=== PATIENT | male | born 1980 | race Caucasian/White ===

== ENCOUNTER 2016-05-25 19:22 | Emergency (ER) | payer OTHER ==
[2016-05-25] MEDS ORDERED: ONDANSETRON 4 MG/2 ML VIAL IVP STA (19:39)
[2016-05-25] MEDS ORDERED: LORazepam 2 MG/ML SYRINGE IV STA (19:39)
[2016-05-25] MEDS ORDERED: SODIUM CHLORIDE 0.9% 1,000 ML IV ONE (19:40)
--- NOTE | 2016-05-25 19:44 | ED ---
General Adult HPI - General Stated complaint: withdrawals Time Seen by Provider: 05/25/16 19:26 Source: patient, RN notes reviewed Mode of arrival: ambulatory Limitations: no limitations - History of Present Illness Initial comments: 36-year-old male presents emergency Department with chief complaint of opiate withdrawal. Patient states that he uses heroin and narcotic pills. Patient states that his been on this for several years. Patient states she does not use intravenous states she does not heroin. Patient states he has not used since last night and his been having nausea, vomiting and diarrhea with abdominal pain and cramping. Patient states that he was in treatment one time but was kicked out for behavior. Patient denies any chest pain or shortness breath. Denies any fevers or chills. Patient denies suicidal thoughts or homicidal ideation. Patient states she does see Dr. Lee at [facility] and takes Neurontin. - Related Data Home Medications Medication Instructions Recorded Confirmed Albuterol Inhaler [Ventolin Hfa 1 - 2 puff INHALATION RT-Q6H PRN 05/25/16 Inhaler] Gabapentin [Neurontin] 600 mg PO BID 05/25/16 05/25/16 Previous Rx's Medication Instructions Recorded Ondansetron Odt [Zofran Odt] 4 mg PO Q8HR PRN #10 tab 05/25/16 cloNIDine HCL [Catapres] 0.1 mg PO BID #10 tab 05/25/16 Allergies Allergy/AdvReac Type Severity Reaction Status Date / Time methylphenidate HCl Allergy Rash/Hives Verified 05/25/16 19:43 [From Ritalin] venom-honey bee Allergy Rash/Hives Verified 05/25/16 19:43 [bee venom (honey bee)] Review of Systems ROS Statement: Those systems with pertinent positive or pertinent negative responses have been documented in the HPI. ROS Other: All systems not noted in ROS Statement are negative. 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, ADD, Bipolar History of Any Multi-Drug Resistant Organisms: None Reported Past Surgical History: No Surgical Hx Reported Past Anesthesia/Blood Transfusion Reactions: No Reported Reaction Past Psychological History: ADD/ADHD, Anxiety, Bipolar Smoking Status: Current every day smoker Past Alcohol Use History: None Reported Past Drug Use History: None Reported - Past Family History mother Family Medical History: Diabetes Mellitus, Hypertension General Exam General appearance: alert, in no apparent distress, anxious Head exam: Present: atraumatic, normocephalic, normal inspection Eye exam: Present: normal appearance, PERRL, EOMI. Absent: scleral icterus, conjunctival injection, periorbital swelling Respiratory exam: Present: normal lung sounds bilaterally. Absent: respiratory distress, wheezes, rales, rhonchi, stridor Cardiovascular Exam: Present: regular rate, normal rhythm, normal heart sounds. Absent: systolic murmur, diastolic murmur, rubs, gallop, clicks GI/Abdominal exam: Present: soft, tenderness (Diffuse), normal bowel sounds. Absent: distended, guarding, rebound, rigid Back exam: Absent: CVA tenderness (R), CVA tenderness (L) Neurological exam: Present: alert, oriented X3, CN II-XII intact Psychiatric exam: Present: anxious Skin exam: Present: warm, dry, intact, normal color. Absent: rash Course Vital Signs 05/25/16 19:40 Temperature 98.6 F Pulse Rate 70 Respiratory 16 Rate Blood Pressure 141/80 O2 Sat by Pulse 98 Oximetry Medical Decision Making - Medical Decision Making 28-year-old male presented for opiate withdrawal. Patient's up within normal limits. Patient is not suicidal or homicidal. Patient will be discharged with Zofran, clonidine for withdrawal symptoms. Patient has outpatient resources for treatment. Return parameters were discussed. - Lab Data Result diagrams: 05/25/16 20:20 05/25/16 20:20 Lab Results 05/25/16 05/25/16 05/25/16 Range/Units 20:20 20:20 20:30 WBC 7.0 (3.8-10.6) k/uL RBC 4.60 (4.30-5.90) m/uL Hgb 14.2 (13.0-17.5) gm/dL Hct 43.2 (39.0-53.0) % MCV 94.0 (80.0-100.0) fL MCH 31.0 (25.0-35.0) pg MCHC 33.0 (31.0-37.0) g/dL RDW 13.3 (11.5-15.5) % Plt Count 259 (150-450) k/uL Neutrophils % 64 % Lymphocytes % 24 % Monocytes % 7 % Eosinophils % 2 % Basophils % 0 % Neutrophils # 4.5 (1.3-7.7) k/uL Lymphocytes # 1.7 (1.0-4.8) k/uL Monocytes # 0.5 (0-1.0) k/uL Eosinophils # 0.1 (0-0.7) k/uL Basophils # 0.0 (0-0.2) k/uL Sodium 139 (137-145) mmol/L Potassium 4.7 (3.5-5.1) mmol/L Chloride 105 (98-107) mmol/L Carbon Dioxide 25 (22-30) mmol/L Anion Gap 9 mmol/L BUN 15 (9-20) mg/dL Creatinine 1.13 (0.66-1.25) mg/dL Est GFR (MDRD) Af Amer >60 (>60 ml/min/1.73 sqM) Est GFR (MDRD) Non-Af >60 (>60 ml/min/1.73 sqM) Glucose 89 (74-99) mg/dL Calcium 9.8 (8.4-10.2) mg/dL Total Bilirubin 1.3 (0.2-1.3) mg/dL AST 25 (17-59) U/L ALT 32 (21-72) U/L Alkaline Phosphatase 58 (38-126) U/L Total Protein 6.8 (6.3-8.2) g/dL Albumin 4.2 (3.5-5.0) g/dL Amylase 41 (30-110) U/L Lipase 179 (23-300) U/L Urine Color Light Yellow Urine Appearance Clear (Clear) Urine pH 7.0 (5.0-8.0) Ur Specific Brady 1.008 (1.001-1.035) Urine Protein Negative (Negative) Urine Glucose (UA) Negative (Negative) Urine Ketones Negative (Negative) Urine Blood Negative (Negative) Urine Nitrate Negative (Negative) Urine Bilirubin Negative (Negative) Urine Urobilinogen <2.0 (<2.0) mg/dL Ur Leukocyte Esterase Negative (Negative) Serum Alcohol <10 mg/dL Disposition Clinical Impression: Opiate withdrawal Disposition: HOME SELF-CARE Condition: Stable Instructions: Narcotic Abuse (ED) Additional Instructions: Please return to the Emergency Department if symptoms worsen or any other concerns. Follow up outpatient with drug abuse center Prescriptions: Ondansetron Odt [Zofran Odt] 4 mg PO Q8HR PRN #10 tab PRN Reason: Nausea cloNIDine HCL [Catapres] 0.1 mg PO BID #10 tab Time of Disposition: 21:05
[2016-05-25 20:35] LABS: Basophils % (A) 0 %; CH 31.8; Eosinophils # (A) 0.1 k/uL (0-0.7); Eosinophils % (A) 2 %; HCT 43.2 % (39.0-53.0); HDW 2.19; HGB 14.2 gm/dL (13.0-17.5); Luc # (Auto) 0.17; Luc % (Auto) 2; Lymphocytes # (A) 1.7 k/uL (1.0-4.8); Lymphocytes % (A) 24 %; Mean Platelet Volume 7.1; Monocytes # (A) 0.5 k/uL (0-1.0); Monocytes % (A) 7 %; Neutrophils # (A) 4.5 k/uL (1.3-7.7); Neutrophils % (A) 64 %; RDW 13.3 % (11.5-15.5); WBC (Perox) 7.12
[2016-05-25 20:56] LABS: ALT 32 U/L (21-72); AST 25 U/L (17-59); Alcohol <10 mg/dL; Alkaline Phosphatase 58 U/L (38-126); Amylase 41 U/L (30-110); Anion Gap 9 mmol/L; Blood Urea Nitrogen 15 mg/dL (9-20); Calcium 9.8 mg/dL (8.4-10.2); Carbon Dioxide 25 mmol/L (22-30); Chloride 105 mmol/L (98-107); Glucose 89 mg/dL (74-99); Non-African American GFR(MDRD) >60 (>60 ml/min/1.73 sqM); Potassium 4.7 mmol/L (3.5-5.1); Sodium 139 mmol/L (137-145); Total Bilirubin 1.3 mg/dL (0.2-1.3); Total Protein 6.8 g/dL (6.3-8.2)
[2016-05-25 20:58] LABS: Appearance,Urine Clear (Clear); Bilirubin,Urine Negative (Negative); Glucose,Urine (UA) Negative (Negative); Ketones,Urine Negative (Negative); Leukocyte Esterase,Urine Negative (Negative); Nitrite,Urine Negative (Negative); Protein,Urine Negative (Negative); Specific Gravity,Urine 1.008 (1.001-1.035); UA Billing (MACRO vs. MICRO) CHEM; Urobilinogen,Urine <2.0 mg/dL (<2.0)
[2016-05-25 21:15] VITALS: BP 124/72; PULSE 82; RESP 20; TEMP 98.2
== END 2016-05-25 21:17 | disposition home or self-care (01) ==
LOC: EC 19:22
DX: F11.23 Opioid dependence with withdrawal (principal); T40.1X1A Poisoning by heroin, accidental (unintentional), initial encounter; Z88.8 Allergy status to other drugs, medicaments and biological substances; Z91.030 Bee allergy status; Z79.899 Other long term (current) drug therapy
CPT/HCPCS: 36415; 80053; 82150; 83690; 85025; 81003; 80306; 80320; 99284; 96374; 96375; 96361; J2060; J2405

== ENCOUNTER 2016-06-12 17:48 | Emergency (ER) | payer OTHER ==
[2016-06-12 17:57] VITALS: RESP 18
[2016-06-12] MEDS ORDERED: ASPIRIN 81 MG CHEW PO STA (18:18)
--- NOTE | 2016-06-12 18:32 | ED ---
Chest Pain HPI - General Chief Complaint: Chest Pain Stated Complaint: medication abuse Time Seen by Provider: 06/12/16 18:09 Source: patient, family, RN notes reviewed Mode of arrival: EMS Limitations: no limitations - History of Present Illness Initial Comments: 36-year-old male presents emergency Department chief complaint of chest pain. Patient states that on-and-off chest pain over the last 2-3 days. Patient states his primary on the left side he states that last a few minutes to hours and then dissipates. Patient states it's not associated with anything. Patient has no known cardiac issues. Patient states he is a smoker of tobacco and marijuana. Patient denies hyperlipidemia, hypertension, diabetes or family history of cardiac disease. Patient states he has no shortness of breath. Patient states the pain is dissipated at this time. Patient denies any associated dizziness, nausea, vomiting, diaphoretic episodes. Patient states that he has taken more [place] and not an unusual but states that he was not intending to harm himself. Patient states he has run out of his [place] in which he is on a pain contract. - Related Data Home Medications Medication Instructions Recorded Confirmed Albuterol Inhaler [Ventolin Hfa 1 - 2 puff INHALATION RT-Q6H PRN 05/25/16 Inhaler] Gabapentin [Neurontin] 600 mg PO BID 05/25/16 06/12/16 Baclofen [Lioresal] 10 mg PO BID PRN 06/12/16 06/12/16 HYDROcodone/APAP 10-325MG [[place] 1 tab PO BID PRN 06/12/16 06/12/16 10-325] Seroquel Xr(Unknown) 1 tab PO HS 06/12/16 06/12/16 Allergies Allergy/AdvReac Type Severity Reaction Status Date / Time methylphenidate HCl Allergy Rash/Hives Verified 06/12/16 18:32 [From Ritalin] venom-honey bee Allergy Rash/Hives Verified 06/12/16 18:32 [bee venom (honey bee)] Review of Systems ROS Statement: Those systems with pertinent positive or pertinent negative responses have been documented in the HPI. ROS Other: All systems not noted in ROS Statement are negative. EKG Findings - EKG Comments: EKG Findings:: EKG performed at 18:056 sinus rhythm with first-degree AV block, rate of 81, MA interval 246, QRS duration 100, QT/QTC 386/448 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, ADD, Bipolar History of Any Multi-Drug Resistant Organisms: None Reported Past Surgical History: No Surgical Hx Reported Past Anesthesia/Blood Transfusion Reactions: No Reported Reaction Past Psychological History: ADD/ADHD, Anxiety, Bipolar Smoking Status: Current every day smoker Past Alcohol Use History: None Reported Past Drug Use History: None Reported - Past Family History mother Family Medical History: Diabetes Mellitus, Hypertension General Exam Limitations: no limitations General appearance: alert, in no apparent distress Head exam: Present: atraumatic, normocephalic, normal inspection Eye exam: Present: normal appearance, PERRL, EOMI. Absent: scleral icterus, conjunctival injection, periorbital swelling ENT exam: Present: mucous membranes moist. Absent: normal exam, normal oropharynx (Edentulous) Neck exam: Present: normal inspection, full ROM. Absent: tenderness, meningismus, lymphadenopathy Respiratory exam: Present: normal lung sounds bilaterally. Absent: respiratory distress, wheezes, rales, rhonchi, stridor Cardiovascular Exam: Present: regular rate, normal rhythm, normal heart sounds. Absent: systolic murmur, diastolic murmur, rubs, gallop, clicks GI/Abdominal exam: Present: soft, normal bowel sounds. Absent: distended, tenderness, guarding, rebound, rigid Back exam: Absent: CVA tenderness (R), CVA tenderness (L) Skin exam: Present: warm, dry, intact, normal color. 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 Patient's EKG, chest x-ray, lab work within normal limits. Patient's pain is not present at this time. Patient believes it is related to his Neurontin. Patient states he'll follow-up with his arm care physician tomorrow and pain management on Friday. Patient is advised to take aspirin daily. Patient is advised follow- up for possible further workup including stress test. Patient was offered observation but refused Disposition Clinical Impression: Atypical chest pain Disposition: HOME SELF-CARE Condition: Stable Instructions: Chest Pain (ED) Additional Instructions: Please return to the Emergency Department if symptoms worsen or any other concerns. Time of Disposition: 19:47
[2016-06-12] MEDS ORDERED: traMADol 50 MG TAB PO STA (18:40)
[2016-06-12 18:41] LABS: Basophils % (A) 1 %; CHCM 34.2; Eosinophils # (A) 0.1 k/uL (0-0.7); Eosinophils % (A) 2 %; HCT 44.6 % (39.0-53.0); HDW 2.27; HGB 14.8 gm/dL (13.0-17.5); Luc # (Auto) 0.11; Luc % (Auto) 2; Lymphocytes # (A) 1.7 k/uL (1.0-4.8); Lymphocytes % (A) 29 %; MCH 31.1 pg (25.0-35.0); MCHC 33.1 g/dL (31.0-37.0); Mean Platelet Volume 7.5; Monocytes # (A) 0.4 k/uL (0-1.0); Monocytes % (A) 7 %; Neutrophils # (A) 3.6 k/uL (1.3-7.7); Neutrophils % (A) 60 %; RBC 4.75 m/uL (4.30-5.90); RDW 13.2 % (11.5-15.5); WBC 5.9 k/uL (3.8-10.6); WBC (Perox) 5.65
[2016-06-12 18:50] LABS: ALT 24 U/L (21-72); AST 17 U/L (17-59); Alkaline Phosphatase 64 U/L (38-126); Anion Gap 11 mmol/L; Blood Urea Nitrogen 14 mg/dL (9-20); Calcium 9.4 mg/dL (8.4-10.2); Carbon Dioxide 23 mmol/L (22-30); Chloride 108 mmol/L (98-107); Glucose 107 mg/dL (74-99); Magnesium 1.9 mg/dL (1.6-2.3); Non-African American GFR(MDRD) >60 (>60 ml/min/1.73 sqM); Sodium 142 mmol/L (137-145); Total Bilirubin 1.8 mg/dL (0.2-1.3); Total Protein 6.8 g/dL (6.3-8.2)
[2016-06-12 18:52] LABS: INR 1.3 (<1.1); Prothrombin Time 12.4 sec (9.0-12.0)
[2016-06-12 19:01] LABS: Creatine Kinase 55 U/L (55-170)
--- NOTE | 2016-06-12 19:03 | XR ---
EXAMINATION TYPE: XR chest 2V DATE OF EXAM: 06/12/2016 6:58 PM COMPARISON: 05/29/2013 HISTORY: Left-sided chest pain TECHNIQUE: Frontal and lateral views of the chest are obtained. FINDINGS: Heart and mediastinum are normal. Lungs are clear. Diaphragm is normal. There are chest le ads. Bony thorax appears intact. IMPRESSION: No active cardiopulmonary disease. There is improved inspiration compared to last exam.
[2016-06-12 19:15] LABS: Creatine Kinase MB 0.8 ng/mL (0.0-2.4); Troponin I <0.012 ng/mL (0.000-0.034)
[2016-06-12 20:02] VITALS: BP 102/50; PULSE 60; TEMP 97.9
== END 2016-06-12 20:01 | disposition home or self-care (01) ==
LOC: EC 17:48
DX: R07.89 Other chest pain (principal); F31.9 Bipolar disorder, unspecified; F17.290 Nicotine dependence, other tobacco product, uncomplicated; Z88.8 Allergy status to other drugs, medicaments and biological substances; Z91.030 Bee allergy status; Z79.899 Other long term (current) drug therapy
CPT/HCPCS: 36415; 71020; 80053; 82550; 82553; 83690; 83735; 84484; 85025; 85610; 85730; 93005; 99285

== ENCOUNTER 2017-05-03 20:24 | Emergency (ER) | payer OTHER ==
[2017-05-03 20:40] VITALS: BP 145/87; PULSE 83; RESP 20; TEMP 99.1
--- NOTE | 2017-05-03 21:15 | ED ---
SOB HPI - General Chief Complaint: Shortness of Breath Stated Complaint: SOB Time Seen by Provider: 05/03/17 21:13 Source: patient, EMS, RN notes reviewed, old records reviewed Mode of arrival: EMS Limitations: no limitations - History of Present Illness Initial Comments: This is a 37-year-old male presents the day with you complain of shortness of breath. He was brought in by the emergency response, states he needs another albuterol inhaler. He received reading treatment in the EMS. Patient reports he feels better that time.When patient arrived emergency apartment he was becoming very irate. Patient reports that staff was "disrespect him". Patient was cursing and screaming in emergency department and there was no specific reasoning. - Related Data Home Medications Medication Instructions Recorded Confirmed Albuterol Inhaler [Ventolin Hfa 1 - 2 puff INHALATION RT-Q6H PRN 05/25/16 Inhaler] Gabapentin [Neurontin] 600 mg PO BID 05/25/16 06/12/16 Baclofen [Lioresal] 10 mg PO BID PRN 06/12/16 06/12/16 HYDROcodone/APAP 10-325MG [[place] 1 tab PO BID PRN 06/12/16 06/12/16 10-325] Seroquel Xr(Unknown) 1 tab PO HS 06/12/16 06/12/16 Previous Rx's Medication Instructions Recorded Albuterol Inhaler [Ventolin Hfa 1 - 2 puff INHALATION Q6HR PRN #2 05/03/17 Inhaler] inhaler Allergies Allergy/AdvReac Type Severity Reaction Status Date / Time methylphenidate HCl Allergy Rash/Hives Verified 06/12/16 18:32 [From Ritalin] venom-honey bee Allergy Rash/Hives Verified 06/12/16 18:32 [bee venom (honey bee)] Review of Systems ROS Statement: Those systems with pertinent positive or pertinent negative responses have been documented in the HPI. ROS Other: All systems not noted in ROS Statement are negative. 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, ADD, Bipolar History of Any Multi-Drug Resistant Organisms: None Reported Past Surgical History: No Surgical Hx Reported Past Anesthesia/Blood Transfusion Reactions: No Reported Reaction Past Psychological History: ADD/ADHD, Anxiety, Bipolar Smoking Status: Current every day smoker Past Alcohol Use History: None Reported Past Drug Use History: Marijuana - Past Family History mother Family Medical History: Diabetes Mellitus, Hypertension General Exam - General Exam Comments Initial Comments: This is a 37 year old male, no distress. Limitations: no limitations General appearance: alert, in no apparent distress Head exam: Present: atraumatic, normocephalic, normal inspection Eye exam: Present: normal appearance, PERRL, EOMI. Absent: scleral icterus, conjunctival injection, periorbital swelling ENT exam: Present: normal exam, mucous membranes moist Neck exam: Present: normal inspection. Absent: tenderness, meningismus, lymphadenopathy Respiratory exam: Present: normal lung sounds bilaterally. Absent: respiratory distress, wheezes, rales, rhonchi, stridor Cardiovascular Exam: Present: regular rate, normal rhythm, normal heart sounds. Absent: systolic murmur, diastolic murmur, rubs, gallop, clicks GI/Abdominal exam: Present: soft, normal bowel sounds. Absent: distended, tenderness, guarding, rebound, rigid Extremities exam: Present: normal inspection, full ROM, normal capillary refill. Absent: tenderness, pedal edema, joint swelling, calf tenderness Back exam: Present: normal inspection Neurological exam: Present: alert, oriented X3, CN II-XII intact Psychiatric exam: Present: normal affect, normal mood Skin exam: Present: warm, dry, intact, normal color. Absent: rash Course Vital Signs 05/03/17 05/03/17 20:36 20:40 Temperature 99.1 F Pulse Rate 83 Respiratory 20 20 Rate Blood Pressure 145/87 O2 Sat by Pulse 95 Oximetry Medical Decision Making - Medical Decision Making This is a 37 year old male comes via EMS for shortness of breath and out of inhaler. Patient arrives and has no wheezing and had been screaming and cursing the entire ED visit. All staff were cooperative with patient and discussed that he needed to stop cursing. Patient lungs are clear, discussed I will write him for another albuterol inhaler. Patient called for a ride home, and was escorted out by security. Disposition Clinical Impression: Shortness of breath Disposition: HOME SELF-CARE Condition: Stable Instructions: Asthma (ED) Additional Instructions: Follow-up with a primary care provider. Return to emergency department if any alarming signs symptoms occur. Use the albuterol inhaler when he have any further episodes of difficulty breathing. Have a wonderful Martha! Prescriptions: Albuterol Inhaler [Ventolin Hfa Inhaler] 1 - 2 puff INHALATION Q6HR PRN #2 inhaler PRN Reason: Shortness Of Breath Referrals: None,Stated [Primary Care Provider] - 1-2 days vYrose Vitale MD [STAFF PHYSICIAN] - 1-2 days Time of Disposition: 21:14
--- NOTE | 2017-05-05 03:01 | CDI ---
Documentation Clarification OP Dear DEBORAH Dc: Please do addendum to ED report for HPI , Physical exam and MDM. Thank you, Ara Tee Faculty Physician If you have any question, Please contact equipment hire manager at [phone] [facility]
== END 2017-05-03 21:26 | disposition home or self-care (01) ==
LOC: EC 20:24
DX: R06.02 Shortness of breath (principal); F31.9 Bipolar disorder, unspecified; F41.9 Anxiety disorder, unspecified; F90.9 Attention-deficit hyperactivity disorder, unspecified type; F17.200 Nicotine dependence, unspecified, uncomplicated; Z79.899 Other long term (current) drug therapy; Z91.030 Bee allergy status; Z88.8 Allergy status to other drugs, medicaments and biological substances
CPT/HCPCS: 99285

== ENCOUNTER 2017-05-13 14:51 | Observation (INO) | payer OTHER ==
[2017-05-13 16:21] LABS: Basophils % (A) 0 %; Eosinophils # (A) 0.1 k/uL (0-0.7); Eosinophils % (A) 2 %; HCT 44.9 % (39.0-53.0); HGB 15.1 gm/dL (13.0-17.5); Lymphocytes # (A) 1.7 k/uL (1.0-4.8); Lymphocytes % (A) 23 %; MCH 30.9 pg (25.0-35.0); MCHC 33.7 g/dL (31.0-37.0); MCV 91.5 fL (80.0-100.0); Mean Platelet Volume 6.9; Monocytes # (A) 0.6 k/uL (0-1.0); Monocytes % (A) 9 %; Neutrophils # (A) 4.8 k/uL (1.3-7.7); Neutrophils % (A) 63 %; Platelet Count 350 k/uL (150-450); RBC 4.91 m/uL (4.30-5.90); RDW 12.5 % (11.5-15.5); WBC 7.5 k/uL (3.8-10.6)
[2017-05-13 16:31] LABS: ALT 30 U/L (21-72); AST 20 U/L (17-59); Albumin 4.2 g/dL (3.5-5.0); Alkaline Phosphatase 67 U/L (38-126); Amylase 67 U/L (30-110); Anion Gap 12 mmol/L; Blood Urea Nitrogen 19 mg/dL (9-20); Calcium 10.2 mg/dL (8.4-10.2); Carbon Dioxide 25 mmol/L (22-30); Chloride 101 mmol/L (98-107); Glucose 91 mg/dL (74-99); Lipase 250 U/L (23-300); Sodium 138 mmol/L (137-145); Total Bilirubin 1.2 mg/dL (0.2-1.3); Total Protein 7.1 g/dL (6.3-8.2)
[2017-05-13 16:36] LABS: INR 1.2 (<1.2); Partial Thromboplastin Time 27.1 sec (22.0-30.0); Prothrombin Time 11.4 sec (9.0-12.0)
--- NOTE | 2017-05-13 16:36 | XR ---
EXAMINATION TYPE: XR chest 2V DATE OF EXAM: 05/13/2017 COMPARISON: June 12, 2016 HISTORY: Chest pain TECHNIQUE: Frontal and lateral views of the chest are obtained. FINDINGS: There is no focal air space opacity. Hyperinflation is noted. No evidence for pneumothorax. No pleural effusion. The cardiac silhouette size is within normal limits. The osseous structures are grossly intact. IMPRESSION: 1. No acute cardiopulmonary process.
[2017-05-13 16:41] LABS: D-Dimer 0.19 mg/L FEU (<0.60)
[2017-05-13 16:45] LABS: Creatine Kinase 62 U/L (55-170)
[2017-05-13 16:58] LABS: Creatine Kinase MB 1.3 ng/mL (0.0-2.4); Troponin I <0.012 ng/mL (0.000-0.034)
--- NOTE | 2017-05-13 17:03 | ED ---
General Adult HPI - General Chief complaint: Recheck/Abnormal Lab/Rx Stated complaint: cannot sleep/poss withdrawals Time Seen by Provider: 05/13/17 15:54 Source: patient, RN notes reviewed, old records reviewed Mode of arrival: EMS Limitations: no limitations - History of Present Illness Initial comments: This is a 36-year-old male with a known history of drug abuse who apparently ran out of his pain medication did take some Suboxone that he had bought from someone. He also complains some right-sided abdominal pain and right shoulder pain. He denies any overt chest pain or shortness breath fevers chills he did have some nausea he did have some nausea apparently not sure whether this is from withdrawal or not. - Related Data Home Medications Medication Instructions Recorded Confirmed Gabapentin [Neurontin] 600 mg PO BID 05/25/16 05/13/17 Baclofen [Lioresal] 10 mg PO BID PRN 06/12/16 05/13/17 HYDROcodone/APAP 10-325MG [[place] 1 tab PO BID PRN 06/12/16 05/13/17 10-325] Albuterol Inhaler [Ventolin Hfa 1 - 2 puff INHALATION RT-Q6H PRN 05/13/17 Inhaler] Ondansetron Odt [Zofran Odt] 4 mg PO Q12HR PRN 05/13/17 05/13/17 QUEtiapine FUMARATE [SEROquel XR] 150 mg PO HS 05/13/17 05/13/17 Suboxone Unknown 1 film PO ONCE PRN 05/13/17 05/13/17 Allergies Allergy/AdvReac Type Severity Reaction Status Date / Time methylphenidate HCl Allergy Rash/Hives Verified 05/13/17 16:20 [From Ritalin] venom-honey bee Allergy Rash/Hives Verified 05/13/17 16:20 [bee venom (honey bee)] Review of Systems ROS Statement: Those systems with pertinent positive or pertinent negative responses have been documented in the HPI. ROS Other: All systems not noted in ROS Statement are negative. 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, ADD, Bipolar History of Any Multi-Drug Resistant Organisms: None Reported Past Surgical History: No Surgical Hx Reported Past Anesthesia/Blood Transfusion Reactions: No Reported Reaction Past Psychological History: ADD/ADHD, Anxiety, Bipolar Smoking Status: Current every day smoker Past Alcohol Use History: None Reported Past Drug Use History: Marijuana - Past Family History mother Family Medical History: Diabetes Mellitus, Hypertension General Exam - General Exam Comments Initial Comments: Is a well-developed well-nourished awake alert oriented 3 male Limitations: no limitations General appearance: alert, anxious Head exam: Present: atraumatic, normocephalic, normal inspection Eye exam: Present: normal appearance, PERRL, EOMI. Absent: scleral icterus, conjunctival injection, periorbital swelling ENT exam: Present: normal exam, mucous membranes moist Neck exam: Present: normal inspection, other (Tenderness palpation over the right trapezius musculature.). Absent: tenderness, meningismus, lymphadenopathy Respiratory exam: Present: normal lung sounds bilaterally. Absent: respiratory distress, wheezes, rales, rhonchi, stridor Cardiovascular Exam: Present: regular rate, normal rhythm, normal heart sounds. Absent: systolic murmur, diastolic murmur, rubs, gallop, clicks GI/Abdominal exam: Present: soft, normal bowel sounds. Absent: distended, tenderness, guarding, rebound, rigid Extremities exam: Present: normal inspection, full ROM, normal capillary refill. Absent: tenderness, pedal edema, joint swelling, calf tenderness Back exam: Present: normal inspection Neurological exam: Present: alert, oriented X3, CN II-XII intact Psychiatric exam: Present: normal affect, normal mood Skin exam: Present: warm, dry, intact, normal color. Absent: rash Course Vital Signs 05/13/17 05/13/17 14:54 16:12 Temperature 97.2 F L Pulse Rate 60 52 L Respiratory 18 16 Rate Blood Pressure 138/99 139/73 O2 Sat by Pulse 99 98 Oximetry - Reevaluation(s) Reevaluation #1: 05/13/17 19:06 Repeat EKG showed a sinus bradycardia of 47 with first-degree AV block IL interval to 16 QRS 104 QT since QTC of 522/461 prolonged QT and no acute ST-T wave changes from the original EKG. Medical Decision Making - Medical Decision Making I did discuss the findings with the patient is EKG changes and the atypical chest pain facial be admitted for evaluation. - Lab Data Result diagrams: 05/13/17 16:05 05/13/17 16:05 Lab Results 05/13/17 05/13/17 05/13/17 Range/Units 16:05 16:05 16:05 WBC 7.5 (3.8-10.6) k/uL RBC 4.91 (4.30-5.90) m/uL Hgb 15.1 (13.0-17.5) gm/dL Hct 44.9 (39.0-53.0) % MCV 91.5 (80.0-100.0) fL MCH 30.9 (25.0-35.0) pg MCHC 33.7 (31.0-37.0) g/dL RDW 12.5 (11.5-15.5) % Plt Count 350 (150-450) k/uL Neutrophils % 63 % Lymphocytes % 23 % Monocytes % 9 % Eosinophils % 2 % Basophils % 0 % Neutrophils # 4.8 (1.3-7.7) k/uL Lymphocytes # 1.7 (1.0-4.8) k/uL Monocytes # 0.6 (0-1.0) k/uL Eosinophils # 0.1 (0-0.7) k/uL Basophils # 0.0 (0-0.2) k/uL PT (9.0-12.0) sec INR (<1.2) APTT (22.0-30.0) sec D-Dimer (<0.60) mg/L FEU Sodium 138 (137-145) mmol/L Potassium 4.0 (3.5-5.1) mmol/L Chloride 101 (98-107) mmol/L Carbon Dioxide 25 (22-30) mmol/L Anion Gap 12 mmol/L BUN 19 (9-20) mg/dL Creatinine 1.04 (0.66-1.25) mg/dL Est GFR (MDRD) Af Amer >60 (>60 ml/min/1.73 sqM) Est GFR (MDRD) Non-Af >60 (>60 ml/min/1.73 sqM) Glucose 91 (74-99) mg/dL Calcium 10.2 (8.4-10.2) mg/dL Magnesium 2.0 (1.6-2.3) mg/dL Total Bilirubin 1.2 (0.2-1.3) mg/dL AST 20 (17-59) U/L ALT 30 (21-72) U/L Alkaline Phosphatase 67 (38-126) U/L Total Creatine Kinase 62 (55-170) U/L CK-MB (CK-2) 1.3 (0.0-2.4) ng/mL CK-MB (CK-2) Rel Index 2.1 Troponin I <0.012 (0.000-0.034) ng/mL NT-Pro-B Natriuret Pep pg/mL Total Protein 7.1 (6.3-8.2) g/dL Albumin 4.2 (3.5-5.0) g/dL Amylase 67 (30-110) U/L Lipase 250 (23-300) U/L 05/13/17 05/13/17 Range/Units 16:05 16:05 WBC (3.8-10.6) k/uL RBC (4.30-5.90) m/uL Hgb (13.0-17.5) gm/dL Hct (39.0-53.0) % MCV (80.0-100.0) fL MCH (25.0-35.0) pg MCHC (31.0-37.0) g/dL RDW (11.5-15.5) % Plt Count (150-450) k/uL Neutrophils % % Lymphocytes % % Monocytes % % Eosinophils % % Basophils % % Neutrophils # (1.3-7.7) k/uL Lymphocytes # (1.0-4.8) k/uL Monocytes # (0-1.0) k/uL Eosinophils # (0-0.7) k/uL Basophils # (0-0.2) k/uL PT 11.4 (9.0-12.0) sec INR 1.2 H (<1.2) APTT 27.1 (22.0-30.0) sec D-Dimer 0.19 (<0.60) mg/L FEU Sodium (137-145) mmol/L Potassium (3.5-5.1) mmol/L Chloride (98-107) mmol/L Carbon Dioxide (22-30) mmol/L Anion Gap mmol/L BUN (9-20) mg/dL Creatinine (0.66-1.25) mg/dL Est GFR (MDRD) Af Amer (>60 ml/min/1.73 sqM) Est GFR (MDRD) Non-Af (>60 ml/min/1.73 sqM) Glucose (74-99) mg/dL Calcium (8.4-10.2) mg/dL Magnesium (1.6-2.3) mg/dL Total Bilirubin (0.2-1.3) mg/dL AST (17-59) U/L ALT (21-72) U/L Alkaline Phosphatase (38-126) U/L Total Creatine Kinase (55-170) U/L CK-MB (CK-2) (0.0-2.4) ng/mL CK-MB (CK-2) Rel Index Troponin I (0.000-0.034) ng/mL NT-Pro-B Natriuret Pep 188 pg/mL Total Protein (6.3-8.2) g/dL Albumin (3.5-5.0) g/dL Amylase (30-110) U/L Lipase (23-300) U/L - EKG Data -: EKG Interpreted by Me EKG shows normal: sinus rhythm (Sinus rhythm with a rate of 51. Interval to 16 QRS 98 daily since QTC of 498/458 nonspecific T-wave configuration first-degree AV block this is compared with an EKG dated 06/12/16 which does show T-wave inversions today compared to that of that date. T-wave inversions in leads V1 through V5) - Radiology Data Radiology results: report reviewed (I did review the imaging and reports no acute findings.), image reviewed Disposition Clinical Impression: Atypical chest pain, Acute electrocardiogram changes Disposition: ADMITTED IP TO THIS [facility] Condition: Stable Referrals: Delicia Rich MD [Primary Care Provider] - 1-2 days
[2017-05-13] MEDS ORDERED: LORazepam 2 MG/ML INJ IV STA (17:41)
[2017-05-13] MEDS ORDERED: HEPARIN SODIUM,PORCINE 5,000 UNIT/ML 1 ML VIAL IV ONE (19:07)
[2017-05-13] MEDS ORDERED: NITROGLYCERIN SL TABS 0.4 MG TAB SUBLINGUAL PRN (19:07)
[2017-05-13] MEDS ORDERED: HYDROcodone/APAP 10-325MG 1 EACH TAB PO PRN (19:10)
[2017-05-13] MEDS ORDERED: ONDANSETRON ODT 4 MG TAB PO PRN (19:10)
[2017-05-13] MEDS ORDERED: ALBUTEROL NEBULIZED 2.5 MG/3 ML INHALATION PRN (19:10)
[2017-05-13] MEDS ORDERED: BACLOFEN 10 MG TAB PO PRN (19:10)
[2017-05-13] MEDS ORDERED: HEPARIN SOD,PORK IN 0.45% NACL 25,000 UNIT in 0.45% NACL 1 500ML.BAG IV SCH (19:15)
[2017-05-13 23:07] LABS: Creatine Kinase 60 U/L (55-170)
[2017-05-13 23:21] LABS: Creatine Kinase MB 1.2 ng/mL (0.0-2.4); Troponin I <0.012 ng/mL (0.000-0.034)
[2017-05-13] MEDS: GABAPENTIN 300 MG CAP PO SCH (23:27)
[2017-05-13] MEDS: QUEtiapine 25 MG TAB PO SCH (23:27)
[2017-05-14] MEDS: HYDROcodone/APAP 10-325MG 1 EACH TAB PO PRN ×3 (03:36→14:30)
[2017-05-14 06:58] LABS: Creatine Kinase 49 U/L (55-170)
[2017-05-14 07:11] LABS: Creatine Kinase MB 0.9 ng/mL (0.0-2.4); Troponin I <0.012 ng/mL (0.000-0.034)
[2017-05-14] MEDS: QUEtiapine 25 MG TAB PO SCH (08:18)
[2017-05-14] MEDS: GABAPENTIN 300 MG CAP PO SCH (08:18)
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
[2017-05-14] MEDS ORDERED: ASPIRIN 325 MG TAB PO SCH (09:00)
[2017-05-14 09:01] LABS: Cholesterol 145 mg/dL (<200); HDL Cholesterol 57 mg/dL (40-60); LDL Cholesterol,Calculated 79 mg/dL (0-99); Triglycerides 45 mg/dL (<150)
--- NOTE | 2017-05-14 11:02 | ECHOF ---
Referral Reason:assess lvf MEASUREMENTS -------- HEIGHT: 180.3 cm WEIGHT: 80.7 kg BP: RVIDd: 2.9 cm (< 3.3) IVSd: 1.1 cm (0.6 - 1.1) LVIDd: 3.7 cm (3.9 - 5.3) LVPWd: 1.3 cm (0.6 - 1.1) IVSs: 1.8 cm LVIDs: 2.8 cm LVPWs: 2.0 cm Ao Diam: 3.9 cm (2.0 - 3.7) AV Cusp: 2.8 cm (1.5 - 2.6) LA Diam: 2.2 cm (2.7 - 3.8) MV EXCURSION: 17.570 mm (> 18.000) MV EF SLOPE: 128 mm/s (70 - 150) EPSS: 0.9 cm MV E Randy: 0.59 m/s MV DecT: 330 ms MV A Randy: 0.35 m/s MV E/A Ratio: 1.67 RAP: 5.00 mmHg RVSP: 16.30 mmHg FINDINGS -------- Sinus rhythm. Pt. not compliant. The left ventricular size is normal. There is mild concentric left ventricular hypertrophy. Overa ll left ventricular systolic function is normal with, an EF between 55 - 60 %. The right ventricle is normal in size and function. The left atrium is normal in size. The right atrium is normal in size. The aortic valve is trileaflet, and appears structurally normal. No aortic stenosis or regurgitation. There is trace mitral regurgitation. Trace tricuspid regurgitation present. The right ventricular systolic pressure, as measured by Dopp ler, is 16.30mmHg. Pulmonic valve appears structurally normal. The aortic root is mildy dilated. The pericardium is normal. CONCLUSIONS -------- 1. Sinus rhythm. 2. Pt. not compliant. 3. The left ventricular size is normal. 4. There is mild concentric left ventricular hypertrophy. 5. Overall left ventricular systolic function is normal with, an EF between 55 - 60 %. 6. The right ventricle is normal in size and function. 7. The left atrium is normal in size. 8. The right atrium is normal in size. 9. The aortic valve is trileaflet, and appears structurally normal. No aortic stenosis or regurgitati on. 10. There is trace mitral regurgitation. 11. Trace tricuspid regurgitation present. 12. The right ventricular systolic pressure, as measured by Doppler, is 16.30mmHg. 13. Pulmonic valve appears structurally normal. 14. The aortic root is mildy dilated. 15. The pericardium is normal. PANTOGRAPH WATCHER: Shirlene Monahan RDCS
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
[2017-05-14 23:07] VITALS: BP 108/74; PULSE 79; RESP 20; TEMP 97.4
[2017-05-14 23:15] VITALS: BMI 24.2
--- NOTE | 2017-05-15 09:00 | ECHOS ---
STRESS ECHOCARDIOGRAM AGE: 37 SEX: M HT: 72" WT: 178 PROTOCOL: Stress Echo STAGE: 2 DURATION OF EXERCISE: 5 minutes HEART RATE REST: 80 beats per minute. BLOOD PRESSURE REST: 124/94 mmHg. MAXIMUM HEART RATE ACHIEVED: 159 beats per minute. MAXIMUM BLOOD PRESSURE: 140/64 85% MPHR: 154 100% MPHR: 181 METS: 7.0 INDICATIONS: Chest pain. CLINICAL INFORMATION: Baseline 12-lead ECG showed normal sinus rhythm with a mildly prolonged GA interval at baseline. The patient exercised on a Larry protocol for 5 minutes achieving a peak heart rate of 159 beats per minute. Normal blood pressure response to exercise. No ECG evidence for ischemia. No arrhythmias noted. IMPRESSION: 1. Low workload achieved during stress testing. 2. GA interval at the upper limits of normal. 3. No ECG evidence for ischemia or arrhythmia. MMODL / IJN: [id number] /
== END 2017-05-14 14:50 | disposition home or self-care (01) ==
LOC: EC 14:51 → 6SEL 19:08
PROVIDERS: ADMIT Internal Medicine; ATTEND Internal Medicine
DX: R07.89 Other chest pain (principal); R94.31 Abnormal electrocardiogram [ECG] [EKG]; M25.511 Pain in right shoulder; R10.9 Unspecified abdominal pain; R45.1 Restlessness and agitation; F90.9 Attention-deficit hyperactivity disorder, unspecified type; F31.9 Bipolar disorder, unspecified; F41.9 Anxiety disorder, unspecified; J45.909 Unspecified asthma, uncomplicated; F17.200 Nicotine dependence, unspecified, uncomplicated; F19.10 Other psychoactive substance abuse, uncomplicated; G89.4 Chronic pain syndrome; Z83.3 Family history of diabetes mellitus; Z82.49 Family history of ischemic heart disease and other diseases of the circulatory system; Z88.8 Allergy status to other drugs, medicaments and biological substances; Z91.030 Bee allergy status; Z79.899 Other long term (current) drug therapy
CPT/HCPCS: 99285; 96375 ×2; 96376 ×2; 96365 ×2; 96366 ×5; 36415; 93005; 93017; 93306; 93350; 85379; 83880; 80061; 80053; 82150; 82550 ×2; 82553 ×2; 83690; 83735; 84484 ×2; 85025; 85610; 85730 ×2; 71046; G0378 ×2; J2060; J1644 ×2

== ENCOUNTER 2017-05-31 00:25 | Emergency (ER) | payer OTHER ==
[2017-05-31 00:35] VITALS: RESP 16; TEMP 98.6
--- NOTE | 2017-05-31 00:40 | ED ---
General Adult HPI - General Chief complaint: Recheck/Abnormal Lab/Rx Stated complaint: Tired Time Seen by Provider: 05/31/17 00:25 Source: patient, RN notes reviewed Mode of arrival: EMS Limitations: no limitations - History of Present Illness Initial comments: This is a 37-year-old male who presents emergency Department stating that he feels a little tired and slightly dizzy. Patient states symptoms are starting to resolve at this time. Patient states earlier tonight he took one of his [place] and his Seroquel and then he smoked some pot which was more potent than normal and that is when his symptoms began. Patient states he had no chest pain no difficulty breathing no shortness of breath. Patient denies being near syncopal. Patient denies any any palpitations. Patient denies abdominal pain patient denies nausea vomiting diarrhea. Patient denies any recent fever chills or cough. Patient denies headache patient denies numbness or weakness. - Related Data Home Medications Medication Instructions Recorded Confirmed Gabapentin [Neurontin] 600 mg PO BID 05/25/16 05/13/17 Baclofen [Lioresal] 10 mg PO BID PRN 06/12/16 05/13/17 Albuterol Inhaler [Ventolin Hfa 1 - 2 puff INHALATION RT-Q6H PRN 05/13/17 Inhaler] Ondansetron Odt [Zofran ODT] 4 mg PO Q12HR PRN 05/13/17 05/13/17 QUEtiapine FUMARATE [SEROquel XR] 150 mg PO HS 05/13/17 05/13/17 Suboxone Unknown 1 film PO ONCE PRN 05/13/17 05/13/17 Previous Rx's Medication Instructions Recorded HYDROcodone/APAP 10-325MG [[place] 1 each PO Q6H PRN #15 tab 05/14/17 10-325] Allergies Allergy/AdvReac Type Severity Reaction Status Date / Time methylphenidate HCl Allergy Rash/Hives Verified 05/31/17 00:31 [From Ritalin] venom-honey bee Allergy Rash/Hives Verified 05/31/17 00:31 [bee venom (honey bee)] Review of Systems ROS Statement: Those systems with pertinent positive or pertinent negative responses have been documented in the HPI. ROS Other: All systems not noted in ROS Statement are negative. 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, ADD, Bipolar History of Any Multi-Drug Resistant Organisms: None Reported Past Surgical History: No Surgical Hx Reported Past Anesthesia/Blood Transfusion Reactions: No Reported Reaction Past Psychological History: ADD/ADHD, Anxiety, Bipolar Smoking Status: Current every day smoker Past Alcohol Use History: None Reported Past Drug Use History: Marijuana - Past Family History mother Family Medical History: Diabetes Mellitus, Hypertension General Exam - General Exam Comments Initial Comments: GENERAL: Patient is well-developed and well-nourished. Patient is nontoxic and well- hydrated and is in no distress. ENT: Neck is soft and supple. No significant lymphadenopathy is noted. Oropharynx is clear. Moist mucous membranes. Neck has full range of motion without eliciting any pain. EYES: The sclera were anicteric and conjunctiva were pink and moist. Extraocular movements were intact and pupils were equal round and reactive to light. Eyelids were unremarkable. PULMONARY: Unlabored respirations. Good breath sounds bilaterally. No audible rales rhonchi or wheezing was noted. CARDIOVASCULAR: There is a regular rate and rhythm without any murmurs gallops or rubs. ABDOMEN: Soft and nontender with normal bowel sounds. SKIN: Skin is clear with no lesions or rashes and otherwise unremarkable. NEUROLOGIC: Patient is alert and oriented x3. Cranial nerves II through XII are grossly intact. Motor and sensory are also intact. Normal speech, volume and content. Symmetrical smile. MUSCULOSKELETAL: Normal extremities with adequate strength and full range of motion. LYMPHATICS: No significant lymphadenopathy is noted PSYCHIATRIC: Normal psychiatric exam Limitations: no limitations Course Vital Signs 05/31/17 00:27 Temperature 98.6 F Pulse Rate 100 Respiratory 16 Rate Blood Pressure 134/76 O2 Sat by Pulse 95 Oximetry Medical Decision Making - Medical Decision Making EKG shows sinus rhythm at 96 bpm [place] interval is 258 QRS is 90 QT interval 346 QTC is 437. Patient's EKG shows no ST segment elevation or depression or T wave abnormalities are noted. Disposition Clinical Impression: Adverse drug effect Disposition: HOME SELF-CARE Condition: Good Instructions: Adverse Drug Reaction (ED) Referrals: Delicia Rich MD [Primary Care Provider] - 1-2 days Time of Disposition: :
[2017-05-31 01:01] VITALS: BP 131/63; PULSE 101
== END 2017-05-31 01:12 | disposition home or self-care (01) ==
LOC: EC 00:25
DX: R42 Dizziness and giddiness (principal); T50.905A Adverse effect of unspecified drugs, medicaments and biological substances, initial encounter; F31.9 Bipolar disorder, unspecified; F17.290 Nicotine dependence, other tobacco product, uncomplicated; Z79.899 Other long term (current) drug therapy; Z88.8 Allergy status to other drugs, medicaments and biological substances; Z91.030 Bee allergy status
CPT/HCPCS: 93005; 99284

== ENCOUNTER 2017-09-02 10:50 | Inpatient (IN) | payer OTHER ==
[2017-09-02] MEDS ORDERED: IPRATROPIUM-ALBUTEROL 3 ML NEB INHALATION STA ×2 (11:03→12:25)
[2017-09-02] MEDS ORDERED: methylPREDNISolone SOD SUCCI 125 MG/2 ML VIAL IV STA (11:03)
[2017-09-02] MEDS ORDERED: LEVOFLOXACIN 750MG-D5W PMX 750 MG in DEXTROSE/WATER 1 150ML.BAG IVPB STA (11:03)
[2017-09-02] MEDS ORDERED: SODIUM CHLORIDE 0.9% 1,000 ML IV STA (11:03)
[2017-09-02] MEDS ORDERED: SODIUM CHLORIDE 0.9% 500 ML IV STA (11:03)
[2017-09-02] MEDS ORDERED: KETOROLAC 30 MG/ML 1 ML VIAL IVP STA (11:27)
[2017-09-02] MEDS ORDERED: ACETAMINOPHEN TAB 500 MG TAB PO STA (11:27)
--- NOTE | 2017-09-02 11:33 | ED ---
General Adult HPI - General Chief complaint: Upper Respiratory Infection Stated complaint: SUICIDAL, DARYL Time Seen by Provider: 09/02/17 11:00 Source: EMS Mode of arrival: EMS Limitations: no limitations - History of Present Illness Initial comments: This 37-year-old white male presents with a complaint of some difficulty in breathing. It has been present for the last 2-3 days. He's been coughing up some yellowish sputum. He has felt feverish at times. She does smoke approximately 2 packs per day and has asthma. He states that it feels like his asthma is exacerbated. He has had some wheezing. He complains of diffuse pain throughout his body but does have a history of chronic pain problems. He states that he just that his pain pills filled a week ago and he is out of them are ready. No other complaints or modifying factors. He does relate that his baby's mother apparently had similar symptoms this past week and was much improved after being on antibiotics for 3 days. He does express to the nurse that he wants to go through opioid detox. He apparently told EMS that he may be suicidal and he is worried about withdrawing from his opiates. Upon further discussion with myself, he denies any suicidal ideations whatsoever. He states that he has had some mild depression. He states that he is worried about running out of his pain medications. He apparently took more of his pain medications and he should've recently. He apparently was prescribed 90 pills of his [place] 10/325 on the 12th of this month and states that he only has 25 pills left. He relates that he has multiple bulging disks in his back and he is wanting to get off the pills and get on either Suboxone or methadone. He is quite infatuated regarding his pain conditions and discussion regarding his requirement of narcotics. - Related Data Home Medications Medication Instructions Recorded Confirmed Gabapentin [Neurontin] 600 mg PO BID PRN 05/25/16 09/02/17 Baclofen [Lioresal] 10 mg PO BID PRN 06/12/16 09/02/17 Ondansetron Odt [Zofran ODT] 4 mg PO Q12HR PRN 05/13/17 09/02/17 QUEtiapine FUMARATE [SEROquel XR] 150 mg PO HS 05/13/17 09/02/17 Ergocalciferol (Vitamin D2) 50,000 unit PO Q7D 09/02/17 09/02/17 [Vitamin D2] HYDROcodone/APAP 10-325MG [[place] 1 tab PO TID PRN 09/02/17 09/02/17 10-325] Lidocaine 3% Cream 1 applic TOPICAL TID PRN 09/02/17 09/02/17 Omeprazole [PriLOSEC] 20 mg PO AC-BID 09/02/17 09/02/17 Allergies Allergy/AdvReac Type Severity Reaction Status Date / Time methylphenidate HCl Allergy Rash/Hives Verified 09/02/17 11:16 [From Ritalin] venom-honey bee Allergy Rash/Hives Verified 09/02/17 11:16 [bee venom (honey bee)] Review of Systems ROS Statement: Those systems with pertinent positive or pertinent negative responses have been documented in the HPI. ROS Other: All systems not noted in ROS Statement are negative. 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, ADD, Bipolar History of Any Multi-Drug Resistant Organisms: None Reported Past Surgical History: No Surgical Hx Reported Past Anesthesia/Blood Transfusion Reactions: No Reported Reaction Past Psychological History: ADD/ADHD, Anxiety, Bipolar Smoking Status: Current every day smoker Past Alcohol Use History: None Reported Past Drug Use History: Heroin, Marijuana, Opiates - Past Family History mother Family Medical History: Diabetes Mellitus, Hypertension General Exam - General Exam Comments Initial Comments: GENERAL: The patient is well nourished and well hydrated. VITAL SIGNS: Heart rate, blood pressure, respiratory rate reviewed as recorded in nurse's notes. EYES: Pupils are round and reactive. Extraocular movements are intact. No conjunctival / lid redness or swelling. ENT: No external evidence of injury, swelling, or ecchymosis. Airway is patent. Throat is clear. NECK: Nontender. No swelling or evidence of injury. No subcutaneous emphysema. Trachea is midline. No thyroid mass. HEART: Regular rate and rhythm. Good peripheral pulses. LUNGS/CHEST: Diffuse wheezing is noted to the bilateral chest. No ecchymosis, subcutaneous emphysema, or tenderness. ABDOMEN: Abdomen soft without tenderness. No palpable masses or organomegaly. No peritoneal signs. No abdominal wall swelling or ecchymosis. EXTREMITIES: No extremity tenderness. Normal muscle tone and function. No thoracolumbar tenderness. NEUROLOGIC: Sensation is grossly intact. Cranial nerve exam reveals face is symmetrical, tongue is midline, speech is clear. SKIN: No abrasions or ecchymosis is noted. No induration or masses noted. PSYCHIATRIC: Alert and oriented. Appropriate behavior and judgment. Limitations: no limitations Course Vital Signs 09/02/17 10:55 Temperature 100.8 F H Pulse Rate 102 H Respiratory 24 Rate Blood Pressure 121/56 O2 Sat by Pulse 88 L Oximetry Medical Decision Making - Medical Decision Making The patient is seen and examined. All diagnostics are reviewed. He does have an EKG which shows a sinus tachycardia at a heart rate of 108. There is no acute ST-T wave changes identified. The AR intervals 194, QRS duration is 90, and the QTC intervals 439. He receives a double DuoNeb breathing treatment as well as Solu-Medrol intravenously. He does have a fever of 100.8 and receives some Tylenol as well as some Toradol. IV Levaquin is initiated. The x-ray shows a reticular nodular pattern suspicious for pneumonia per radiology. The white blood cell count is slightly elevated. It is felt as though he would require admission to the hospital for further treatment. He is very bronchospastic and does receive another DuoNeb breathing treatment. His oxygenation on recheck is approximately 91% on 4 L. Approximately 30 minutes of critical care time is utilized and treatment of the patient. The case is discussed with Dr. Jennings and he is agreeable with admission. - Lab Data Result diagrams: 09/02/17 11:25 09/02/17 11:25 Lab Results 09/02/17 09/02/17 09/02/17 Range/Units 11:25 11:25 11:25 WBC 14.4 H (3.8-10.6) k/uL RBC 4.85 (4.30-5.90) m/uL Hgb 14.2 (13.0-17.5) gm/dL Hct 43.9 (39.0-53.0) % MCV 90.5 (80.0-100.0) fL MCH 29.4 (25.0-35.0) pg MCHC 32.5 (31.0-37.0) g/dL RDW 13.3 (11.5-15.5) % Plt Count 265 (150-450) k/uL Neutrophils % 83 % Lymphocytes % 7 % Monocytes % 6 % Eosinophils % 2 % Basophils % 0 % Neutrophils # 12.0 H (1.3-7.7) k/uL Lymphocytes # 1.1 (1.0-4.8) k/uL Monocytes # 0.9 (0-1.0) k/uL Eosinophils # 0.2 (0-0.7) k/uL Basophils # 0.0 (0-0.2) k/uL PT (9.0-12.0) sec INR (<1.2) APTT (22.0-30.0) sec Sodium 139 (137-145) mmol/L Potassium 4.5 (3.5-5.1) mmol/L Chloride 98 (98-107) mmol/L Carbon Dioxide 26 (22-30) mmol/L Anion Gap 15 mmol/L BUN 18 (9-20) mg/dL Creatinine 1.17 (0.66-1.25) mg/dL Est GFR (CKD-EPI)AfAm >90 (>60 ml/min/1.73 sqM) Est GFR (CKD-EPI)NonAf 78 (>60 ml/min/1.73 sqM) Glucose 126 H (74-99) mg/dL Calcium 9.3 (8.4-10.2) mg/dL Total Bilirubin 1.9 H (0.2-1.3) mg/dL AST 19 (17-59) U/L ALT 16 L (21-72) U/L Alkaline Phosphatase 69 (38-126) U/L Total Creatine Kinase 75 (55-170) U/L CK-MB (CK-2) 0.5 (0.0-2.4) ng/mL CK-MB (CK-2) Rel Index 0.7 Total Protein 6.9 (6.3-8.2) g/dL Albumin 4.1 (3.5-5.0) g/dL Serum Alcohol mg/dL 09/02/17 09/02/17 Range/Units 11:25 11:25 WBC (3.8-10.6) k/uL RBC (4.30-5.90) m/uL Hgb (13.0-17.5) gm/dL Hct (39.0-53.0) % MCV (80.0-100.0) fL MCH (25.0-35.0) pg MCHC (31.0-37.0) g/dL RDW (11.5-15.5) % Plt Count (150-450) k/uL Neutrophils % % Lymphocytes % % Monocytes % % Eosinophils % % Basophils % % Neutrophils # (1.3-7.7) k/uL Lymphocytes # (1.0-4.8) k/uL Monocytes # (0-1.0) k/uL Eosinophils # (0-0.7) k/uL Basophils # (0-0.2) k/uL PT 11.8 (9.0-12.0) sec INR 1.2 H (<1.2) APTT 27.5 (22.0-30.0) sec Sodium (137-145) mmol/L Potassium (3.5-5.1) mmol/L Chloride (98-107) mmol/L Carbon Dioxide (22-30) mmol/L Anion Gap mmol/L BUN (9-20) mg/dL Creatinine (0.66-1.25) mg/dL Est GFR (CKD-EPI)AfAm (>60 ml/min/1.73 sqM) Est GFR (CKD-EPI)NonAf (>60 ml/min/1.73 sqM) Glucose (74-99) mg/dL Calcium (8.4-10.2) mg/dL Total Bilirubin (0.2-1.3) mg/dL AST (17-59) U/L ALT (21-72) U/L Alkaline Phosphatase (38-126) U/L Total Creatine Kinase (55-170) U/L CK-MB (CK-2) (0.0-2.4) ng/mL CK-MB (CK-2) Rel Index Total Protein (6.3-8.2) g/dL Albumin (3.5-5.0) g/dL Serum Alcohol <10 mg/dL Disposition Clinical Impression: Asthma attack, Fever, Acute respiratory failure, Bronchospasm, Hypoxia, Chronic pain, Sinus tachycardia, Pneumonia Disposition: ADMITTED IP TO THIS [facility] Condition: Fair Is patient prescribed a controlled substance at d/c from ED?: No Referrals: [facility] [Primary Care Provider] - 1-2 days Time of Disposition: 12:50 Decision Date: 09/02/17 Decision Time: 12:50
[2017-09-02 11:42] LABS: Basophils % (A) 0 %; Eosinophils # (A) 0.2 k/uL (0-0.7); Eosinophils % (A) 2 %; HCT 43.9 % (39.0-53.0); HGB 14.2 gm/dL (13.0-17.5); Lymphocytes # (A) 1.1 k/uL (1.0-4.8); Lymphocytes % (A) 7 %; MCH 29.4 pg (25.0-35.0); MCHC 32.5 g/dL (31.0-37.0); MCV 90.5 fL (80.0-100.0); Mean Platelet Volume 7.5; Monocytes # (A) 0.9 k/uL (0-1.0); Monocytes % (A) 6 %; Neutrophils % (A) 83 %; Platelet Count 265 k/uL (150-450); RBC 4.85 m/uL (4.30-5.90); RDW 13.3 % (11.5-15.5); WBC 14.4 k/uL (3.8-10.6)
[2017-09-02 11:52] LABS: INR 1.2 (<1.2); Partial Thromboplastin Time 27.5 sec (22.0-30.0); Prothrombin Time 11.8 sec (9.0-12.0)
[2017-09-02 11:59] LABS: ALT 16 U/L (21-72); AST 19 U/L (17-59); Albumin 4.1 g/dL (3.5-5.0); Alkaline Phosphatase 69 U/L (38-126); Anion Gap 15 mmol/L; Blood Urea Nitrogen 18 mg/dL (9-20); Calcium 9.3 mg/dL (8.4-10.2); Carbon Dioxide 26 mmol/L (22-30); Chloride 98 mmol/L (98-107); Glucose 126 mg/dL (74-99); Potassium 4.5 mmol/L (3.5-5.1); Sodium 139 mmol/L (137-145); Total Bilirubin 1.9 mg/dL (0.2-1.3); Total Protein 6.9 g/dL (6.3-8.2)
--- NOTE | 2017-09-02 12:08 | XR ---
EXAMINATION TYPE: XR chest 2V DATE OF EXAM: 09/02/2017 CLINICAL HISTORY: Difficulty breathing TECHNIQUE: Frontal and lateral views of the chest are obtained. COMPARISON: May 13, 2017 FINDINGS: Nonspecific reticulonodular prominence may reflect underlying infiltrate. Correlate clinica lly and consider progress studies. No evidence for focal consolidation. The cardiac silhouette size i s within normal limits. The osseous structures are intact. IMPRESSION: Nonspecific reticulonodular prominence may reflect underlying infiltrate. Correlate clin ically and consider progress studies.
[2017-09-02 12:32] LABS: Creatine Kinase MB 0.5 ng/mL (0.0-2.4)
[2017-09-02] MEDS ORDERED: PNEUMONIA PROTOCOL UTILIZED 1 EACH MISC PO PRN (12:51)
[2017-09-02] MEDS ORDERED: LIDOCAINE 3% TOPICAL PRN (12:53)
[2017-09-02] MEDS ORDERED: ONDANSETRON ODT 4 MG TAB PO PRN (12:53)
[2017-09-02] MEDS ORDERED: ACETAMINOPHEN TAB 500 MG TAB PO PRN (12:54)
[2017-09-02] MEDS ORDERED: IBUPROFEN 400 MG TAB PO PRN (12:54)
[2017-09-02] MEDS: HYDROcodone/APAP 10-325MG 1 EACH TAB PO PRN ×2 (14:17→20:50)
[2017-09-02] MEDS: BACLOFEN 10 MG TAB PO PRN ×2 (14:18→22:51)
[2017-09-02] MEDS: GABAPENTIN 300 MG CAP PO PRN ×2 (14:18→22:51)
[2017-09-02 15:08] LABS: Amphetamine Screen,Urine Not Detected (NotDetected); Barbiturate Screen,Urine Not Detected (NotDetected); Benzodiazepines Screen,Urine Not Detected (NotDetected); Cocaine Screen,Urine Not Detected (NotDetected); Methadone Screen, Urine Not Detected (NotDetected); Opiate Screen,Urine Detected (NotDetected); Oxycodone Screen, Urine Detected (NotDetected); Phencyclidine Screen,Urine Not Detected (NotDetected); Tricyclic Antidepressant,Urine Not Detected (NotDetected); Urn Cannabinoid Scrn Detected (NotDetected)
[2017-09-02 15:18] VITALS: BMI 24.9
[2017-09-02] MEDS: IPRATROPIUM-ALBUTEROL 3 ML NEB INHALATION PRN ×2 (16:21→20:04)
[2017-09-02] MEDS: QUEtiapine 50 MG TAB PO SCH (20:50)
[2017-09-03] MEDS ORDERED: PANTOPRAZOLE 40 MG TABLET PO SCH (07:30)
[2017-09-03] MEDS: IPRATROPIUM-ALBUTEROL 3 ML NEB INHALATION PRN (07:35)
[2017-09-03] MEDS: QUEtiapine 50 MG TAB PO SCH (07:52)
[2017-09-03] MEDS: HYDROcodone/APAP 10-325MG 1 EACH TAB PO PRN (07:53)
[2017-09-03] MEDS: BACLOFEN 10 MG TAB PO PRN (08:05)
[2017-09-03] MEDS ORDERED: LEVOFLOXACIN 750MG-D5W PMX 750 MG in DEXTROSE/WATER 1 150ML.BAG IVPB SCH (09:00)
[2017-09-03] MEDS ORDERED: ERGOCALCIFEROL 50,000 UNIT CAP PO SCH (09:00)
[2017-09-03] MEDS ORDERED: ENOXAPARIN 40 MG/0.4 ML SYRINGE SQ SCH (09:00)
[2017-09-03] MEDS ORDERED: methylPREDNISolone SOD SUCCI 125 MG/2 ML VIAL IV STA (09:12)
[2017-09-03] MEDS ORDERED: HALOPERIDOL LACTATE 5 MG/ML 1 ML VIAL IM PRN (09:36)
[2017-09-03] MEDS: cloNIDine HCL 0.2 MG TAB PO SCH ×2 (09:55→13:04)
[2017-09-03] MEDS ORDERED: METHADONE 5 MG TAB PO PRN (09:56)
[2017-09-03] MEDS ORDERED: METHADONE 10 MG TAB PO STA (09:56)
[2017-09-03] MEDS: LORazepam 2 MG/ML INJ IV PRN ×2 (09:56→15:31)
[2017-09-03] MEDS ORDERED: guaiFENesin 600 MG TABLET.ER PO SCH (10:00)
--- NOTE | 2017-09-03 10:14 | P.CNPUL ---
History of Present Illness Consult date: 09/03/17 Requesting physician: Jadon Jennings Reason for consult: asthma, COPD, pneumonia Chief complaint: shortness of breath History of present illness: This is a 37-year-old male patient being seen examined and evaluated today for consultation. This patient presented to the emergency room yesterday with progressive shortness of breath and dyspnea that had been lasting over the last 2-4 days. He has had a productive cough with yellow sputum and was running fevers at home as well. Patient states he does smoke 2 packs per day for over 30 years. He states that he has had a diagnosis of asthma in the past however has never been on any maintenance medication for this. Chest x-ray was reviewed and does show a nonspecific reticular nodule underlying infiltrate, does have a white count of 14.4, lactic acid is normal at 1.6.. Of note the patient does have chronic pain syndrome with herniated disc in his back and is quite dependent on opiates. The patient did have a refill of his snoring goes 10/325 of 90 pills last week and is out. Patient states that he knows that he has an opiate addiction and when he runs out of his pills he buys them on the streets and was unable to get pain pills and will resort to snorting drugs and uses heroin. The patient is shaky and appears on average. He gets agitated easily. States he feels like he is detoxing, and wants help with his opiate addiction. Urine drug screen was positive for opiates oxycodone and marijuana. Upon examination the patient is agitated, short of breath is refusing to put on his oxygen at this time. Education in regards to his oxygen desaturations has been provided. Currently we are awaiting a psych consult. Review of Systems 14 point review of systems was completed and is negative unless noted in the HPI. Past Medical History Past Medical History: Asthma, COPD, Pneumonia Additional Past Medical History / Comment(s): HERNIATED DISC IN BACK, CHRONIC PAIN History of Any Multi-Drug Resistant Organisms: None Reported Past Surgical History: No Surgical Hx Reported Additional Past Surgical History / Comment(s): SURGERY ON URETHRAL OPENING A CHILD Past Anesthesia/Blood Transfusion Reactions: No Reported Reaction Smoking Status: Current every day smoker - Past Family History Father History Unknown: Yes mother Family Medical History: Diabetes Mellitus, Hypertension Medications and Allergies Home Medications Medication Instructions Recorded Confirmed Type Gabapentin [Neurontin] 600 mg PO BID PRN 05/25/16 09/02/17 History Baclofen [Lioresal] 10 mg PO BID PRN 06/12/16 09/02/17 History Ondansetron Odt [Zofran ODT] 4 mg PO Q12HR PRN 05/13/17 09/02/17 History QUEtiapine FUMARATE [SEROquel XR] 150 mg PO HS 05/13/17 09/02/17 History Ergocalciferol (Vitamin D2) 50,000 unit PO Q7D 09/02/17 09/02/17 History [Vitamin D2] HYDROcodone/APAP 10-325MG [[place] 1 tab PO TID PRN 09/02/17 09/02/17 History 10-325] Lidocaine 3% Cream 1 applic TOPICAL TID PRN 09/02/17 09/02/17 History Omeprazole [PriLOSEC] 20 mg PO AC-BID 09/02/17 09/02/17 History Allergies Allergy/AdvReac Type Severity Reaction Status Date / Time methylphenidate HCl Allergy Rash/Hives Verified 09/02/17 11:16 [From Ritalin] venom-honey bee Allergy Rash/Hives Verified 09/02/17 11:16 [bee venom (honey bee)] Physical Exam Vitals: Vital Signs Temp Pulse Pulse Resp BP BP Pulse Ox 09/03/17 07:58 88 09/03/17 07:35 88 09/03/17 07:00 97.5 F L 80 20 130/77 96 09/02/17 22:40 98.5 F 98 16 106/61 90 L 09/02/17 20:17 84 18 09/02/17 20:04 79 18 09/02/17 16:33 90 09/02/17 16:22 89 09/02/17 15:20 20 09/02/17 14:57 99.6 F 90 16 104/69 97 09/02/17 13:15 89 20 104/60 95 09/02/17 10:55 100.8 F H 102 H 24 121/56 88 L Intake and Output 09/02/17 09/03/17 09/03/17 22:59 06:59 14:59 Other: # Voids 1 1 # Bowel Movements 1 Weight 85.729 kg GENERAL EXAM: Alert, agitated HEAD: Normocephalic. EYES: Normal reaction of pupils, equal size. NOSE: Clear with pink turbinates. THROAT: No erythema or exudates. NECK: No masses, no JVD. CHEST: No chest wall deformity. LUNGS: Lungs noted to be coarse and rhonchorous throughout with scattered expiratory wheezing as well. CVS: S1 and S2 normal with no audible mumurs, regular rhythm. ABDOMEN: No hepatosplenomegaly, normal bowel sounds, no guarding or rigidity. EXTREMITIES: No edema noted, pedal pulses palpable. CENTRAL NERVOUS SYSTEM: No focal deficits, tone is normal in all 4 extremities, mild withdrawal tremors noted. Results - Laboratory Findings CBC and BMP: 09/02/17 11:25 09/02/17 11:25 PT/INR, D-dimer PT 11.8 sec (9.0-12.0) 09/02/17 11:25 INR 1.2 (<1.2) H 09/02/17 11:25 D-Dimer 0.41 mg/L FEU (<0.60) 09/02/17 17:51 Abnormal lab findings: Abnormal Labs 09/02/17 09/02/17 09/02/17 11:25 11:25 11:25 WBC 14.4 H Neutrophils # 12.0 H INR 1.2 H Glucose 126 H Total Bilirubin 1.9 H ALT 16 L Urine Opiates Screen Ur Oxycodone Screen U Marijuana (THC) Screen 09/02/17 14:43 WBC Neutrophils # INR Glucose Total Bilirubin ALT Urine Opiates Screen Detected H Ur Oxycodone Screen Detected H U Marijuana (THC) Screen Detected H - Diagnostic Findings Chest x-ray: report reviewed, image reviewed Assessment and Plan Assessment: Assessment Sepsis Community acquired pneumonia Possible pulmonary inflammatory reaction related to inhaled drugs Acute hypoxic respiratory failure requiring supplemental oxygen Opiate addiction with acute withdrawal Acute psychosis related to withdrawal's Nicotine addiction Acute exacerbation of COPD History of asthma, unknown type and baseline, with acute exacerbation Plan Medications have been reviewed and will be continued as ordered. Patient will be put on methadone for opiate withdrawal's as well as when necessary Ativan and Haldol. Also will initiate clonidine scheduled. Social work and psych on consult. Obtain sputum culture. CT of the chest without contrast. Continue IV steroids and antibiotics. Add Mucinex and Singulair. Continue with pulmonary hygiene, coughing and deep breathing exercises, and supportive care. Supplemental oxygen to maintain oxygen saturations of 92% or better. Continue nebulizer treatments. GI and DVT prophylaxis. We will continue to monitor labs/ results and adjust treatment as necessary. Further recommendations pending. I performed an examination of the patient and discussed their management with the nurse practitioner. I have reviewed the nurse practitioner's note and agree with the documented findings and plan of care.
[2017-09-03] MEDS ORDERED: NICOTINE 14MG/24HR PATCH TRANSDERM SCH (10:30)
--- NOTE | 2017-09-03 10:44 | XR ---
EXAMINATION TYPE: XR chest 2V DATE OF EXAM: 09/03/2017 COMPARISON: 09/02/2017 HISTORY: Cough, difficulty breathing, and possible pneumonia. TECHNIQUE: Frontal and lateral views of the chest are obtained. FINDINGS: There is diffuse interstitial prominence as seen on the prior exam without focal consolida tion. There is no pulmonary vascular congestion, pleural effusion, or pneumothorax seen. The cardiac silhouette size is within normal limits. The osseous structures are intact. IMPRESSION: Redemonstration of diffuse interstitial prominence without focal consolidation that may represent an atypical pneumonia, pneumonitis, or bronchitis. Fluid overload is a less likely consider ation.
--- NOTE | 2017-09-03 10:52 | CT ---
EXAMINATION TYPE: CT chest wo con DATE OF EXAM: 09/03/2017 COMPARISON: Chest radiographs dated 09/03 and 09/02/2017. CT thorax dated 10/03/2009. HISTORY: Cough and shortness of breath CT DLP: 247.5 mGycm. Automated Exposure Control for Dose Reduction was Utilized. TECHNIQUE: CT scan of the thorax is performed without IV contrast. FINDINGS: LUNGS: There are scattered groundglass and reticular nodular opacities throughout the lungs predomina ting within the anterior right upper lobe, right middle lobe, and lingula. More nodular areas are anjali ngated along the medial right middle lobe and medial inferior right upper lobe thought to represent d istal bronchial mucus plugging. No pleural effusion or pneumothorax is seen. MEDIASTINUM: Lack of IV contrast is noted to limit evaluation for mediastinal and especially hilar ad enopathy. There are no definitive greater than 1 cm hilar or mediastinal lymph nodes. There is promin ence of the ascending thoracic aorta measuring 3.7 cm on series 6 image 28 without aneurysmal dilatat ion. No cardiomegaly or pericardial effusion is seen. OTHER: Bilateral symmetric mild retroareolar gynecomastia is incidentally identified. Minimal multile rupesh degenerative changes of the thoracic spine are seen. IMPRESSION: Multifocal groundglass and reticular nodular opacities with few areas of distal bronchial mucus plugging. Findings can be seen in atypical pneumonia or bronchitis with inflammatory pneumonit is.
[2017-09-03] MEDS ORDERED: ALBUTEROL NEBULIZED 2.5 MG/3 ML INHALATION PRN (10:57)
[2017-09-03] MEDS ORDERED: HYDROcodone/APAP 10-325MG 1 EACH TAB PO PRN (10:57)
[2017-09-03] MEDS ORDERED: DOCUSATE 100 MG CAP PO PRN (10:57)
[2017-09-03] MEDS ORDERED: PROCHLORPERAZINE 5 MG TAB PO PRN (10:57)
[2017-09-03] MEDS ORDERED: MELATONIN 5 MG TABLET PO PRN (10:57)
[2017-09-03] MEDS ORDERED: BENZONATATE 100 MG CAP PO PRN (10:58)
[2017-09-03] MEDS ORDERED: methylPREDNISolone SOD SUCCI 125 MG/2 ML VIAL IV SCH (12:00)
[2017-09-03] MEDS: GABAPENTIN 300 MG CAP PO PRN (12:17)
--- NOTE | 2017-09-03 12:21 | P.CN ---
Psychiatric Consult - . Consult date: 09/03/17 Consult:: 09/03/17 12:05 Patient was seen for a psych consult regarding past SI, mental health history, substance abuse. Patient was admitted for pneumonia and is being treated for it now. Patient is on baclofen 10 mg twice a day when necessary, Neurontin 600 mg twice a day when necessary, hydrocodone 10-325 every 6 hours when necessary, Ativan 1 mg IV every hour when necessary, Haldol 5 mg IM every 6 hours when necessary, Seroquel 75 mg twice a day and clonidine 0.2 mg 4 times a day. Patient has an extensive history of antisocial behavior since childhood. He was on juvenile court, in [facility] multiple times for violent behavior and antisocial behavior. He was in [facility] for something similar to attempted murder. He has been taking more than prescribed norcos. Patient insists he is not suicidal and does not like to have a sitter staring at him. He says he wants to be detoxed and sent to a rehab. He says he wants to stop using narcotics. Currently patient talks somewhat loud but is able to provide good information. His speech is spontaneous and goal-directed. Mood is angry. Affect is increased in intensity. He insists that he is not suicidal, will not do anything to hurt himself, his 2 children need him as a father, wants to have a rehab and to lead a better life. He denies hallucinations and delusional thinking. He is well oriented with good memory for recent and remote events. Assessment: opioid use disorder severe. Antisocial personality disorder. Polypharmacy which can be dangerous to his health and is not recommended by medical literature or the FDA. Narcotics are recommended only for up to 7 days except for terminal illness. Muscle relaxants are also recommended only for a few days not on a continuous basis. Combining Seroquel, narcotics, benzodiazepines and muscle relaxants can pose a major threat to life. Suggestion: 1-1 supervision/sitter can be discontinued. Refer to social media marketing specialist for rehab placement. Continue treatment for pneumonia and asthma. Consider detoxing from opiates by tapering of the dose of opiates. Definitely avoid muscle relaxants, Seroquel and benzodiazepines.
--- NOTE | 2017-09-03 12:33 | P.HPIM ---
History of Present Illness H&P Date: 09/03/17 Chief Complaint: pneumonia Patient is a 37-year-old male with a past medical history of asthma, COPD, and chronic back pain who presented to the emergency department via EMS with complaints of difficulty in breathing and wheezing. In the emergency department he underwent an extensive evaluation. On arrival he was found to have a fever of 100.8, pulse of 102, was satting 88% on room air. Laboratory analysis revealed a white blood cell count of 14.4. Urine drug screen was positive for opiates, oxycodone, and marijuana. Chest x-ray is obtained which showed a reticular nodular pattern. He was started on steroids, bronchodilators , Levaquin, and IV fluids. Is admitted to the general medical floor for further monitoring and care. He's been seen by pulmonology who diagnosed him with community-acquired pneumonia with sepsis. They added Mucinex and Singulair. Patient seen and examined at bedside. He is very anxious needed. Initially he does not want to answer any questions because he states there is been to many people in his room he can even Or respond back to phone calls. He only wants to talk with someone from the psychiatry Department. He states he needs methadone or Suboxone. He states that he has been taking [place] monthly for the last 2 years from his pain management clinic. He has been running out of his Charlotte approximately 2 weeks prior to refills. He then has been supplementing with any type of prescription narcotics can find on the street or snorting heroin as he hates needles. He states that if he does not get methadone or Suboxone he will go out use heroin and "end it all". He did repeat this twice during our conversation. He then states he called EMS because he has pneumonia. He states that he began having shortness of breath and wheezing approximately 2 days ago. He has a cough that is productive of yellow sputum. He has difficulty producing his sputum and gets chest pain with coughing. He believes he's had fevers at home but has not taken his temperature. He complains of diaphoresis. He denies any lightheadedness or dizziness. He also states that for the last 2 years he has had difficulty starting his urine stream. He denies any recent nausea, vomiting , diarrhea, or constipation. He has felt fatigued. He also complains of a headache. He is very upset that when he tried to give him Klonopin as this does not treat opiate withdrawal. He states he has been to [facility] twice in the past but was told he could no longer come back due to using profanity on a phone call with them. Once the patient discovered that he had been placed in suicide precautions he became very irritated stating he did not want eyes on him all the time. He states that I misunderstood him and he didn't say that, but that but heroin will make anybody overdose. I explained to him that once the psychiatrist sees him he can be removed from suicide precautions, but that we are making sure that he does not harm himself or other people by leaving the hospital and overdosing. He still got angry, called me a lier, and told me to leave. Review of Systems Positives: cough, shortness of breath, wheeze Pertinent positives and negatives as discussed in HPI, a complete review of systems performed and all other systems are negative. Past Medical History Past Medical History: Asthma, COPD, Pneumonia Additional Past Medical History / Comment(s): HERNIATED DISC IN BACK, CHRONIC PAIN, bipolar disorder, ADD History of Any Multi-Drug Resistant Organisms: None Reported Past Surgical History: No Surgical Hx Reported Additional Past Surgical History / Comment(s): SURGERY ON URETHRAL OPENING A CHILD Past Anesthesia/Blood Transfusion Reactions: No Reported Reaction Smoking Status: Current every day smoker Past Alcohol Use History: None Reported Past Drug Use History: Marijuana Additional Drug Use History / Comment(s): uses prescripation drugs that he buys off the street once he runs out of his [place], when he can't find thoses snorts heroin. - Past Family History Father History Unknown: Yes mother Family Medical History: Diabetes Mellitus, Hypertension Medications and Allergies Home Medications Medication Instructions Recorded Confirmed Type Gabapentin [Neurontin] 600 mg PO BID PRN 05/25/16 09/02/17 History Baclofen [Lioresal] 10 mg PO BID PRN 06/12/16 09/02/17 History Ondansetron Odt [Zofran ODT] 4 mg PO Q12HR PRN 05/13/17 09/02/17 History QUEtiapine FUMARATE [SEROquel XR] 150 mg PO HS 05/13/17 09/02/17 History Ergocalciferol (Vitamin D2) 50,000 unit PO Q7D 09/02/17 09/02/17 History [Vitamin D2] HYDROcodone/APAP 10-325MG [[place] 1 tab PO TID PRN 09/02/17 09/02/17 History 10-325] Lidocaine 3% Cream 1 applic TOPICAL TID PRN 09/02/17 09/02/17 History Omeprazole [PriLOSEC] 20 mg PO AC-BID 09/02/17 09/02/17 History Allergies Allergy/AdvReac Type Severity Reaction Status Date / Time methylphenidate HCl Allergy Rash/Hives Verified 09/02/17 11:16 [From Ritalin] venom-honey bee Allergy Rash/Hives Verified 09/02/17 11:16 [bee venom (honey bee)] Physical Exam Osteopathic Statement: *. No significant issues noted on an osteopathic structural exam other than those noted in the History and Physical/Consult. Vitals: Vital Signs Temp Pulse Pulse Resp BP BP Pulse Ox 09/03/17 07:58 88 09/03/17 07:35 88 09/03/17 07:00 97.5 F L 80 20 130/77 96 09/02/17 22:40 98.5 F 98 16 106/61 90 L 09/02/17 20:17 84 18 09/02/17 20:04 79 18 09/02/17 16:33 90 09/02/17 16:22 89 09/02/17 15:20 20 09/02/17 14:57 99.6 F 90 16 104/69 97 09/02/17 13:15 89 20 104/60 95 09/02/17 10:55 100.8 F H 102 H 24 121/56 88 L Intake and Output 09/02/17 09/03/17 09/03/17 22:59 06:59 14:59 Other: # Voids 1 1 # Bowel Movements 1 Weight 85.729 kg General: non toxic, no distress, appears older than stated age, normal weight Derm: no unusual rashes/lesions no unusual ecchymoses, warm, dry Head: atraumatic, normocephalic, symmetric Eyes: EOMI, no lid lag, anicteric sclera, pupils equal round reactive to light ENT: Nose and ears atraumatic, no thrush, no pharyngeal erythema Neck: No thyromegaly, no cervical lymphadenopathy, trachea midline, supple Mouth: no lip lesion, mucus membranes dry Cardiovascular: S1S2 reg, no murmur, positive posterior tibial pulse bilateral, no edema, capillary refill less than 2 seconds Lungs: Ronchi and wheeze bilateral , no accessory muscle use Abdominal: soft, nontender to palpation, no guarding, no appreciable organomegaly, normal bowel sounds Ext: no gross muscle atrophy, muscle strength 5 out of 5 in all 4 extremities grossly, no contractures, Neuro: CN II-XI grossly intact, light touch intact all 4 extremities, finger to nose within normal limits, Psych: Alert, oriented, angry, flight of ideas, difficulty focusing Results CBC & Chem 7: 09/02/17 11:25 09/02/17 11:25 Labs: Abnormal Lab Results - Last 24 Hours (Table) 09/02/17 09/02/17 09/02/17 Range/Units 11:25 11:25 11:25 WBC 14.4 H (3.8-10.6) k/uL Neutrophils # 12.0 H (1.3-7.7) k/uL INR 1.2 H (<1.2) Glucose 126 H (74-99) mg/dL Total Bilirubin 1.9 H (0.2-1.3) mg/dL ALT 16 L (21-72) U/L Urine Opiates Screen (NotDetected) Ur Oxycodone Screen (NotDetected) U Marijuana (THC) Screen (NotDetected) 09/02/17 Range/Units 14:43 WBC (3.8-10.6) k/uL Neutrophils # (1.3-7.7) k/uL INR (<1.2) Glucose (74-99) mg/dL Total Bilirubin (0.2-1.3) mg/dL ALT (21-72) U/L Urine Opiates Screen Detected H (NotDetected) Ur Oxycodone Screen Detected H (NotDetected) U Marijuana (THC) Screen Detected H (NotDetected) Chest x-ray: report reviewed, image reviewed Thrombosis Risk Factor Assmnt - DVT/VTE Prophylaxis DVT/VTE Prophylaxis: Pharmacologic Prophylaxis ordered - Choose All That Apply Any of the Below Risk Factors Present?: Yes Each Factor Represents 1 point: Serious lung disease incl. pneumonia (< 1month) Other Risk Factors: No Other congenital or acquired thrombophilia - If yes, enter type in comment: No Thrombosis Risk Factor Assessment Total Risk Factor Score: 1 Thrombosis Risk Factor Assessment Level: Low Risk Assessment and Plan Assessment: Community-acquired pneumonia with sepsis -Levaquin -IV fluids completed -Sputum culture -Follow chest x-ray until clear -Bronchodilators -Mucinex -Teskeenan Hawkins Acute exacerbation of asthma -Pulmonary recommendations appreciated -Pulmicort, DuoNeb's, as needed albuterol -Pulmonary hygiene Possible suicidal ideation with hx of bipolar disorder - suicide precautions - Psych eval Opiate dependency -delinquency prevention social worker currently investigating possibility of treatment programs -Patient requesting methadone or Suboxone however I would not want to initiate these medications until we know that he has a place that can continue them upon discharge, It would do no service for the patient's to have one or 2 days worth of methadone and then being unable to obtain it further. -Psychiatry recommendations Tobacco abuse - cessation - patient does not want nicotine patch Surrogate decision-maker: Has a court appointed guardian Stephanie CODE STATUS:Full by default DVT prophylaxis: Lovenox Discussed with: Patient, nursing, psychiatry Anticipated discharge: 48-[address]: undetermined A total of 65 minutes was spent on the care of this complex patient more than 50 % of the time was spent in counseling and care coordination.
[2017-09-03] MEDS ORDERED: IPRATROPIUM-ALBUTEROL 3 ML NEB INHALATION SCH (13:00)
[2017-09-03 16:09] VITALS: BP 122/90; RESP 21; TEMP 98.1
[2017-09-03 16:19] VITALS: PULSE 121
[2017-09-03] MEDS ORDERED: HYDROcodone/APAP 10-325MG 1 EACH TAB PO ONE (16:45)
--- NOTE | 2017-09-03 17:51 | P.DS ---
Providers Date of admission: 09/02/17 12:50 Expected date of discharge: 09/03/17 Attending physician: Rakesh Camarillo MD Consults: 09/02/17 17:39 Consult Physician Routine Consulting Provider: Caroline Grover Consult Reason/Comments: dyspnea Do you want consulting provider notified?: Yes 09/03/17 09:32 Consult Physician Routine Consulting Provider: Lizette Kinney Consult Reason/Comments: Past SI, Mental Health hx, Substance abuce Do you want consulting provider notified?: Yes Primary care physician: [facility] Diagnosis(es) (1) Left against medical advice Current Visit: Yes Status: Acute (2) Community acquired pneumonia Current Visit: Yes Status: Acute (3) Sepsis Current Visit: Yes Status: Acute (4) Asthma exacerbation Current Visit: Yes Status: Acute (5) Opiate dependence Current Visit: Yes Status: Acute (6) Tobacco abuse Current Visit: Yes Status: Acute Hospital Course: Patient is a 37-year-old male with a past medical history of asthma, COPD, antisocial personality disorder and chronic back pain who presented to the emergency department via EMS with complaints of difficulty in breathing and wheezing. In the emergency department he underwent an extensive evaluation. On arrival he was found to have a fever of 100.8, pulse of 102, was satting 88% on room air. Laboratory analysis revealed a white blood cell count of 14.4. Urine drug screen was positive for opiates, oxycodone, and marijuana. Chest x- ray was obtained which showed a reticular nodular pattern. He was started on steroids, bronchodilators, Levaquin, and IV fluids. He was admitted to the general medical floor for further monitoring and care. He's been seen by pulmonology who diagnosed him with community-acquired pneumonia with sepsis. They added Mucinex and Singulair. He had made threats overdosing with heroin if he did not get placed on methadone. He was seen by psychiatry who recommend detoxing from opiates and that he did not need suicide precuations. The nurse did have to call security multiple time due to his aggressive behaviors. He wanted to get drug rehab and social work was attempting to help him. Later in the day he decided that his breathing was better and he wanted to leave and go to [facility]. He was told multiple times that we have not yet had a chance to set up everything for nathalia vázquez and that he needs to be medically cleared prior to this. He was getting upset and agitated with staff, threatening to rip his IV out, and not maintaining personal boundaries. We contacted his legal guardian Stephanie ( I personally spoke with her over the phone) who stated that he could leave against medical advice as his behaviors will only escalate and he is refusing medications here so we are unable to help him currently. He had also become obsessed with his friend named Kriss. We discussed this with psychiatry and his nurse did call Kriss at 505pm and inform her of his intents to see her and that he left against medical advice. I discussed with him again that he should stay and receive treatment for his PNA and that we can try to get him to [facility]. He refused stating he was better and he could breath. I did prescribe him Levaquin, prednisone, albuterol, and dulera. He states that he is out of norco and will go through withdrawal if he is not prescribed something and will use heroin. I do think this would be owrse for the patient than prescription narcotics. However, the patient is also a risk of overdose due him using his norco 2 weeks early. I did give him Ultram 50 mg 5 tablets to prevent withdrawal until he can see his pain specialist. Patient left against medical advice. I informed him that his breathing and infection could get worse and could lead to if untreated. He understood and states that he will come back to the hospital if breathing is worsened. [place] prescription index was run and patient has only been getting narcotics from his pain management practice and only once monthly. A total of 90 minutes was spent preparing this complex discharge summary and taking care of the patient. Patient Condition at Discharge: Fair Plan - Discharge Summary Discharge Rx Participant: No New Discharge Prescriptions: New RX: Albuterol Inhaler [Ventolin Hfa Inhaler] 1 - 2 puff INHALATION Q6HR PRN # 1 inhaler PRN Reason: Shortness Of Breath RX: guaiFENesin [Mucinex] 1,200 mg PO Q12HR #60 tablet.er RX: Levofloxacin [Levaquin] 750 mg PO DAILY #5 tab Mometasone/Formoterol [Dulera 100 Mcg/5 Mcg Inhaler] 2 puff INHALATION BID # 1 inhaler RX: Montelukast [Singulair] 10 mg PO HS #30 tab RX: predniSONE 40 mg PO DAILY #10 tab traMADol HCl [Ultram] 50 mg PO Q4H PRN #5 tab PRN Reason: Pain Continue RX: Gabapentin [Neurontin] 600 mg PO BID PRN PRN Reason: Pain RX: Baclofen [Lioresal] 10 mg PO BID PRN PRN Reason: Muscle Spasm RX: QUEtiapine FUMARATE [SEROquel XR] 150 mg PO HS RX: Omeprazole [PriLOSEC] 20 mg PO AC-BID Lidocaine 3% Cream 1 applic TOPICAL TID PRN PRN Reason: Pain RX: Ergocalciferol (Vitamin D2) [Vitamin D2] 50,000 unit PO Q7D Discontinued RX: Ondansetron Odt [Zofran ODT] 4 mg PO Q12HR PRN PRN Reason: Nausea And Vomiting RX: HYDROcodone/APAP 10-325MG [[place] 10-325] 1 tab PO TID PRN PRN Reason: Pain Discharge Medication List RX: Gabapentin [Neurontin] 600 mg PO BID PRN 05/25/16 [History] RX: Baclofen [Lioresal] 10 mg PO BID PRN 06/12/16 [History] RX: QUEtiapine FUMARATE [SEROquel XR] 150 mg PO HS 05/13/17 [History] Lidocaine 3% Cream 1 applic TOPICAL TID PRN 09/02/17 [History] RX: Ergocalciferol (Vitamin D2) [Vitamin D2] 50,000 unit PO Q7D 09/02/17 [ History] RX: Omeprazole [PriLOSEC] 20 mg PO AC-BID 09/02/17 [History] Mometasone/Formoterol [Dulera 100 Mcg/5 Mcg Inhaler] 2 puff INHALATION BID #1 inhaler 09/03/17 [Rx] RX: Albuterol Inhaler [Ventolin Hfa Inhaler] 1 - 2 puff INHALATION Q6HR PRN #1 inhaler 09/03/17 [Rx] RX: Levofloxacin [Levaquin] 750 mg PO DAILY #5 tab 09/03/17 [Rx] RX: Montelukast [Singulair] 10 mg PO HS #30 tab 09/03/17 [Rx] RX: guaiFENesin [Mucinex] 1,200 mg PO Q12HR #60 tablet.er 09/03/17 [Rx] RX: predniSONE 40 mg PO DAILY #10 tab 09/03/17 [Rx] traMADol HCl [Ultram] 50 mg PO Q4H PRN #5 tab 09/03/17 [Rx] Follow up Appointment(s)/Referral(s): Caroline Grover DO [Doctor of Osteopathic Medicine] - 1 Week [facility] [Primary Care Provider] - 1-2 days Patient Instructions/Handouts: Narcotic Abuse (GEN), Community Acquired Pneumonia (GEN) Discharge Disposition: Left Against Medical Advice
[2017-09-03] MEDS ORDERED: BUDESONIDE 0.5 MG/2 ML NEBU INHALATION SCH (20:00)
[2017-09-03] MEDS ORDERED: MONTELUKAST 10 MG TAB PO SCH (21:00)
[2017-09-04] MEDS ORDERED: LEVOFLOXACIN 750 MG TAB PO SCH (09:00)
== END 2017-09-03 17:12 | disposition left against medical advice (07) | DRG 871 ==
LOC: EC 10:50 → 4MS4W 12:50
PROVIDERS: ADMIT Family Medicine; ATTEND Family Medicine
DX: A41.9 Sepsis, unspecified organism (principal); J18.9 Pneumonia, unspecified organism; J44.0 Chronic obstructive pulmonary disease with (acute) lower respiratory infection; J45.901 Unspecified asthma with (acute) exacerbation; F11.20 Opioid dependence, uncomplicated; J44.1 Chronic obstructive pulmonary disease with (acute) exacerbation; F31.9 Bipolar disorder, unspecified; G89.4 Chronic pain syndrome; F17.210 Nicotine dependence, cigarettes, uncomplicated; F60.2 Antisocial personality disorder; Z82.49 Family history of ischemic heart disease and other diseases of the circulatory system; Z83.3 Family history of diabetes mellitus; Z79.899 Other long term (current) drug therapy; Z88.8 Allergy status to other drugs, medicaments and biological substances; Z91.030 Bee allergy status
CPT/HCPCS: 36415; 71046; 71250; 80053; 80306; 80320; 82550; 82553; 83605; 85025; 85379; 85610; 85730; 87040; 87070; 87205; 93005; 94640; 96361; 96374; 96375; 99285

== ENCOUNTER 2017-09-10 23:36 | Emergency (ER) | payer OTHER ==
[2017-09-11] MEDS ORDERED: SODIUM CHLORIDE 0.9% 1,000 ML IV STA (00:03)
--- NOTE | 2017-09-11 00:07 | ED ---
General Adult HPI - General Chief complaint: Fall Stated complaint: FALL Time Seen by Provider: 09/10/17 23:49 Source: patient, RN notes reviewed, old records reviewed Mode of arrival: EMS Limitations: no limitations - History of Present Illness Initial comments: Patient 37-year-old male presented to the emergency room today by EMS, with chief complaint of a fall. Patient does admit that she ran out of his pain medication of Foster 10. He states that he took 12 Neurontin to try to help with his chronic pain. He states that he's been dizzy since taking these. He states he fell hitting the left side of his ribs against a dresser. Patient denies any head injury or loss of consciousness. He doesn't pain locally to the left ribs. Patient states she did not take these medications and any attempt to hurt himself. He denies any suicidal, homicidal thoughts or plans. Patient denies any other complaints or symptoms currently. Patient denies any recent fever, chills, abdominal pain, nausea or vomiting, numbness or tingling, dysuria or hematuria, constipation or diarrhea, headaches or visual changes, or any other complaints. - Related Data Home Medications Medication Instructions Recorded Confirmed Gabapentin [Neurontin] 600 mg PO BID PRN 05/25/16 09/02/17 Baclofen [Lioresal] 10 mg PO BID PRN 06/12/16 09/02/17 QUEtiapine FUMARATE [SEROquel XR] 150 mg PO HS 05/13/17 09/02/17 Ergocalciferol (Vitamin D2) 50,000 unit PO Q7D 09/02/17 09/02/17 [Vitamin D2] Lidocaine 3% Cream 1 applic TOPICAL TID PRN 09/02/17 09/02/17 Omeprazole [PriLOSEC] 20 mg PO AC-BID 09/02/17 09/02/17 Previous Rx's Medication Instructions Recorded Albuterol Inhaler [Ventolin Hfa 1 - 2 puff INHALATION Q6HR PRN #1 09/03/17 Inhaler] inhaler Levofloxacin [Levaquin] 750 mg PO DAILY #5 tab 09/03/17 Mometasone/Formoterol [Dulera 100 2 puff INHALATION BID #1 inhaler 09/03/17 Mcg/5 Mcg Inhaler] Montelukast [Singulair] 10 mg PO HS #30 tab 09/03/17 guaiFENesin [Mucinex] 1,200 mg PO Q12HR #60 tablet.er 09/03/17 predniSONE 40 mg PO DAILY #10 tab 09/03/17 traMADol HCl [Ultram] 50 mg PO Q4H PRN #5 tab 09/03/17 Azithromycin [Zithromax Z-pack] 0 mg PO DIRECTED #6 tab 09/11/17 Allergies Allergy/AdvReac Type Severity Reaction Status Date / Time methylphenidate HCl Allergy Rash/Hives Verified 09/10/17 23:48 [From Ritalin] venom-honey bee Allergy Rash/Hives Verified 09/10/17 23:48 [bee venom (honey bee)] Review of Systems ROS Statement: Those systems with pertinent positive or pertinent negative responses have been documented in the HPI. ROS Other: All systems not noted in ROS Statement are negative. Past Medical History Past Medical History: Asthma, COPD, Pneumonia Additional Past Medical History / Comment(s): HERNIATED DISC IN BACK, CHRONIC PAIN, bipolar disorder, ADD History of Any Multi-Drug Resistant Organisms: None Reported Past Surgical History: No Surgical Hx Reported Additional Past Surgical History / Comment(s): SURGERY ON URETHRAL OPENING A CHILD Past Anesthesia/Blood Transfusion Reactions: No Reported Reaction Past Psychological History: ADD/ADHD, Anxiety, Bipolar Smoking Status: Current every day smoker Past Alcohol Use History: None Reported Past Drug Use History: Marijuana, Prescription Drug Abuse - Past Family History Father History Unknown: Yes mother Family Medical History: Diabetes Mellitus, Hypertension General Exam - General Exam Comments Initial Comments: General: The patient is awake and alert, in no distress, and does not appear acutely ill. Eye: Pupils are equal, round and reactive to light, extra-ocular movements are intact. No nystagmus. There is normal conjunctiva bilaterally. No signs of icterus. Ears, nose, mouth and throat: There are moist mucous membranes and no oral lesions. Neck: The neck is supple, there is no tenderness or JVD. Cardiovascular: There is a regular rate and rhythm. No murmur, rub or gallop is appreciated. Respiratory: Lungs are clear to auscultation, respirations are non-labored, breath sounds are equal. No wheezes, stridor, rales, or rhonchi. Gastrointestinal: Soft, non-distended, non-tender abdomen without masses or organomegaly noted. There is no rebound or guarding present. No CVA tenderness. Musculoskeletal: Normal ROM. No bruising or swelling over the left side of the ribs. Does have tenderness over the left anterior lateral ribs. No step- off or deformity. Strength 5/5. Sensation intact. Pulses equal bilaterally 2+. Neurological: A&O x 3. CN II-XII intact, There are no obvious motor or sensory deficits. Coordination appears grossly intact. Speech is normal. Skin: Skin is warm and dry and no rashes or lesions are noted. Psychiatric: Cooperative, appropriate mood & affect, normal judgment. Limitations: no limitations Course Vital Signs 09/10/17 09/10/17 09/11/17 23:44 23:50 00:42 Temperature 100.5 F H 100.0 F H Pulse Rate 58 L 69 72 Respiratory 22 16 16 Rate Blood Pressure 126/79 126/79 105/64 O2 Sat by Pulse 99 95 95 Oximetry - Reevaluation(s) Reevaluation #1: 09/11/17 00:25 Patient did make mention to nursing staff whether and dry blood that he made comments to his that he was going to take these pills and intention to hurt himself. He states he only due to proof point. He states he has no intentions of committing suicide. He states he would like help with rehab. Patient had breathalyzer test is negative. Patient's labs: Pending of this time. We will contact site for them to come evaluate the patient. EKG Findings - EKG Comments: EKG Findings:: EKG performed which were 2345: Shows sinus rhythm with a first- degree AV block at 78 bpm. KS interval 230. There is 92. QT/QTC 398/453. No acute ST change. Medical Decision Making - Medical Decision Making Patient's labs been reviewed. Patient seen by mental health. They recommend patient does not meet inpatient. Patient is not suicidal. Patient repeatedly asking for pain medications here the emergency room. He has been out of his own prescription does see pain management. Patient x-rays reviewed no evidence for rib fracture. Does show evidence for interstitial pneumonia. Patient will be given dose of Rocephin here in emergency room discharged home continued on antibiotics. He is advised follow-up with his pain management. - Lab Data Result diagrams: 09/11/17 00:10 09/11/17 00:10 Lab Results 09/11/17 09/11/17 09/11/17 Range/Units 00:10 00:10 00:10 WBC 11.0 H (3.8-10.6) k/uL RBC 4.75 (4.30-5.90) m/uL Hgb 13.9 (13.0-17.5) gm/dL Hct 41.2 (39.0-53.0) % MCV 86.8 (80.0-100.0) fL MCH 29.2 (25.0-35.0) pg MCHC 33.6 (31.0-37.0) g/dL RDW 13.4 (11.5-15.5) % Plt Count 336 (150-450) k/uL Neutrophils % 58 % Lymphocytes % 33 % Monocytes % 6 % Eosinophils % 1 % Basophils % 0 % Neutrophils # 6.4 (1.3-7.7) k/uL Lymphocytes # 3.6 (1.0-4.8) k/uL Monocytes # 0.7 (0-1.0) k/uL Eosinophils # 0.1 (0-0.7) k/uL Basophils # 0.0 (0-0.2) k/uL PT 13.0 H (9.0-12.0) sec INR 1.4 H (<1.2) APTT 25.9 (22.0-30.0) sec Sodium 144 (137-145) mmol/L Potassium 3.3 L (3.5-5.1) mmol/L Chloride 109 H (98-107) mmol/L Carbon Dioxide 24 (22-30) mmol/L Anion Gap 11 mmol/L BUN 17 (9-20) mg/dL Creatinine 1.10 (0.66-1.25) mg/dL Est GFR (CKD-EPI)AfAm >90 (>60 ml/min/1.73 sqM) Est GFR (CKD-EPI)NonAf 84 (>60 ml/min/1.73 sqM) Glucose 109 H (74-99) mg/dL Calcium 8.8 (8.4-10.2) mg/dL Total Bilirubin 0.9 (0.2-1.3) mg/dL AST 14 L (17-59) U/L ALT 15 L (21-72) U/L Alkaline Phosphatase 55 (38-126) U/L Creatine Kinase 88 (55-170) U/L Total Protein 5.7 L (6.3-8.2) g/dL Albumin 3.4 L (3.5-5.0) g/dL Urine Color Urine Appearance (Clear) Urine pH (5.0-8.0) Ur Specific [place] (1.001-1.035) Urine Protein (Negative) Urine Glucose (UA) (Negative) Urine Ketones (Negative) Urine Blood (Negative) Urine Nitrite (Negative) Urine Bilirubin (Negative) Urine Urobilinogen (<2.0) mg/dL Ur Leukocyte Esterase (Negative) Salicylates <1.0 mg/dL Urine Opiates Screen (NotDetected) Ur Oxycodone Screen (NotDetected) Urine Methadone Screen (NotDetected) Ur Propoxyphene Screen (NotDetected) Acetaminophen <10.0 ug/mL Ur Barbiturates Screen (NotDetected) U Tricyclic Antidepress (NotDetected) Ur Phencyclidine Scrn (NotDetected) Ur Amphetamines Screen (NotDetected) U Methamphetamines Scrn (NotDetected) U Benzodiazepines Scrn (NotDetected) Urine Cocaine Screen (NotDetected) U Marijuana (THC) Screen (NotDetected) 09/11/17 Range/Units 00:10 WBC (3.8-10.6) k/uL RBC (4.30-5.90) m/uL Hgb (13.0-17.5) gm/dL Hct (39.0-53.0) % MCV (80.0-100.0) fL MCH (25.0-35.0) pg MCHC (31.0-37.0) g/dL RDW (11.5-15.5) % Plt Count (150-450) k/uL Neutrophils % % Lymphocytes % % Monocytes % % Eosinophils % % Basophils % % Neutrophils # (1.3-7.7) k/uL Lymphocytes # (1.0-4.8) k/uL Monocytes # (0-1.0) k/uL Eosinophils # (0-0.7) k/uL Basophils # (0-0.2) k/uL PT (9.0-12.0) sec INR (<1.2) APTT (22.0-30.0) sec Sodium (137-145) mmol/L Potassium (3.5-5.1) mmol/L Chloride (98-107) mmol/L Carbon Dioxide (22-30) mmol/L Anion Gap mmol/L BUN (9-20) mg/dL Creatinine (0.66-1.25) mg/dL Est GFR (CKD-EPI)AfAm (>60 ml/min/1.73 sqM) Est GFR (CKD-EPI)NonAf (>60 ml/min/1.73 sqM) Glucose (74-99) mg/dL Calcium (8.4-10.2) mg/dL Total Bilirubin (0.2-1.3) mg/dL AST (17-59) U/L ALT (21-72) U/L Alkaline Phosphatase (38-126) U/L Creatine Kinase (55-170) U/L Total Protein (6.3-8.2) g/dL Albumin (3.5-5.0) g/dL Urine Color Yellow Urine Appearance Clear (Clear) Urine pH 5.5 (5.0-8.0) Ur Specific [place] 1.024 (1.001-1.035) Urine Protein Trace H (Negative) Urine Glucose (UA) Negative (Negative) Urine Ketones Negative (Negative) Urine Blood Negative (Negative) Urine Nitrite Negative (Negative) Urine Bilirubin Negative (Negative) Urine Urobilinogen 2.0 (<2.0) mg/dL Ur Leukocyte Esterase Negative (Negative) Salicylates mg/dL Urine Opiates Screen Not Detected (NotDetected) Ur Oxycodone Screen Not Detected (NotDetected) Urine Methadone Screen Not Detected (NotDetected) Ur Propoxyphene Screen Not Detected (NotDetected) Acetaminophen ug/mL Ur Barbiturates Screen Not Detected (NotDetected) U Tricyclic Antidepress Not Detected (NotDetected) Ur Phencyclidine Scrn Not Detected (NotDetected) Ur Amphetamines Screen Not Detected (NotDetected) U Methamphetamines Scrn Not Detected (NotDetected) U Benzodiazepines Scrn Not Detected (NotDetected) Urine Cocaine Screen Not Detected (NotDetected) U Marijuana (THC) Screen Detected H (NotDetected) Disposition Clinical Impression: Community acquired pneumonia, Fall, Contusion of rib on left side Disposition: HOME SELF-CARE Condition: Good Instructions: Community Acquired Pneumonia (ED) Additional Instructions: Please use medication as discussed. Please follow-up with family doctor in the next 2 days of symptoms have not improved. Please return to emergency room if the symptoms increase or worsen or for any other concerns. Prescriptions: Azithromycin [Zithromax Z-pack] 0 mg PO DIRECTED #6 tab Is patient prescribed a controlled substance at d/c from ED?: No Referrals: [facility] [Primary Care Provider] - 1-2 days Time of Disposition: 01:41
[2017-09-11 00:33] LABS: Basophils % (A) 0 %; Eosinophils # (A) 0.1 k/uL (0-0.7); Eosinophils % (A) 1 %; HCT 41.2 % (39.0-53.0); HGB 13.9 gm/dL (13.0-17.5); Lymphocytes # (A) 3.6 k/uL (1.0-4.8); Lymphocytes % (A) 33 %; MCH 29.2 pg (25.0-35.0); MCHC 33.6 g/dL (31.0-37.0); MCV 86.8 fL (80.0-100.0); Monocytes # (A) 0.7 k/uL (0-1.0); Monocytes % (A) 6 %; Neutrophils # (A) 6.4 k/uL (1.3-7.7); Neutrophils % (A) 58 %; Platelet Count 336 k/uL (150-450); RBC 4.75 m/uL (4.30-5.90); RDW 13.4 % (11.5-15.5)
[2017-09-11 00:35] LABS: Appearance,Urine Clear (Clear); Bilirubin,Urine Negative (Negative); Blood,Urine Negative (Negative); Color,Urine Yellow; Glucose,Urine (UA) Negative (Negative); Ketones,Urine Negative (Negative); Leukocyte Esterase,Urine Negative (Negative); Nitrite,Urine Negative (Negative); PH, Urine 5.5 (5.0-8.0); Protein,Urine Trace (Negative); Specific Gravity,Urine 1.024 (1.001-1.035)
[2017-09-11 00:44] LABS: INR 1.4 (<1.2); Partial Thromboplastin Time 25.9 sec (22.0-30.0)
[2017-09-11 00:46] LABS: Amphetamine Screen,Urine Not Detected (NotDetected); Barbiturate Screen,Urine Not Detected (NotDetected); Benzodiazepines Screen,Urine Not Detected (NotDetected); Cocaine Screen,Urine Not Detected (NotDetected); Methadone Screen, Urine Not Detected (NotDetected); Opiate Screen,Urine Not Detected (NotDetected); Oxycodone Screen, Urine Not Detected (NotDetected); Phencyclidine Screen,Urine Not Detected (NotDetected); Tricyclic Antidepressant,Urine Not Detected (NotDetected); Urn Cannabinoid Scrn Detected (NotDetected)
[2017-09-11 00:47] LABS: ALT 15 U/L (21-72); AST 14 U/L (17-59); Acetaminophen <10.0 ug/mL; Albumin 3.4 g/dL (3.5-5.0); Alkaline Phosphatase 55 U/L (38-126); Anion Gap 11 mmol/L; Blood Urea Nitrogen 17 mg/dL (9-20); Calcium 8.8 mg/dL (8.4-10.2); Carbon Dioxide 24 mmol/L (22-30); Chloride 109 mmol/L (98-107); Creatine Kinase 88 U/L (55-170); Glucose 109 mg/dL (74-99); Potassium 3.3 mmol/L (3.5-5.1); Salicylate <1.0 mg/dL; Sodium 144 mmol/L (137-145); Total Bilirubin 0.9 mg/dL (0.2-1.3); Total Protein 5.7 g/dL (6.3-8.2)
--- NOTE | 2017-09-11 01:20 | XR ---
EXAMINATION TYPE: XR chest 2V DATE OF EXAM: 09/11/2017 COMPARISON: 09/03/2017 HISTORY: Chest pain TECHNIQUE: Frontal and lateral views of the chest are obtained. FINDINGS: There is coarsening of interstitial pulmonary markings. Heart size is normal. There is no heart failure. There is no pleural effusion. IMPRESSION: Interstitial pulmonary infiltrates. Normal heart. Infiltrates are increased compared to last exam and consistent with nonspecific interstitial pneumonia.
--- NOTE | 2017-09-11 01:22 | XR ---
EXAMINATION TYPE: XR ribs LT DATE OF EXAM: 09/11/2017 COMPARISON: NONE HISTORY: Rib pain TECHNIQUE: 4 views FINDINGS: I see no pleural effusion or pneumothorax. I see no rib fracture. There is coarse interstit ial density in the left lung. IMPRESSION: Mild interstitial pulmonary infiltrate. No rib fracture seen.
[2017-09-11] MEDS ORDERED: cefTRIAXone IN SWFI 1,000 MG/10 ML SYRINGE IVP STA (01:43)
[2017-09-11] MEDS ORDERED: LORazepam 2 MG/ML INJ IV STA (01:43)
[2017-09-11 01:44] VITALS: TEMP 98.6
[2017-09-11 02:07] VITALS: BP 111/70; PULSE 73; RESP 18
== END 2017-09-11 02:22 | disposition home or self-care (01) ==
LOC: EC 23:36
DX: S20.212A Contusion of left front wall of thorax, initial encounter (principal); J18.9 Pneumonia, unspecified organism; J44.9 Chronic obstructive pulmonary disease, unspecified; F31.9 Bipolar disorder, unspecified; F17.200 Nicotine dependence, unspecified, uncomplicated; Z79.899 Other long term (current) drug therapy; Z88.8 Allergy status to other drugs, medicaments and biological substances; Z91.030 Bee allergy status; W19.XXXA Unspecified fall, initial encounter
CPT/HCPCS: 99285; 96374; 96375; 96361; 82075; 36415; 93005; 80053; 82550; 85025; 85610; 85730; 81003; 80306; 83520 ×2; 87086; 71100; 71046; J2060; J0696

== ENCOUNTER 2018-09-17 18:42 | Emergency (ER) | payer OTHER ==
[2018-09-17] MEDS ORDERED: methylPREDNISolone SOD SUCCI 125 MG/2 ML VIAL IV STA (19:43)
[2018-09-17] MEDS ORDERED: LORazepam 2 MG/ML INJ IV STA (19:44)
[2018-09-17] MEDS ORDERED: IPRATROPIUM-ALBUTEROL 3 ML NEB INHALATION STA (19:44)
[2018-09-17] MEDS ORDERED: KETOROLAC 30 MG/ML 1 ML VIAL IVP STA (19:44)
--- NOTE | 2018-09-17 20:14 | XR ---
EXAMINATION TYPE: XR ribs LT DATE OF EXAM: 09/17/2018 COMPARISON: 09/11/2017 HISTORY: Rib pain TECHNIQUE: 4 views FINDINGS: There is slight blunting of left costophrenic angle. There is no pulmonary infiltrate or pn eumothorax. I see no displaced rib fracture. IMPRESSION: Mild pleural reaction or subsegmental atelectasis at the left lung base is a change abiel red to old exam. No rib fracture seen.
--- NOTE | 2018-09-17 20:16 | XR ---
EXAMINATION TYPE: XR chest 2V DATE OF EXAM: 09/17/2018 COMPARISON: 09/03/2017 HISTORY: Left rib pain TECHNIQUE: Frontal and lateral views of the chest are obtained. FINDINGS: Heart and mediastinum are normal. There is some coarsening of interstitial markings. There is no heart failure. Heart size is normal. There is no mediastinal adenopathy. Costophrenic angles a re clear. Bony thorax appears intact. IMPRESSION: There are coarse lung markings increased slightly compared to old exam. This could be mi ld pulmonary fibrosis. Normal heart.
--- NOTE | 2018-09-17 20:34 | ED ---
General Adult HPI - General Chief complaint: Shortness of Breath Stated complaint: DARYL Time Seen by Provider: 09/17/18 19:32 Source: patient, EMS, RN notes reviewed Mode of arrival: EMS Limitations: no limitations - History of Present Illness Initial comments: 38-year-old male with a past medical history of asthma, COPD, pneumonia presents to the emergency department for a chief complaint of cough. Patient states he has had a cough for 2 days. States he coughed really hard and felt the pain in the lower ribs on the left side. States he has been taking his Power for this pain. States he is coughing up mucus. Does admit that he has continued to smoke. Denies fevers or chills. Does admit to mild congestion.Patient has no other complaints at this time including shortness of breath, chest pain, abdominal pain, nausea or vomiting, headache, or visual changes. - Related Data Home Medications Medication Instructions Recorded Confirmed Gabapentin [Neurontin] 600 mg PO BID PRN 05/25/16 09/17/18 Baclofen [Lioresal] 10 mg PO BID PRN 06/12/16 09/17/18 QUEtiapine FUMARATE [SEROquel XR] 150 mg PO HS 05/13/17 09/17/18 Ergocalciferol (Vitamin D2) 50,000 unit PO Q7D 09/02/17 09/17/18 [Vitamin D2] Lidocaine 3% Cream 1 applic TOPICAL TID PRN 09/02/17 09/17/18 Omeprazole [PriLOSEC] 20 mg PO AC-BID 09/02/17 09/17/18 Previous Rx's Medication Instructions Recorded Albuterol Inhaler [Ventolin Hfa 1 - 2 puff INHALATION Q6HR PRN #1 09/03/17 Inhaler] inhaler Levofloxacin [Levaquin] 750 mg PO DAILY #5 tab 09/03/17 Mometasone/Formoterol [Dulera 100 2 puff INHALATION BID #1 inhaler 09/03/17 Mcg/5 Mcg Inhaler] Montelukast [Singulair] 10 mg PO HS #30 tab 09/03/17 guaiFENesin [Mucinex] 1,200 mg PO Q12HR #60 tablet.er 09/03/17 predniSONE 40 mg PO DAILY #10 tab 09/03/17 traMADol HCl [Ultram] 50 mg PO Q4H PRN #5 tab 09/03/17 Azithromycin [Zithromax Z-pack] 0 mg PO DIRECTED #6 tab 09/11/17 predniSONE 50 mg PO DAILY #3 tablet 09/17/18 predniSONE 50 mg PO DAILY #3 tablet 09/17/18 Allergies Allergy/AdvReac Type Severity Reaction Status Date / Time methylphenidate HCl Allergy Rash/Hives Verified 09/17/18 19:10 [From Ritalin] venom-honey bee Allergy Rash/Hives Verified 09/17/18 19:10 [bee venom (honey bee)] Review of Systems ROS Statement: Those systems with pertinent positive or pertinent negative responses have been documented in the HPI. ROS Other: All systems not noted in ROS Statement are negative. Past Medical History Past Medical History: Asthma, COPD, Pneumonia Additional Past Medical History / Comment(s): HERNIATED DISC IN BACK, CHRONIC PAIN, bipolar disorder, ADD History of Any Multi-Drug Resistant Organisms: None Reported Past Surgical History: No Surgical Hx Reported Additional Past Surgical History / Comment(s): SURGERY ON URETHRAL OPENING A CHILD Past Anesthesia/Blood Transfusion Reactions: No Reported Reaction Past Psychological History: ADD/ADHD, Anxiety, Bipolar Smoking Status: Current every day smoker Past Alcohol Use History: None Reported Past Drug Use History: Marijuana, Prescription Drug Abuse - Past Family History Father History Unknown: Yes mother Family Medical History: Diabetes Mellitus, Hypertension General Exam Limitations: no limitations General appearance: alert Head exam: Present: atraumatic, normocephalic, normal inspection Eye exam: Present: normal appearance, PERRL, EOMI. Absent: scleral icterus, conjunctival injection, periorbital swelling ENT exam: Present: normal exam, normal oropharynx, mucous membranes moist, TM's normal bilaterally, normal external ear exam Neck exam: Present: normal inspection, full ROM. Absent: tenderness, mening ismus, lymphadenopathy Respiratory exam: Present: normal lung sounds bilaterally, wheezes (Minimal wheeze noted bilaterally), chest wall tenderness (Patient has left lower ant erior rib tenderness to palpation). Absent: respiratory distress, rales, rhonchi, stridor Cardiovascular Exam: Present: regular rate, normal rhythm, normal heart sounds. Absent: systolic murmur, diastolic murmur, rubs, gallop, clicks GI/Abdominal exam: Present: soft, normal bowel sounds. Absent: distended, tenderness, guarding, rebound, rigid Neurological exam: Present: alert, oriented X3, CN II-XII intact Psychiatric exam: Present: agitated Course Vital Signs 09/17/18 09/17/18 09/17/18 19:00 20:21 20:34 Temperature 98.3 F Pulse Rate 83 83 86 Respiratory 20 Rate Blood Pressure 123/83 O2 Sat by Pulse 97 Oximetry 09/17/18 20:43 Temperature 98.8 F Pulse Rate 87 Respiratory 18 Rate Blood Pressure 122/69 O2 Sat by Pulse 97 Oximetry - Reevaluation(s) Reevaluation #1: 09/18/18 00:29 Discussed smoking cessation for greater than 3 minutes with patient. Medical Decision Making - Medical Decision Making 38 year old male with a past medical history of asthma, COPD presents for cough 2 days. States he has a productive cough. Denies significant shortness of breath but states that his left lower anterior ribs hurt. States he coughed really hard and felt a sudden pain. Vitals are stable, patient is 97% on room air with a pulse of 83. He is well appearing on exam. Patient is agitated requesting pain medications. Slight wheeze noted on exam, patient given Solu- Medrol and breathing treatment. X-ray shows coarse lung markings which could be mild pulmonary fibrosis, discussed the importance of smoking cessation. Patient is requesting discharge at this time, stating his mother is coming to pick him up at exactly 8:30 and he needs to be discharged now. Patient will be given a prescription for prednisone as he does have asthma. He will follow up with primary care in 1-2 days or return here if he has any worsening symptoms. Disposition Clinical Impression: Cough Disposition: HOME SELF-CARE Condition: Good Instructions (If sedation given, give patient instructions): Upper Respiratory Infection (ED) Additional Instructions: Please follow up with primary care in 1-2 days. Return here to the emergency department if you have any worsening symptoms. Prescriptions: predniSONE 50 mg PO DAILY #3 tablet predniSONE 50 mg PO DAILY #3 tablet Is patient prescribed a controlled substance at d/c from ED?: No Referrals: [facility] [Primary Care Provider] - 1-2 days Time of Disposition: 20:31
[2018-09-17 20:44] VITALS: BP 122/69; PULSE 87; RESP 18; TEMP 98.8
== END 2018-09-17 20:43 | disposition home or self-care (01) ==
LOC: EC 18:42
DX: R05 Cough (principal); R06.2 Wheezing; Z71.6 Tobacco abuse counseling; J84.10 Pulmonary fibrosis, unspecified; F31.9 Bipolar disorder, unspecified; F90.9 Attention-deficit hyperactivity disorder, unspecified type; F41.9 Anxiety disorder, unspecified; F17.200 Nicotine dependence, unspecified, uncomplicated; Z79.899 Other long term (current) drug therapy; Z91.030 Bee allergy status; Z88.8 Allergy status to other drugs, medicaments and biological substances
CPT/HCPCS: 99285 ×2; 99406 ×2; 96374 ×2; 96375 ×3; 94640; 71100; 71046; J2060; J2930; J1885

== ENCOUNTER 2019-01-14 10:41 | Observation (INO) | payer OTHER ==
--- NOTE | 2019-01-14 11:21 | ED ---
Skin/Abscess/FB HPI - General Chief complaint: Skin/Abscess/Foreign Body Stated complaint: Foot infection Time Seen by Provider: 01/14/19 11:04 Source: patient, RN notes reviewed Mode of arrival: wheelchair Limitations: no limitations - History of Present Illness Initial comments: 38-year-old male presents emergency from chief complaint of right leg infection. Patient states that he was hospitalized in another hospital for right leg cellulitis and states that he left AGAINST MEDICAL ADVICE because his significant other was discharged from [place]. Patient states there is any worsening symptoms reports fevers and chills. Patient claims this all started after he stubbed it his foot. Patient has extensive erythema of his right foot and leg. Patient denies any groin pain, back or neck pain on the usual. - Related Data Home Medications Medication Instructions Recorded Confirmed Gabapentin [Neurontin] 600 mg PO BID PRN 05/25/16 09/17/18 Baclofen [Lioresal] 10 mg PO BID PRN 06/12/16 09/17/18 QUEtiapine FUMARATE [SEROquel XR] 150 mg PO HS 05/13/17 09/17/18 Ergocalciferol (Vitamin D2) 50,000 unit PO Q7D 09/02/17 09/17/18 [Vitamin D2] Lidocaine 3% Cream 1 applic TOPICAL TID PRN 09/02/17 09/17/18 Omeprazole [PriLOSEC] 20 mg PO AC-BID 09/02/17 09/17/18 Previous Rx's Medication Instructions Recorded Albuterol Inhaler [Ventolin Hfa 1 - 2 puff INHALATION Q6HR PRN #1 09/03/17 Inhaler] inhaler Levofloxacin [Levaquin] 750 mg PO DAILY #5 tab 09/03/17 Mometasone/Formoterol [Dulera 100 2 puff INHALATION BID #1 inhaler 09/03/17 Mcg/5 Mcg Inhaler] Montelukast [Singulair] 10 mg PO HS #30 tab 09/03/17 guaiFENesin [Mucinex] 1,200 mg PO Q12HR #60 tablet.er 09/03/17 predniSONE 40 mg PO DAILY #10 tab 09/03/17 traMADol HCl [Ultram] 50 mg PO Q4H PRN #5 tab 09/03/17 Azithromycin [Zithromax Z-pack] 0 mg PO DIRECTED #6 tab 09/11/17 predniSONE 50 mg PO DAILY #3 tablet 09/17/18 predniSONE 50 mg PO DAILY #3 tablet 09/17/18 Allergies Allergy/AdvReac Type Severity Reaction Status Date / Time methylphenidate HCl Allergy Rash/Hives Verified 01/14/19 10:51 [From Ritalin] venom-honey bee Allergy Rash/Hives Verified 01/14/19 10:51 [bee venom (honey bee)] Review of Systems ROS Statement: Those systems with pertinent positive or pertinent negative responses have been documented in the HPI. ROS Other: All systems not noted in ROS Statement are negative. Past Medical History Past Medical History: Asthma, COPD, Pneumonia Additional Past Medical History / Comment(s): HERNIATED DISC IN BACK, CHRONIC PAIN, bipolar disorder, ADD History of Any Multi-Drug Resistant Organisms: None Reported Past Surgical History: No Surgical Hx Reported Additional Past Surgical History / Comment(s): SURGERY ON URETHRAL OPENING A CHILD Past Anesthesia/Blood Transfusion Reactions: No Reported Reaction Past Psychological History: ADD/ADHD, Anxiety, Bipolar Smoking Status: Current every day smoker Past Alcohol Use History: None Reported Past Drug Use History: Marijuana, Prescription Drug Abuse - Past Family History Father History Unknown: Yes mother Family Medical History: Diabetes Mellitus, Hypertension General Exam Limitations: no limitations General appearance: alert, in no apparent distress Head exam: Present: atraumatic, normocephalic, normal inspection Respiratory exam: Present: normal lung sounds bilaterally. Absent: respiratory distress, wheezes, rales, rhonchi, stridor Cardiovascular Exam: Present: regular rate, normal rhythm, normal heart sounds. Absent: systolic murmur, diastolic murmur, rubs, gallop, clicks Extremities exam: Present: other (Right foot, right lower leg there is erythema with swelling noted to the mid calf there is tenderness with palpation, no open lesions or sores noted pedal pulses equal bilaterally) Course Vital Signs 01/14/19 10:51 Temperature 97.7 F Pulse Rate 75 Respiratory 18 Rate Blood Pressure 139/96 O2 Sat by Pulse 96 Oximetry Medical Decision Making - Medical Decision Making 38-year-old male presented from for right leg infection. Patient does have a 4 digit toe fracture along with extensive cellulitis. Patient was placed on antib iotics at this time. - Lab Data Result diagrams: 01/14/19 11:38 01/14/19 11:38 Lab Results 01/14/19 01/14/19 01/14/19 Range/Units 11:38 11:38 11:38 WBC 5.5 (3.8-10.6) k/uL RBC 4.20 L (4.30-5.90) m/uL Hgb 12.6 L (13.0-17.5) gm/dL Hct 38.4 L (39.0-53.0) % MCV 91.4 (80.0-100.0) fL MCH 30.1 (25.0-35.0) pg MCHC 32.9 (31.0-37.0) g/dL RDW 15.4 (11.5-15.5) % Plt Count 311 (150-450) k/uL Neutrophils % 58 % Lymphocytes % 26 % Monocytes % 7 % Eosinophils % 6 % Basophils % 1 % Neutrophils # 3.2 (1.3-7.7) k/uL Lymphocytes # 1.4 (1.0-4.8) k/uL Monocytes # 0.4 (0-1.0) k/uL Eosinophils # 0.4 (0-0.7) k/uL Basophils # 0.0 (0-0.2) k/uL Sodium 137 (137-145) mmol/L Potassium 4.9 (3.5-5.1) mmol/L Chloride 105 (98-107) mmol/L Carbon Dioxide 30 (22-30) mmol/L Anion Gap 2 mmol/L BUN 14 (9-20) mg/dL Creatinine 0.88 (0.66-1.25) mg/dL Est GFR (CKD-EPI)AfAm >90 (>60 ml/min/1.73 sqM) Est GFR (CKD-EPI)NonAf >90 (>60 ml/min/1.73 sqM) Glucose 83 (74-99) mg/dL Plasma Lactic Acid Bhavik 1.1 (0.7-2.0) mmol/L Calcium 9.0 (8.4-10.2) mg/dL Total Bilirubin 0.4 (0.2-1.3) mg/dL AST 21 (17-59) U/L ALT 18 L (21-72) U/L Alkaline Phosphatase 56 (38-126) U/L C-Reactive Protein 21.5 H (<10.0) mg/L Total Protein 6.3 (6.3-8.2) g/dL Albumin 3.5 (3.5-5.0) g/dL Disposition Clinical Impression: Cellulitis of right leg, Toe fracture, right Disposition: ADMITTED IP TO THIS HOSP Condition: Fair Referrals: [facility] [Primary Care Provider] - 1-2 days
[2019-01-14] MEDS ORDERED: HYDROcodone/APAP 7.5-325MG 1 EACH TAB PO ONE (11:44)
[2019-01-14] MEDS ORDERED: KETOROLAC 30 MG/ML 1 ML VIAL IVP STA (11:44)
[2019-01-14 11:53] LABS: Basophils % (A) 1 %; Eosinophils # (A) 0.4 k/uL (0-0.7); Eosinophils % (A) 6 %; HCT 38.4 % (39.0-53.0); HGB 12.6 gm/dL (13.0-17.5); Lymphocytes # (A) 1.4 k/uL (1.0-4.8); Lymphocytes % (A) 26 %; MCH 30.1 pg (25.0-35.0); MCHC 32.9 g/dL (31.0-37.0); MCV 91.4 fL (80.0-100.0); Mean Platelet Volume 7.1; Monocytes # (A) 0.4 k/uL (0-1.0); Monocytes % (A) 7 %; Neutrophils # (A) 3.2 k/uL (1.3-7.7); Neutrophils % (A) 58 %; Platelet Count 311 k/uL (150-450); RDW 15.4 % (11.5-15.5); WBC 5.5 k/uL (3.8-10.6)
[2019-01-14 12:06] LABS: African American GFR (CKD) >90 (>60 ml/min/1.73 sqM); Albumin 3.5 g/dL (3.5-5.0); Anion Gap 2 mmol/L; Blood Urea Nitrogen 14 mg/dL (9-20); C Reactive Protein 21.5 mg/L (<10.0); Carbon Dioxide 30 mmol/L (22-30); Chloride 105 mmol/L (98-107); Glucose 83 mg/dL (74-99); Non-African American GFR(CKD) >90 (>60 ml/min/1.73 sqM); Sodium 137 mmol/L (137-145); Total Bilirubin 0.4 mg/dL (0.2-1.3); Total Protein 6.3 g/dL (6.3-8.2)
--- NOTE | 2019-01-14 12:08 | XR ---
EXAMINATION TYPE: XR foot complete RT DATE OF EXAM: 01/14/2019 COMPARISON: NONE HISTORY: Swelling and redness TECHNIQUE: Three views are submitted. FINDINGS: The osseous structures are intact. There is no acute fracture or dislocation. Arthropathy of the f irst MTP joint. There is a fracture involving the base of the proximal phalanx fourth digit. Mild dis placement. IMPRESSION: 1. Soft tissue edema. There is a fracture involving the proximal phalanx of the fourth digit with mil d displacement. 2. There is mild deformity of the superior margin of the calcaneus on the lateral view. If the patien t is point tender would recommend a dedicated calcaneal series.
[2019-01-14 12:15] LABS: ALT 18 U/L (21-72); AST 21 U/L (17-59); Alkaline Phosphatase 56 U/L (38-126); Potassium 4.9 mmol/L (3.5-5.1)
[2019-01-14] MEDS ORDERED: VANCOMYCIN IV PER PHARMACY 1 EACH MISC MISCELLANE PRN (12:43)
[2019-01-14] MEDS ORDERED: KETOROLAC 30 MG/ML 1 ML VIAL IVP PRN (12:46)
[2019-01-14] MEDS ORDERED: NALOXONE 0.4 MG/ML 1 ML VIAL IV PRN (12:46)
[2019-01-14] MEDS ORDERED: ONDANSETRON 4 MG/2 ML VIAL IVP PRN (12:46)
[2019-01-14] MEDS ORDERED: GABAPENTIN 300 MG CAP PO PRN (12:47)
[2019-01-14] MEDS ORDERED: VANCOMYCIN 1,500 MG in SODIUM CHLORIDE 0.9% 250 ML IVPB STA (12:51)
[2019-01-14] MEDS ORDERED: TEMAZEPAM 15 MG CAP PO PRN (14:57)
[2019-01-14] MEDS ORDERED: LORazepam 0.5 MG TAB PO PRN (15:48)
[2019-01-14] MEDS: HYDROmorphone 0.5 MG/0.5 ML SYRINGE IVP PRN ×2 (16:09→23:00)
[2019-01-14 17:24] LABS: Appearance,Urine Clear (Clear); Bilirubin,Urine Negative (Negative); Blood,Urine Negative (Negative); Color,Urine Light Yellow; Glucose,Urine (UA) Negative (Negative); Ketones,Urine Negative (Negative); Leukocyte Esterase,Urine Negative (Negative); Nitrite,Urine Negative (Negative); Protein,Urine Negative (Negative); Specific Gravity,Urine 1.006 (1.001-1.035); Urobilinogen,Urine <2.0 mg/dL (<2.0)
[2019-01-14] MEDS ORDERED: NON FORMULARY DRUG (Omeprazole 20 MG) PO SCH (17:30)
--- NOTE | 2019-01-14 17:44 | HP ---
HISTORY AND PHYSICAL DATE OF SERVICE: 01/14/2019 CHIEF COMPLAINT: Pain and swelling of the right foot. HISTORY OF PRESENT ILLNESS: This 38-year-old gentleman with a past medical history of asthma, pneumonia, history of herniated disc, ADD, ADHD, anxiety, bipolar, being followed by [facility] in the outpatient setting, apparently kicked a door a few days ago. The patient developed pain and swelling and the patient was admitted to [facility]. The patient left AGAINST MEDICAL ADVICE because the patient's significant other was being discharged from [place]. The patient came to [facility] and was admitted for evaluation and treatment. X-ray showed some soft tissue swelling as well as a fracture involving the proximal phalanx of the fourth digit with mild displacement. There is no history of any fever, rigor or chills. No history of headache, loss of consciousness, seizures. Patient is complaining of severe pain. PAST MEDICAL HISTORY: 1. Asthma. 2. Pneumonia. 3. History of herniated disc. 4. History ADD, ADHD. 5. History of anxiety. 6. Bipolar. HOME MEDICATIONS: Home medications are reviewed and include: 1. Prilosec 20 mg before meals b.i.d. 2. [place] 7.5 b.i.d. p.r.n. 3. Gabapentin 800 mg p.o. b.i.d.. ALLERGIES: RITALIN and HONEY BEE. FAMILY HISTORY: History of diabetes and hypertension in the family. SOCIAL HISTORY: History of THC, history of smoking, continued ongoing. REVIEW OF SYSTEMS: ENT: No diminished hearing. No diminished vision. CARDIOVASCULAR SYSTEM: No angina, palpitations. RESPIRATORY SYSTEM: No cough, hemoptysis. GI: No nausea, vomiting. : No dysuria or retention. NERVOUS SYSTEM: No numbness, weakness. ALLERGY/IMMUNOLOGY: No asthma, hayfever. MUSCULOSKELETAL: As mentioned earlier. HEMATOLOGY/ONCOLOGY: No history of anemia. ENDOCRINE: No history of diabetes, hypothyroidism. CONSTITUTIONAL: As mentioned earlier. DERMATOLOGY: Negative. RHEUMATOLOGY: Negative. PSYCHIATRY: As mentioned earlier. PHYSICAL EXAMINATION: Patient alert and oriented x3. Pulse 75, blood pressure 118/74, respiration 18, temperature 97 degrees, pulse ox 98% on room air. HEENT: Conjunctivae normal. Oral mucosa moist. NECK: No jugular venous distention. No carotid bruit. No lymph node enlargement. CARDIOVASCULAR SYSTEM: S1, S2 muffled. RESPIRATORY SYSTEM: Breath sounds diminished at the bases. No rhonchi. No crackles. ABDOMEN: Soft, non-tender. No mass palpable. LEGS: Significant pain and swelling of the right foot present. Some tenderness. NERVOUS SYSTEM: Higher functions as mentioned earlier. Moves all 4 limbs. No focal motor or sensory deficit. LYMPHATICS: No lymph node palpable in neck, axillae or groin. SKIN: As mentioned earlier. JOINTS: No active deforming arthropathy. Otherwise as mentioned earlier. FEET: As mentioned earlier. LABS: WBC 5.5, hemoglobin 12.6. C-reactive protein 21.5. ASSESSMENT: 1. Acute cellulitis of the right leg with failure of outpatient treatment. 2. Acute fracture of the proximal phalanx of the fourth digit with mild displacement. Rule out calcaneal fracture. 3. Anemia, normocytic; anemia of chronic disease. 4. History of asthma. 5. History of pneumonia. 6. History of herniated disc and back pain. 7. History of attention deficit disorder, attention deficit hyperactivity disorder. 8. Anxiety, bipolar. 9. Continued ongoing nicotine dependence. 10.History of prescription drug abuse. RECOMMENDATIONS AND DISCUSSION: In this 38-year-old gentleman who presented with multiple medical problems, we will monitor the patient closely, continue the current management, continue symptomatic treatment. Otherwise at this time I recommend continuing with current medications, pain medications, IV antibiotics. Otherwise, we will also get infectious disease evaluation. Symptomatic treatment. Orthopedic evaluation. Guarded prognosis because of multiple complex medical issues. DVT prophylaxis. Further recommendations to follow. A copy of this dictation is being forwarded to [facility], who is the primary physician. MMODL / IJN: [id number] /
[2019-01-14] MEDS ORDERED: VANCOMYCIN 1,500 MG in SODIUM CHLORIDE 0.9% 250 ML IVPB SCH (20:00)
[2019-01-14] MEDS: HEPARIN SODIUM,PORCINE 5,000 UNIT/ML 1 ML VIAL SQ SCH (20:17)
[2019-01-14] MEDS: GABAPENTIN 400 MG CAP PO SCH (20:17)
[2019-01-14] MEDS: HYDROcodone/APAP 7.5-325MG 1 EACH TAB PO PRN (20:24)
[2019-01-15] MEDS: HYDROcodone/APAP 7.5-325MG 1 EACH TAB PO PRN ×4 (02:06→21:01)
[2019-01-15] MEDS: HYDROmorphone 0.5 MG/0.5 ML SYRINGE IVP PRN ×3 (05:17→18:10)
[2019-01-15] MEDS: HEPARIN SODIUM,PORCINE 5,000 UNIT/ML 1 ML VIAL SQ SCH ×2 (07:57→21:01)
[2019-01-15] MEDS: GABAPENTIN 400 MG CAP PO SCH ×3 (07:57→21:00)
[2019-01-15] MEDS: PANTOPRAZOLE 40 MG TABLET PO SCH (07:57)
--- NOTE | 2019-01-15 08:26 | P.CNOR ---
History of Present Illness - [facility] Consult date: 01/15/19 Consult reason: other (Right foot pain ) History of present illness: The patient is a 38-year-old male who presented to the emergency department with a known right leg cellulitis. He states he stubbed his toes 4 days ago and noticed increased redness and swelling to his right leg. He was hospitalized at [facility] and left AGAINST MEDICAL ADVICE. He presented to [facility] for further treatment. An x-ray of the right foot was obtained in the ER and revealed a fourth toe proximal phalanx fracture. Orthopedics was consulted for further evaluation. Today, the patient states that he has pain in his right foot. He is able to weight-bear without difficulty. There is an area marked on his lower leg and the redness appears to be improving. Patient states that these to go home today and is very agitated since his girlfriend is not in the room at this time. He denies fever, chills, rigors, or open wounds to the right foot. Review of Systems Constitutional: Denies chills, Denies fatigue, Denies fever Cardiovascular: Denies chest pain, Denies shortness of breath Respiratory: Denies cough Gastrointestinal: Denies diarrhea, Denies nausea, Denies vomiting Musculoskeletal: right: foot pain, foot swelling Past Medical History Past Medical History: Asthma, Pneumonia Additional Past Medical History / Comment(s): Herniated disc in back, chronic back pain. History of Any Multi-Drug Resistant Organisms: None Reported Past Surgical History: No Surgical Hx Reported Additional Past Surgical History / Comment(s): SURGERY ON URETHRAL OPENING A CHILD, back injections. Past Anesthesia/Blood Transfusion Reactions: No Reported Reaction Smoking Status: Current every day smoker - Past Family History Father History Unknown: Yes mother Family Medical History: Diabetes Mellitus, Hypertension Medications and Allergies Home Medications Medication Instructions Recorded Confirmed Type Omeprazole [PriLOSEC] 20 mg PO AC-BID 09/02/17 01/14/19 History Gabapentin 800 mg PO BID 01/14/19 01/14/19 History HYDROcodone/APAP 7.5-325MG [[place] 1 tab PO BID PRN 01/14/19 01/14/19 History 7.5-325] Allergies Allergy/AdvReac Type Severity Reaction Status Date / Time methylphenidate HCl Allergy Rash/Hives Verified 01/14/19 13:04 [From Ritalin] venom-honey bee Allergy Rash/Hives Verified 01/14/19 13:04 [bee venom (honey bee)] Physical Examination The patient is a 38-year-old male who is in no acute distress but is very agitated. He is alert and oriented 3. Exam of the right lower extremity reveals a marked line to his lower leg. Redness has receded. There is redness and swelling to the dorsal foot extending past the ankle. No open wounds are present. There is point tenderness to the fourth toe proximal phalanx level. Some limitations in range of motion of the toes due to pain and guarding. Full active range of motion to the ankle and knee. Calf is soft and nontender. Neurological and circulatory status is intact. Results - Labs Labs: Abnormal Lab Results - Last 24 Hours (Table) 01/14/19 01/14/19 Range/Units 11:38 11:38 RBC 4.20 L (4.30-5.90) m/uL Hgb 12.6 L (13.0-17.5) gm/dL Hct 38.4 L (39.0-53.0) % ALT 18 L (21-72) U/L C-Reactive Protein 21.5 H (<10.0) mg/L H & H 01/14/19 Range/Units 11:38 Hgb 12.6 L (13.0-17.5) gm/dL Hct 38.4 L (39.0-53.0) % Result Diagrams: 01/15/19 08:22 01/15/19 08:22 - Diagnostic results Ankle/Foot x-ray: image reviewed (Three views of the right foot reveal a nondisplaced fourth toe proximal phalanx fracture. Fracture alignment is satisfactory. ) Assessment and Plan (1) Cellulitis of right leg Current Visit: Yes Status: Acute Code(s): L03.115 - CELLULITIS OF RIGHT LOWER LIMB SNOMED Code(s): 702699399 (2) Toe fracture, right Current Visit: Yes Status: Acute Code(s): S92.911A - UNSP FRACTURE OF RIGHT TOE(S), INIT FOR CLOS FX SNOMED Code(s): 25478810 Plan: The clinical and x-ray findings were discussed with the patient. The case was also discussed with Dr. Krause. The patient declines use of a postoperative shoe or boot. He may mabel tape his toes for comfort. Hardsole shoes are recommended. Continue treatment of the lower leg cellulitis by infectious disease. The patient may follow-up in our office as needed if pain in the toe continues. He states he has pain medication at home and does not need a pain medication prescription at this time. Patient is orthopedically stable for discharge and we will sign off at this time.
[2019-01-15] MEDS: ALPRAZolam 0.25 MG TAB PO PRN ×2 (08:31→21:00)
[2019-01-15 09:12] LABS: African American GFR (CKD) >90 (>60 ml/min/1.73 sqM); Anion Gap 4 mmol/L; Blood Urea Nitrogen 17 mg/dL (9-20); Calcium 8.7 mg/dL (8.4-10.2); Carbon Dioxide 33 mmol/L (22-30); Chloride 102 mmol/L (98-107); Glucose 98 mg/dL (74-99); Non-African American GFR(CKD) >90 (>60 ml/min/1.73 sqM); Potassium 4.5 mmol/L (3.5-5.1); Sodium 139 mmol/L (137-145)
[2019-01-15 10:01] LABS: Basophils # (A) 0.1 k/uL (0-0.2); Basophils % (A) 3 %; Eosinophils # (A) 0.3 k/uL (0-0.7); Eosinophils % (A) 7 %; HCT 36.7 % (39.0-53.0); HGB 11.9 gm/dL (13.0-17.5); Lymphocytes # (A) 1.4 k/uL (1.0-4.8); Lymphocytes % (A) 31 %; MCH 29.5 pg (25.0-35.0); MCHC 32.4 g/dL (31.0-37.0); MCV 91.2 fL (80.0-100.0); Mean Platelet Volume 7.5; Monocytes # (A) 0.4 k/uL (0-1.0); Monocytes % (A) 9 %; Neutrophils # (A) 2.1 k/uL (1.3-7.7); Neutrophils % (A) 47 %; Platelet Count 312 k/uL (150-450); RBC 4.03 m/uL (4.30-5.90); RDW 15.3 % (11.5-15.5); WBC 4.4 k/uL (3.8-10.6)
[2019-01-15] MEDS: NICOTINE 21MG/24HR PATCH TRANSDERM SCH (10:49)
--- NOTE | 2019-01-15 13:09 | P.CONS ---
History of Present Illness - Reason for Consult Consult date: 01/14/19 Right foot cellulitis Requesting physician: Emeli Tsai - Chief Complaint Right foot pain swelling redness 4 days - History of Present Illness Patient is a 38-year-old male who apparently bumped his foot against a wall about 4 days ago the patient did not have any open wound or any significant bruise however after that the patient could have more pain swelling and subsequently redness to the right foot and apparently has been extending to the lower leg area patient describing the pain in the leg/foot area to be throbbing about 10 out of 10 when he presented to the hospital patient did not have any open wound or any drainage the patient denies high-grade fever however did have some chills patient did have x-rays of the right foot today shows evidence of a right fourth toe fracture patient has been diagnosed with cellulitis he was started on vancomycin and Rocephin admitted to the hospital infection disease was consulted for further recommendations regarding antibiotic therapy, , since admission to the hospital the patient is afebrile and his white count is normal Review of Systems Positive point has been mentioned in the HPI rest of the systems are negative Past Medical History Past Medical History: Asthma, Pneumonia Additional Past Medical History / Comment(s): Herniated disc in back, chronic back pain. History of Any Multi-Drug Resistant Organisms: None Reported Past Surgical History: No Surgical Hx Reported Additional Past Surgical History / Comment(s): SURGERY ON URETHRAL OPENING A CHILD, back injections. Past Anesthesia/Blood Transfusion Reactions: No Reported Reaction Smoking Status: Current every day smoker - Past Family History Father History Unknown: Yes mother Family Medical History: Diabetes Mellitus, Hypertension Medications and Allergies Home Medications Medication Instructions Recorded Confirmed Type Omeprazole [PriLOSEC] 20 mg PO AC-BID 09/02/17 01/14/19 History Gabapentin 800 mg PO BID 01/14/19 01/14/19 History HYDROcodone/APAP 7.5-325MG [[place] 1 tab PO BID PRN 01/14/19 01/14/19 History 7.5-325] Allergies Allergy/AdvReac Type Severity Reaction Status Date / Time methylphenidate HCl Allergy Rash/Hives Verified 01/14/19 13:04 [From Ritalin] venom-honey bee Allergy Rash/Hives Verified 01/14/19 13:04 [bee venom (honey bee)] Physical Exam Vitals: Vital Signs Temp Pulse Resp BP Pulse Ox 01/14/19 15:10 97.0 F L 75 18 118/75 98 01/14/19 14:16 60 18 120/61 98 01/14/19 10:51 97.7 F 75 18 139/96 96 Intake and Output 01/14/19 01/14/19 01/14/19 06:59 14:59 22:59 Other: Voiding Method Toilet Weight 83.461 kg GENERAL DESCRIPTION: Middle-aged male lying in bed, no distress. No tachypnea or accessory muscle of respiration use. HEENT: Shows Pallor , no scleral icterus. Oral mucous membrane is dry. No pharyngeal erythema or thrush NECK: Trachea central, no thyromegaly. LUNGS: Unlabored breathing. Clear to auscultation anteriorly. No wheeze or crackle. HEART: S1, S2, regular rate and rhythm. No loud murmur ABDOMEN: Soft, no tenderness , guarding or rigidity, no organomegaly EXTREMITIES: Right foot is currently swollen and red warm to touch no blister open wound or any drainage. SKIN: No rash, no masses palpable. NEUROLOGICAL: The patient is awake, alert, oriented x3, mood and affect normal. Results CBC & Chem 7: 01/15/19 08:22 01/15/19 08:22 Labs: Abnormal Lab Results - Last 24 Hours (Table) 01/14/19 01/14/19 Range/Units 11:38 11:38 RBC 4.20 L (4.30-5.90) m/uL Hgb 12.6 L (13.0-17.5) gm/dL Hct 38.4 L (39.0-53.0) % ALT 18 L (21-72) U/L C-Reactive Protein 21.5 H (<10.0) mg/L Assessment and Plan Assessment: 1-patient with right foot cellulitis patient had did have diffuse swelling and redness in this patient who did have history of trauma, currently with no open wound or any signs of abscess likely secondary to gram-positive skin dheeraj likely streptococcal disease clinically doubt MRSA or gram-negative infection. (1) Cellulitis of right leg Current Visit: Yes Status: Acute Code(s): L03.115 - CELLULITIS OF RIGHT LOWER LIMB SNOMED Code(s): 789534863 Plan: 1-discontinue the Rocephin and the vancomycin 2-cefazolin 2 g every 8 hours 3-keep the foot/leg elevated We will follow on clinical condition and cultures to further adjust medication if needed Thank you for this consultation will follow this patient with you Time with Patient: Greater than 30
--- NOTE | 2019-01-15 15:19 | PN ---
PROGRESS NOTE DATE OF SERVICE: 01/15/2019 This is a 38-year-old gentleman who was admitted with significant swelling and pain of the right foot, also had toe fracture on the right side. Orthopedic Surgery is following the patient closely. No chest pain. No palpitations. No fever. Orthopedics has recommended mabel tape for comfort and the patient declines apparently postoperative shoe or boot. No chest pain. No palpitations. No fever. PHYSICAL EXAM: Alert and oriented x3. Pulse is 70, blood pressure 125/80, respiration 16, temperature 98.2, pulse ox 97% on room air. HEENT: Conjunctivae normal NECK: No jugular venous distension. CARDIOVASCULAR: S1, S2 muffled. RESPIRATORY: Breath sounds diminished at the bases, no rhonchi, no crackles. ABDOMEN: Soft, nontender. LEGS: Right foot is slightly painful. Erythema, cellulitis present. NERVOUS SYSTEM: No focal deficits. LABS: WBC is 4.3, hemoglobin 11.9. ASSESSMENT: 1. Acute cellulitis of the right leg with failure of outpatient treatment. 2. Acute fracture of the proximal phalanx of the fourth digit with mild displacement seen by Orthopedics, recommended mabel tape. 3. Anemia, normocytic anemia of chronic disease. 4. History of asthma. 5. History of pneumonia. 6. History of herniated sac and back pain. 7. History of attention-deficit disorder/attention-deficit/hyperactivity disorder. 8. Anxiety, bipolar. 9. Continued ongoing nicotine dependence. 10.History of prescription drug abuse. RECOMMENDATION: Recommend to continue current medications, monitoring and symptomatic treatment. Otherwise, at this time will continue with the antibiotics, pain medications. Closely follow with Orthopedic Surgery. Guarded prognosis because of multiple complex medical issues. Further recommendations to follow. MMODL / IJN: [id number] /
--- NOTE | 2019-01-15 18:33 | PN ---
PROGRESS NOTE DATE OF SERVICE: 01/15/2019. REASON FOR FOLLOWUP: Right foot and leg cellulitis. INTERVAL HISTORY: The patient is currently afebrile. The patient has been breathing comfortably. The patient denies having any chest pain, shortness of breath or cough. No nausea. No vomiting. No abdominal pain or any worsening pain to the right foot area. PHYSICAL EXAMINATION: Blood pressure 124/80 with a pulse of 70, temperature 98.2. He is 97% on room air. General description is a middle-aged male up in the bed in no distress. RESPIRATORY SYSTEM: Unlabored breathing. Clear to auscultation anteriorly. HEART: S1, S2. Regular rate and rhythm. ABDOMEN: Soft. No tenderness. Right foot swelling and redness have improved, currently with no open wound or any drainage. LABS: Hemoglobin 11.9, white count 4.4, BUN of 17, creatinine 1.01. DIAGNOSTIC IMPRESSION AND PLAN: Patient with acute right foot and leg cellulitis that started with trauma to the foot from an injury. Currently with no open wound or any drainage. Responding to cefazolin 2 grams q.8; to continue, finishing therapy with oral Keflex 500 mg t.i.d. for about a week with close outpatient followup. MMODL / IJN: [id number] /
[2019-01-15] MEDS ORDERED: VANCOMYCIN TROUGH DUE 1 EACH MISC MISCELLANE ONE (19:00)
[2019-01-15] MEDS ORDERED: diphenhydrAMINE 50 MG CAP PO SCH (21:00)
[2019-01-15 21:15] VITALS: RESP 18
[2019-01-16] MEDS: HYDROmorphone 0.5 MG/0.5 ML SYRINGE IVP PRN (00:23)
[2019-01-16] MEDS: HYDROcodone/APAP 7.5-325MG 1 EACH TAB PO PRN ×2 (05:27→08:27)
[2019-01-16 06:12] VITALS: BP 127/72; PULSE 71; TEMP 97.1
[2019-01-16] MEDS: GABAPENTIN 400 MG CAP PO SCH (08:26)
[2019-01-16] MEDS: NICOTINE 21MG/24HR PATCH TRANSDERM SCH (08:27)
[2019-01-16] MEDS: HEPARIN SODIUM,PORCINE 5,000 UNIT/ML 1 ML VIAL SQ SCH (08:27)
[2019-01-16] MEDS: PANTOPRAZOLE 40 MG TABLET PO SCH (08:27)
[2019-01-16 10:00] LABS: Basophils # (A) 0.1 k/uL (0-0.2); Basophils % (A) 1 %; Eosinophils # (A) 0.3 k/uL (0-0.7); Eosinophils % (A) 6 %; HCT 37.8 % (39.0-53.0); HGB 12.2 gm/dL (13.0-17.5); Lymphocytes # (A) 1.4 k/uL (1.0-4.8); Lymphocytes % (A) 30 %; MCH 29.6 pg (25.0-35.0); MCHC 32.4 g/dL (31.0-37.0); MCV 91.5 fL (80.0-100.0); Monocytes # (A) 0.3 k/uL (0-1.0); Monocytes % (A) 7 %; Neutrophils # (A) 2.5 k/uL (1.3-7.7); Neutrophils % (A) 54 %; Platelet Count 318 k/uL (150-450); RBC 4.13 m/uL (4.30-5.90); RDW 15.4 % (11.5-15.5); WBC 4.7 k/uL (3.8-10.6)
[2019-01-16 10:06] LABS: African American GFR (CKD) >90 (>60 ml/min/1.73 sqM); Anion Gap 3 mmol/L; Blood Urea Nitrogen 21 mg/dL (9-20); Calcium 8.9 mg/dL (8.4-10.2); Carbon Dioxide 32 mmol/L (22-30); Chloride 106 mmol/L (98-107); Glucose 122 mg/dL (74-99); Non-African American GFR(CKD) >90 (>60 ml/min/1.73 sqM); Potassium 4.5 mmol/L (3.5-5.1); Sodium 141 mmol/L (137-145)
--- NOTE | 2019-01-17 00:16 | DS ---
DISCHARGE SUMMARY DATE OF SERVICE: 01/16/2019. FINAL DIAGNOSES: 1. Acute cellulitis of the right leg with failure of outpatient treatment. 2. Acute fracture of the proximal phalanx of the fourth digit with mild displacement as seen by Orthopedics recommended mabel tape. 3. Anemia, normocytic anemia of chronic disease. 4. History of asthma. 5. History of pneumonia. 6. History of herniated sac and as well as back pain. 7. History attention-deficit disorder, attention-deficit/hyperactivity disorder. 8. History of anxiety, bipolar. 9. Continued ongoing nicotine dependence. 10.History of prescription drug abuse previously. DISCHARGE DISPOSITION: The patient being discharged in stable condition with guarded prognosis. HISTORY OF PRESENT ILLNESS: This 38-year-old gentleman with past medical history of multiple medical problems, was admitted with right foot cellulitis. Patient also had a fracture which was treated conservatively. Patient improved significantly. On exam, vitals are stable. Cardiovascular: S1, S2. Abdomen soft. Nervous system: No focal deficits. Foot: Minimal cellulitis present. The patient being discharged in stable condition with guarded prognosis. DISCHARGE ADVICE AND MEDICATIONS: 1. Diet is cardiac diet. 2. Activity limited until followup. 3. Follow up with [facility] as mentioned. 4. Follow up with Orthopedic's as recommend. DISCHARGE MEDICATIONS: 1. Gabapentin 800 mg p.o. b.i.d. 2. [place] 7.5 b.i.d. p.r.n. 3. Prilosec 20 mg b.i.d. 4. Keflex 500 mg q.6h for 1 week. Once again, the patient is being discharged in stable condition with guarded prognosis. MMODL / IJN: [id number] /
== END 2019-01-16 10:15 ==
LOC: EC 10:41 → 3NMEDONC 12:55 → 4MS4W 14:41
PROVIDERS: ADMIT Internal Medicine; ATTEND Internal Medicine
DX: L03.115 Cellulitis of right lower limb (principal); S92.501A Displaced unspecified fracture of right lesser toe(s), initial encounter for closed fracture; J44.9 Chronic obstructive pulmonary disease, unspecified; F31.9 Bipolar disorder, unspecified; G89.29 Other chronic pain; M54.9 Dorsalgia, unspecified; F90.9 Attention-deficit hyperactivity disorder, unspecified type; F41.9 Anxiety disorder, unspecified; F17.200 Nicotine dependence, unspecified, uncomplicated; D63.8 Anemia in other chronic diseases classified elsewhere; R45.1 Restlessness and agitation; W22.8XXA Striking against or struck by other objects, initial encounter; Z79.51 Long term (current) use of inhaled steroids; Z79.899 Other long term (current) drug therapy; Z88.8 Allergy status to other drugs, medicaments and biological substances; Z91.030 Bee allergy status; Z87.01 Personal history of pneumonia (recurrent); Z87.898 Personal history of other specified conditions; Z83.3 Family history of diabetes mellitus; Z82.49 Family history of ischemic heart disease and other diseases of the circulatory system
CPT/HCPCS: 96376 ×3; 96366 ×3; 96367 ×2; 96372 ×2; 96375 ×2; 96365; 99284; 36415; 80053; 80048 ×2; 83605; 85025 ×3; 86140; 81003; 87040; 73630; G0378 ×3; S4990; J3370; J1644 ×2; J0690 ×2; J0696; J1885 ×2; J1170 ×3

== ENCOUNTER 2019-10-18 08:55 | Emergency (ER) | payer OTHER ==
[2019-10-18 09:07] VITALS: BP 129/90; PULSE 66; RESP 18; TEMP 97.9
--- NOTE | 2019-10-18 09:29 | ED ---
General Adult HPI - General Chief complaint: Nausea/Vomiting/Diarrhea Stated complaint: lethargy Time Seen by Provider: 10/18/19 08:59 Source: patient, RN notes reviewed Mode of arrival: ambulatory Limitations: no limitations - History of Present Illness Initial comments: Patient is a 39-year-old male presenting to the emergency department with fatigue and nausea. Patient took [place] last 2 days ago. Patient states he used to get more [place] however his doctor was put in [facility]. Patient has not been receiving this much lately and takes it and appropriately. Patient took a Suboxone and he got off the street yesterday. Patient complains of feeling fatigued and nauseated, decreased appetite. Patient also feels somewhat restless. No dyspnea. No fevers. No abdominal pain. Patient received Zofran by EMS and is feeling much better. - Related Data Home Medications Medication Instructions Recorded Confirmed Omeprazole [PriLOSEC] 20 mg PO AC-BID 09/02/17 01/14/19 Gabapentin 800 mg PO BID 01/14/19 01/14/19 HYDROcodone/APAP 7.5-325MG [[place] 1 tab PO BID PRN 01/14/19 01/14/19 7.5-325] Previous Rx's Medication Instructions Recorded Cephalexin [Keflex] 500 mg PO Q8HR #21 cap 01/16/19 Ondansetron Odt [Zofran Odt] 4 mg PO Q8HR PRN #10 tab 10/18/19 Allergies Allergy/AdvReac Type Severity Reaction Status Date / Time methylphenidate HCl Allergy Rash/Hives Verified 10/18/19 09:03 [From Ritalin] venom-honey bee Allergy Rash/Hives Verified 10/18/19 09:03 [bee venom (honey bee)] Review of Systems ROS Statement: Those systems with pertinent positive or pertinent negative responses have been documented in the HPI. ROS Other: All systems not noted in ROS Statement are negative. Constitutional: Denies: fever Eyes: Denies: eye pain ENT: Denies: ear pain Respiratory: Denies: dyspnea Cardiovascular: Denies: chest pain Endocrine: Reports: fatigue Gastrointestinal: Reports: nausea. Denies: abdominal pain, vomiting Genitourinary: Denies: dysuria Musculoskeletal: Reports: back pain (Chronic unchanged back pain) Skin: Denies: rash Neurological: Denies: weakness Past Medical History Past Medical History: Asthma, Pneumonia Additional Past Medical History / Comment(s): Herniated disc in back, chronic back pain. History of Any Multi-Drug Resistant Organisms: None Reported Past Surgical History: No Surgical Hx Reported Additional Past Surgical History / Comment(s): SURGERY ON URETHRAL OPENING A CHILD, back injections. Past Anesthesia/Blood Transfusion Reactions: No Reported Reaction Past Psychological History: ADD/ADHD, Anxiety, Bipolar Smoking Status: Current every day smoker Past Alcohol Use History: None Reported Past Drug Use History: Marijuana - Past Family History Father History Unknown: Yes mother Family Medical History: Diabetes Mellitus, Hypertension General Exam Limitations: no limitations General appearance: alert, in no apparent distress Head exam: Present: normocephalic Eye exam: Present: normal appearance Neck exam: Present: normal inspection Respiratory exam: Present: normal lung sounds bilaterally Cardiovascular Exam: Present: regular rate, normal rhythm GI/Abdominal exam: Present: soft. Absent: tenderness Extremities exam: Present: normal inspection. Absent: pedal edema, calf tenderness Neurological exam: Present: alert Psychiatric exam: Present: normal affect, normal mood Skin exam: Present: normal color Course Vital Signs 10/18/19 08:57 Temperature 97.9 F Pulse Rate 66 Respiratory 18 Rate Blood Pressure 129/90 O2 Sat by Pulse 100 Oximetry Disposition Clinical Impression: Nausea, Opiate withdrawal Disposition: HOME SELF-CARE Condition: Stable Instructions (If sedation given, give patient instructions): Acute Nausea and Vomiting (ED) Additional Instructions: Please follow-up with primary care physician tomorrow. Return for difficulty in breathing, fevers, worsening or change in symptoms or other concerns. Prescription sent to [facility] on . Prescriptions: Ondansetron Odt [Zofran Odt] 4 mg PO Q8HR PRN #10 tab PRN Reason: Nausea Is patient prescribed a controlled substance at d/c from ED?: No Referrals: [facility] [Primary Care Provider] - 1-2 days Time of Disposition: 09:29
== END 2019-10-18 09:58 | disposition home or self-care (01) ==
LOC: EC 08:55
DX: F11.23 Opioid dependence with withdrawal (principal); R11.0 Nausea; F17.200 Nicotine dependence, unspecified, uncomplicated; Z87.39 Personal history of other diseases of the musculoskeletal system and connective tissue; Z11.59 Encounter for screening for other viral diseases
CPT/HCPCS: 99283; U0003

== ENCOUNTER → 2020-07-20 | Outpatient (CLI) | payer OTHER ==
--- NOTE | 2020-07-20 13:08 | XR ---
EXAMINATION TYPE: XR chest 2V DATE OF EXAM: 07/20/2020 COMPARISON: Chest x-ray 09/28/2018 HISTORY: Chest pain TECHNIQUE: Frontal and lateral views of the chest are obtained. FINDINGS: There is a bandlike area of increased attenuation right midlung which is developed in the interval and may represent atelectasis or scar. No evident pneumothorax or pleural effusion. Cardiac mediastinal silhouette is stable. IMPRESSION: Possible atelectasis or scar right mid lung. Follow-up suggested as indicated.
== END ==
LOC: RADXRMAIN 09:18
PROVIDERS: ATTEND Nurse Practitioner
DX: R07.9 Chest pain, unspecified (principal)
CPT/HCPCS: 71046

== ENCOUNTER 2020-08-04 08:40 | Emergency (ER) | payer OTHER ==
[2020-08-04 08:50] VITALS: RESP 18; TEMP 98.6
[2020-08-04] MEDS ORDERED: AMPICILLIN-SULBACTAM 3 GM in SODIUM CHLORIDE 0.9% 100 ML IVPB STA (09:21)
[2020-08-04 09:38] LABS: Basophils % (A) 1 %; Eosinophils # (A) 0.3 k/uL (0-0.7); Eosinophils % (A) 4 %; HCT 39.4 % (39.0-53.0); Lymphocytes # (A) 1.2 k/uL (1.0-4.8); Lymphocytes % (A) 13 %; MCH 30.3 pg (25.0-35.0); MCHC 32.9 g/dL (31.0-37.0); MCV 91.9 fL (80.0-100.0); Mean Platelet Volume 7.1; Monocytes # (A) 0.6 k/uL (0-1.0); Monocytes % (A) 7 %; Neutrophils # (A) 6.8 k/uL (1.3-7.7); Neutrophils % (A) 75 %; Platelet Count 271 k/uL (150-450); RBC 4.28 m/uL (4.30-5.90); RDW 14.1 % (11.5-15.5); WBC 9.1 k/uL (3.8-10.6)
--- NOTE | 2020-08-04 09:51 | XR ---
EXAMINATION TYPE: XR foot complete RT DATE OF EXAM: 08/04/2020 CLINICAL HISTORY: pain TECHNIQUE: Frontal, lateral and oblique images of the right foot are obtained. COMPARISON: None. FINDINGS: There is no acute fracture/dislocation evident. The joint spaces appear within normal chandler its. The overlying soft tissue appears unremarkable. IMPRESSION: There is no acute fracture or dislocation. ICD 10 NO FRACTURE, INITIAL EVALUATION
[2020-08-04 10:03] LABS: ALT 9 U/L (4-49); AST 23 U/L (17-59); African American GFR (CKD) >90 (>60 ml/min/1.73 sqM); Albumin 3.8 g/dL (3.5-5.0); Blood Urea Nitrogen 14 mg/dL (9-20); Total Bilirubin 1.5 mg/dL (0.2-1.3); Total Protein 6.7 g/dL (6.3-8.2)
[2020-08-04 10:30] LABS: Alkaline Phosphatase 46 U/L (38-126); Anion Gap 4 mmol/L; Calcium 9.2 mg/dL (8.4-10.2); Carbon Dioxide 30 mmol/L (22-30); Chloride 102 mmol/L (98-107); Glucose 109 mg/dL (74-99); Non-African American GFR(CKD) 83 (>60 ml/min/1.73 sqM); Potassium 4.6 mmol/L (3.5-5.1); Sodium 136 mmol/L (137-145)
[2020-08-04] MEDS ORDERED: FUROSEMIDE 10 MG/ML 4 ML VIAL IV STA (10:46)
--- NOTE | 2020-08-04 11:18 | ED ---
Extremity Problem HPI - General Chief complaint: Extremity Problem,Nontraumatic Stated complaint: Swollen Feet Source: patient Mode of arrival: wheelchair Limitations: no limitations - History of Present Illness Initial comments: Patient is a 40-year-old male presents emergency Department with reported bilateral lower externally redness and swelling. Patient states that he has had a history of similar in the past. He was diagnosed with cellulitis. He was placed on oral antibiotics however his symptoms did not improve and therefore he required hospital admission. Denies history of MRSA. States that he did fall 2 days ago twisting his right foot and sustained a cut on the top of his foot. Patient has been able to ambulate. He did develop significant swelling and re dness. States he's been elevating his feet with some improvement in the swelling however the redness has continued. He denies any fevers or chills. No nausea or vomiting. No numbness, tingling or weakness in the lower extremities. Denies history of heart failure. No shortness of breath or chest pain. No other alleviating, car electronics installer mopping factors - Related Data Home Medications Medication Instructions Recorded Confirmed Omeprazole [PriLOSEC] 20 mg PO AC-BID 09/02/17 01/14/19 Gabapentin 800 mg PO BID 01/14/19 01/14/19 HYDROcodone/APAP 7.5-325MG [[place] 1 tab PO BID PRN 01/14/19 01/14/19 7.5-325] Previous Rx's Medication Instructions Recorded Cephalexin [Keflex] 500 mg PO Q8HR #21 cap 01/16/19 Ondansetron Odt [Zofran Odt] 4 mg PO Q8HR PRN #10 tab 10/18/19 Cephalexin [Keflex] 500 mg PO Q6HR #28 cap 08/04/20 Cephalexin [Keflex] 500 mg PO Q6HR 1 Days #28 cap 08/04/20 Furosemide [Lasix] 20 mg PO DAILY #10 tab 08/04/20 Furosemide [Lasix] 20 mg PO DAILY #7 tab 08/04/20 Allergies Allergy/AdvReac Type Severity Reaction Status Date / Time methylphenidate HCl Allergy Rash/Hives Verified 08/04/20 09:04 [From Ritalin] venom-honey bee Allergy Rash/Hives Verified 08/04/20 09:04 [bee venom (honey bee)] Review of Systems ROS Statement: Those systems with pertinent positive or pertinent negative responses have been documented in the HPI. ROS Other: All systems not noted in ROS Statement are negative. Past Medical History Past Medical History: Asthma, Pneumonia Additional Past Medical History / Comment(s): Herniated disc in back, chronic back pain. History of Any Multi-Drug Resistant Organisms: None Reported Past Surgical History: No Surgical Hx Reported Additional Past Surgical History / Comment(s): SURGERY ON URETHRAL OPENING A CHILD, back injections. Past Anesthesia/Blood Transfusion Reactions: No Reported Reaction Past Psychological History: ADD/ADHD, Anxiety, Bipolar Smoking Status: Current every day smoker Past Alcohol Use History: None Reported Past Drug Use History: Marijuana - Past Family History Father History Unknown: Yes mother Family Medical History: Diabetes Mellitus, Hypertension General Exam Limitations: no limitations Course Vital Signs 08/04/20 08/04/20 08:44 11:36 Temperature 98.6 F 98.6 F Pulse Rate 91 74 Respiratory 18 18 Rate Blood Pressure 126/77 132/99 O2 Sat by Pulse 95 95 Oximetry Medical Decision Making - Medical Decision Making Upon arrival patient is placed in room 10. A thorough history and physical exam was performed. IV is established. Blood cultures are obtained. Laboratory studies are conducted the patient was given a dose of Unasyn. X-rays performed of the patient's right foot. Laboratory studies are reviewed. BNP mildly elevated at 822 however patient has no complaints of shortness of breath. X-ray demonstrates no acute fractures. Patient is reevaluated and does have improvement in the redness in his lower extremities after 1 dose of Unasyn. At this time the patient will be placed on Keflex in the outpatient setting. He is to follow up with his primary care doctor in 2-4 days. Does have an appointment with the carbon grinder next week. Patient is instructed that if he has any worse joshua of his cellulitis that he must return for IV antibiotics as he has experienced in the past. Patient is aware of this and understood. He was given written and verbal discharge instructions and discharged home in stable condition - Lab Data Result diagrams: 08/04/20 09:23 08/04/20 09:23 Lab Results 08/04/20 08/04/20 08/04/20 Range/Units 09:23 09:23 09:23 WBC 9.1 (3.8-10.6) k/uL RBC 4.28 L (4.30-5.90) m/uL Hgb 13.0 (13.0-17.5) gm/dL Hct 39.4 (39.0-53.0) % MCV 91.9 (80.0-100.0) fL MCH 30.3 (25.0-35.0) pg MCHC 32.9 (31.0-37.0) g/dL RDW 14.1 (11.5-15.5) % Plt Count 271 (150-450) k/uL MPV 7.1 Neutrophils % 75 % Lymphocytes % 13 % Monocytes % 7 % Eosinophils % 4 % Basophils % 1 % Neutrophils # 6.8 (1.3-7.7) k/uL Lymphocytes # 1.2 (1.0-4.8) k/uL Monocytes # 0.6 (0-1.0) k/uL Eosinophils # 0.3 (0-0.7) k/uL Basophils # 0.0 (0-0.2) k/uL Sodium 136 L (137-145) mmol/L Potassium 4.6 (3.5-5.1) mmol/L Chloride 102 (98-107) mmol/L Carbon Dioxide 30 (22-30) mmol/L Anion Gap 4 mmol/L BUN 14 (9-20) mg/dL Creatinine 1.10 (0.66-1.25) mg/dL Est GFR (CKD-EPI)AfAm >90 (>60 ml/min/1.73 sqM) Est GFR (CKD-EPI)NonAf 83 (>60 ml/min/1.73 sqM) Glucose 109 H (74-99) mg/dL Calcium 9.2 (8.4-10.2) mg/dL Total Bilirubin 1.5 H (0.2-1.3) mg/dL AST 23 (17-59) U/L ALT 9 (4-49) U/L Alkaline Phosphatase 46 (38-126) U/L NT-Pro-B Natriuret Pep 822 pg/mL Total Protein 6.7 (6.3-8.2) g/dL Albumin 3.8 (3.5-5.0) g/dL Disposition Clinical Impression: Cellulitis, Lower extremity edema Disposition: HOME SELF-CARE Condition: Stable Instructions (If sedation given, give patient instructions): Cellulitis (ED) Additional Instructions: Follow-up with your primary care doctor in 2-4 days. Return to the emergency room for any new or worsening symptoms Prescriptions: Cephalexin [Keflex] 500 mg PO Q6HR #28 cap Cephalexin [Keflex] 500 mg PO Q6HR 1 Days #28 cap Furosemide [Lasix] 20 mg PO DAILY #10 tab Furosemide [Lasix] 20 mg PO DAILY #7 tab Is patient prescribed a controlled substance at d/c from ED?: No Referrals: [facility] [Primary Care Provider] - 1-2 days Time of Disposition: 11:17
[2020-08-04 11:43] VITALS: BP 132/99; PULSE 74
== END 2020-08-04 11:43 | disposition home or self-care (01) ==
LOC: EC 08:40
DX: L03.116 Cellulitis of left lower limb (principal); L03.115 Cellulitis of right lower limb; F17.200 Nicotine dependence, unspecified, uncomplicated; Z88.8 Allergy status to other drugs, medicaments and biological substances; Z91.030 Bee allergy status; X50.1XXA Overexertion from prolonged static or awkward postures, initial encounter; W18.30XA Fall on same level, unspecified, initial encounter
CPT/HCPCS: 36415; 83880; 80053; 85025; 87040; 73630; 99283; 96365; 96375; J1940; J0295

== ENCOUNTER 2020-10-31 16:41 | Emergency (ER) | payer OTHER ==
[2020-10-31 16:51] VITALS: BP 120/75; PULSE 84; RESP 16; TEMP 98.3
--- NOTE | 2020-10-31 17:15 | ED ---
Extremity Problem HPI - General Chief complaint: Extremity Problem,Nontraumatic Stated complaint: lump on elbow Source: patient, RN notes reviewed Mode of arrival: ambulatory Limitations: no limitations - History of Present Illness Initial comments: 40-year-old white male patient, presents to the emergency room with complaints of left elbow swelling for one week. Patient denies injury states that it does not hurt 8 stitches soft and boggy and doesn't know what it is. Patient states that he has no fevers, no history of the same. Went to the [facility]'s clinic and was told to come to the emergency room for evaluation. Patient states he does not remember if he fell and hit his elbow but thinks he should get an x-ray. Patient is at least a pack a day smoker he states and also smokes marijuana. MD Complaint: extremity swelling -: week(s) (1) Location: left, elbow History of Same: No Radiation: none Severity scale (1-10): 0 Consistency: constant Improves with: nothing Worsens with: nothing Associated Symptoms: denies other symptoms - Related Data Home Medications Medication Instructions Recorded Confirmed Omeprazole [PriLOSEC] 20 mg PO AC-BID 09/02/17 01/14/19 Gabapentin 800 mg PO BID 01/14/19 01/14/19 HYDROcodone/APAP 7.5-325MG [[place] 1 tab PO BID PRN 01/14/19 01/14/19 7.5-325] Previous Rx's Medication Instructions Recorded Cephalexin [Keflex] 500 mg PO Q8HR #21 cap 01/16/19 Ondansetron Odt [Zofran Odt] 4 mg PO Q8HR PRN #10 tab 10/18/19 Cephalexin [Keflex] 500 mg PO Q6HR #28 cap 08/04/20 Furosemide [Lasix] 20 mg PO DAILY #10 tab 08/04/20 Furosemide [Lasix] 20 mg PO DAILY #7 tab 08/04/20 cephALEXin [Keflex] 500 mg PO Q6HR 1 Days #28 cap 08/04/20 Allergies Allergy/AdvReac Type Severity Reaction Status Date / Time methylphenidate HCl Allergy Rash/Hives Verified 10/31/20 16:47 [From Ritalin] venom-honey bee Allergy Rash/Hives Verified 10/31/20 16:47 [bee venom (honey bee)] Review of Systems ROS Statement: Those systems with pertinent positive or pertinent negative responses have been documented in the HPI. ROS Other: All systems not noted in ROS Statement are negative. Past Medical History Past Medical History: Asthma, Pneumonia Additional Past Medical History / Comment(s): Herniated disc in back, chronic back pain. History of Any Multi-Drug Resistant Organisms: None Reported Past Surgical History: No Surgical Hx Reported Additional Past Surgical History / Comment(s): SURGERY ON URETHRAL OPENING A CHILD, back injections. Past Anesthesia/Blood Transfusion Reactions: No Reported Reaction Past Psychological History: ADD/ADHD, Anxiety, Bipolar Smoking Status: Current every day smoker Past Alcohol Use History: None Reported Past Drug Use History: Marijuana - Past Family History Father History Unknown: Yes mother Family Medical History: Diabetes Mellitus, Hypertension General Exam Limitations: no limitations General appearance: alert, in no apparent distress Head exam: Present: atraumatic, normocephalic, normal inspection Eye exam: Present: normal appearance, PERRL, EOMI. Absent: scleral icterus, conjunctival injection, periorbital swelling Pupils: Present: normal accommodation ENT exam: Present: normal exam, normal oropharynx, mucous membranes moist Neck exam: Present: normal inspection, full ROM. Absent: tenderness, meningismus, lymphadenopathy, thyromegaly Respiratory exam: Present: normal lung sounds bilaterally. Absent: respiratory distress, rales, rhonchi, stridor, chest wall tenderness, accessory muscle use, decreased breath sounds Cardiovascular Exam: Present: regular rate, normal rhythm, normal heart sounds. Absent: systolic murmur, diastolic murmur, rubs, gallop, clicks GI/Abdominal exam: Present: soft, normal bowel sounds. Absent: distended, tenderness, guarding, rebound, rigid Rectal exam: Present: deferred Extremities exam: Present: normal inspection, full ROM, normal capillary refill, joint swelling (Left elbow bursitis, no erythema). Absent: tenderness, pedal edema, calf tenderness Back exam: Present: normal inspection, full ROM. Absent: tenderness, CVA tenderness (R), CVA tenderness (L), muscle spasm, paraspinal tenderness, vertebral tenderness Neurological exam: Present: alert, oriented X3, CN II-XII intact Psychiatric exam: Present: normal affect, normal mood Skin exam: Present: warm, dry, intact, normal color. Absent: rash Course Vital Signs 10/31/20 16:47 Temperature 98.3 F Pulse Rate 84 Respiratory 16 Rate Blood Pressure 120/75 O2 Sat by Pulse 92 L Oximetry Medical Decision Making - Medical Decision Making X-ray shows no fracture or dislocation. There is olecranon bursitis noted which is consistent with physical exam. There is no pain or tenderness, and patient has full range of motion. Patient will be given an [place] wrap and referred to orthopedics. Patient directed not to wear [place] wrap while sleeping. Case discussed with Dr. Cuadra who is agreeable to this plan of care. Disposition Clinical Impression: Olecranon bursitis, left elbow Disposition: HOME SELF-CARE Condition: Fair Instructions (If sedation given, give patient instructions): Elbow Bursitis (ED) Additional Instructions: Use [place] wrap during the day but do not sleep with [place] wrap in place. Follow-up with orthopedics as referred. Is patient prescribed a controlled substance at d/c from ED?: No Referrals: [facility] [Primary Care Provider] - 1-2 days Arturo Johansen MD [STAFF PHYSICIAN] - 1-2 days Time of Disposition: 18:30
--- NOTE | 2020-10-31 17:50 | XR ---
EXAMINATION TYPE: XR elbow complete LT DATE OF EXAM: 10/31/2020 COMPARISON: NONE HISTORY: Swelling TECHNIQUE: 3 views FINDINGS: There is soft tissue swelling over the olecranon process of the ulna. I see no fracture nor dislocation. There is no sign of elbow joint effusion. Joint spaces are normal. IMPRESSION: Posterior swelling consistent with olecranon bursitis. No fracture.
== END 2020-10-31 18:52 | disposition home or self-care (01) ==
LOC: EC 16:41
DX: M70.22 Olecranon bursitis, left elbow (principal); J45.909 Unspecified asthma, uncomplicated; F31.9 Bipolar disorder, unspecified; F41.9 Anxiety disorder, unspecified; F12.90 Cannabis use, unspecified, uncomplicated; F17.210 Nicotine dependence, cigarettes, uncomplicated
CPT/HCPCS: 99283

== ENCOUNTER → 2021-02-13 | Outpatient (CLI) | payer OTHER ==
--- NOTE | 2021-02-13 09:11 | XR ---
EXAMINATION TYPE: XR toes LT DATE OF EXAM: 02/13/2021 COMPARISON: None HISTORY: Injury to great toe pain and swelling TECHNIQUE: 3 view left great toe FINDINGS: Hallux valgus deformity is present. There is a lucency extending through the distal portion proximal phalanx great toe. Assess somewhat smooth margins. An old nonunion fracture at this locatio n may be present. Correlate for underlying osteomyelitis. There is a small calcification at the first metacarpal phalangeal joint space medially could be a tin y old avulsion. IMPRESSION: 1. There is a large lucency within the distal portion proximal phalanx great toe. Findings appears s uggestive for an old nonunion of a fracture. Clinical consideration for osteomyelitis is recommended. 2. Hallux valgus deformity.
--- NOTE | 2021-02-13 09:13 | XR ---
EXAMINATION TYPE: XR elbow complete RT DATE OF EXAM: 02/13/2021 COMPARISON: None HISTORY: Injury posterior elbow one month prior pain and numbness TECHNIQUE: 3 view right elbow FINDINGS: Radius aligns normally with the humerus. No acute or subacute fractures are evident. Anteri or fat pad is normal. No elevation of posterior fat pad is evident. Soft tissues appear normal. IMPRESSION: 1. No suspicious osseous abnormality.
[2021-02-14 02:34] LABS: Chol/HDL Ratio 2.72 Ratio; HDL Cholesterol 52.5 mg/dL (40.00-60.00); LDL Cholesterol,Calculated 80.2 mg/dL (0.0-131.0); Triglycerides 51.6 mg/dL (0.00-149.00); VLDL Calculation 10.32 mg/dL (5.00-40.00)
== END | disposition home or self-care (01) ==
LOC: RADXRMAIN 08:04
PROVIDERS: ATTEND Internal Medicine Interventional Cardiology
DX: M25.521 Pain in right elbow (principal); M20.12 Hallux valgus (acquired), left foot
CPT/HCPCS: 36415; 80053; 80061; 84450; 84460; 86140

== ENCOUNTER → 2021-02-15 | Outpatient (CLI) | payer OTHER ==
[2021-02-15 19:02] LABS: Basophils # (A) 0.03 X 10*3/uL (0.00-0.10); Basophils % (A) 0.6 %; Eosinophils % (A) 2.1 %; HCT 39.1 % (39.6-50.0); HGB 12.6 g/dL (13.0-17.0); Lymphocytes # (A) 0.96 X 10*3/uL (0.90-5.00); MCH 29.9 pg (27.0-32.0); MCHC 32.2 g/dL (32.0-37.0); MCV 92.9 fL (80.0-97.0); Monocytes # (A) 0.58 X 10*3/uL (0.20-1.00); Monocytes % (A) 12.1 %; Neutrophils # (A) 3.12 X 10*3/uL (1.80-7.70); Platelet Count 192 X 10*3/uL (140-440); RBC 4.21 X 10*6/uL (4.40-5.60); RDW 14.4 % (11.5-14.5)
[2021-02-15 21:53] LABS: Erythrocyte Sedimentation Rate 5 mm/Hr (0-15)
[2021-02-16 02:56] LABS: African American GFR (CKD) 93.8 (60.0-200.0); Albumin 4.3 g/dL (3.8-4.9); Albumin/Globulin Ratio 1.99 (1.60-3.17); Anion Gap 11.8 mmol/L (4.00-12.00); BUN/Creat Ratio 13.15 Ratio (12.00-20.00); Blood Urea Nitrogen 14.6 mg/dL (9.0-27.0); C Reactive Protein, High Sens 4.5 mg/L (0.000-3.000); Carbon Dioxide 26.2 mmol/L (21.6-31.8); Globulin 2.2 g/dL (1.6-3.3); Non-African American GFR(CKD) 80.9 (60.0-200.0); Potassium 4.7 mmol/L (3.5-5.5); Total Bilirubin 0.4 mg/dL (0.30-1.20); Total Protein 6.5 g/dL (6.2-8.2)
== END | disposition home or self-care (01) ==
LOC: LABWHC1 13:28
PROVIDERS: ATTEND Nurse Practitioner
DX: M79.675 Pain in left toe(s) (principal)
CPT/HCPCS: 36415; 80053; 85025; 85652; 86141

== ENCOUNTER 2021-07-14 14:47 | Emergency (ER) | payer OTHER ==
[2021-07-14 15:04] VITALS: TEMP 98.4
--- NOTE | 2021-07-14 15:14 | ED ---
General Adult HPI - General Chief complaint: Head Injury Stated complaint: Head injury Time Seen by Provider: 07/14/21 15:05 Source: patient, RN notes reviewed, old records reviewed Mode of arrival: EMS - History of Present Illness Initial comments: 41-year-old male presenting status post head injury. Patient states was cleaning his bathroom, and fell for hitting tolerate. He had left frontal forehead injury without loss consciousness. He does have some swelling at the site of injury. He denies anticoagulation. He states he took Suboxone earlier for pain. Denies alcohol or illicit drugs. No other injuries reported. - Related Data Home Medications Medication Instructions Recorded Confirmed Omeprazole [PriLOSEC] 20 mg PO BID 09/02/17 07/14/21 Albuterol Sulfate [Proair Hfa] 2 puff INHALATION RT-Q4H PRN 07/14/21 07/14/21 Atorvastatin [Lipitor] 10 mg PO DAILY 07/14/21 07/14/21 Cholecalciferol [Vitamin D3 (125 125 mcg PO DAILY 07/14/21 07/14/21 Mcg = 5000 Iu)] Gabapentin [Neurontin] 300 mg PO Q8H 07/14/21 07/14/21 Montelukast [Singulair] 10 mg PO HS 07/14/21 07/14/21 Nicotine 21Mg/24Hr Patch [Habitrol] 1 patch TRANSDERM DAILY 07/14/21 07/14/21 Ondansetron [Zofran] 4 mg PO BID PRN 07/14/21 07/14/21 diphenhydrAMINE [Benadryl] 50 mg PO HS 07/14/21 07/14/21 oxyCODONE-APAP 7.5-325MG [Percocet 1 tab PO BID 07/14/21 07/14/21 7.5-325 mg] Allergies Allergy/AdvReac Type Severity Reaction Status Date / Time methylphenidate HCl Allergy Rash/Hives Verified 07/14/21 15:45 [From Ritalin] venom-honey bee Allergy Rash/Hives Verified 07/14/21 15:45 [bee venom (honey bee)] Review of Systems ROS Statement: Those systems with pertinent positive or pertinent negative responses have been documented in the HPI. ROS Other: All systems not noted in ROS Statement are negative. Past Medical History Past Medical History: Asthma, Pneumonia Additional Past Medical History / Comment(s): Herniated disc in back, chronic back pain. History of Any Multi-Drug Resistant Organisms: None Reported Past Surgical History: No Surgical Hx Reported Additional Past Surgical History / Comment(s): SURGERY ON URETHRAL OPENING A CHILD, back injections. Past Anesthesia/Blood Transfusion Reactions: No Reported Reaction Past Psychological History: ADD/ADHD, Anxiety, Bipolar Smoking Status: Current every day smoker Past Alcohol Use History: None Reported Past Drug Use History: Marijuana - Past Family History Father History Unknown: Yes mother Family Medical History: Diabetes Mellitus, Hypertension General Exam General appearance: alert, in no apparent distress Head exam: Present: normocephalic. Absent: atraumatic (Left Frontal hematoma no laceration or abrasion) Eye exam: Present: normal appearance, PERRL Neck exam: Present: normal inspection, full ROM. Absent: lymphadenopathy Respiratory exam: Present: normal lung sounds bilaterally, respiratory distress Cardiovascular Exam: Present: regular rate, normal rhythm GI/Abdominal exam: Present: soft. Absent: distended, tenderness, guarding, rebound Extremities exam: Present: normal inspection, normal capillary refill. Absent: pedal edema, calf tenderness Neurological exam: Present: alert, oriented X3, CN II-XII intact. Absent: motor sensory deficit Psychiatric exam: Present: normal affect, normal mood Skin exam: Present: warm, dry, intact. Absent: cyanosis, diaphoretic Course Vital Signs 07/14/21 14:53 Temperature 98.4 F Pulse Rate 69 Respiratory 20 Rate Blood Pressure 127/71 O2 Sat by Pulse 95 Oximetry Medical Decision Making - Medical Decision Making 41-year-old male with head injury. 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 No acute findings. Cervical spine showing degenerative changes without fracture dislocation. Patient will be discharged home at this time. Return parameters discussed. Disposition Clinical Impression: Concussion without loss of consciousness Disposition: HOME SELF-CARE Condition: Good Instructions (If sedation given, give patient instructions): Concussion (ED) Is patient prescribed a controlled substance at d/c from ED?: No Referrals: [facility] [Primary Care Provider] - 1-2 days Time of Disposition: 16:10
--- NOTE | 2021-07-14 16:04 | CT ---
EXAMINATION TYPE: CT brain ninaine wo con DATE OF EXAM: 07/14/2021 COMPARISON: CT brain 06/03/2013 HISTORY: ams, head injury CT DLP: 1375.8 mGycm Automated exposure control for dose reduction was used. Ventricles have normal size. There is no mass effect or midline shift. There is no sign of intracrani al hemorrhage. Calvarium is intact. There is 1.5 cm area of hypodensity left posterior frontal lobe c ortex consistent with an old infarct. The calvarium is intact. There is some frontal hyperostosis. Skull base is intact. There is normal ae ration of the mastoid sinuses. Cervical vertebra show some straightening. There is degenerative disc space mild narrowing and spur f ormation from C3 to C7. Facet joints are intact. There is no compression fracture. IMPRESSION: Cervical multilevel spondylotic changes are moderate in severity in this relatively young patient. No fracture seen. 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
[2021-07-14 16:36] VITALS: BP 118/89; PULSE 63; RESP 18
== END 2021-07-14 16:32 | disposition home or self-care (01) ==
LOC: EC 14:47
DX: S06.0X0A Concussion without loss of consciousness, initial encounter (principal); J45.909 Unspecified asthma, uncomplicated; F90.9 Attention-deficit hyperactivity disorder, unspecified type; F41.9 Anxiety disorder, unspecified; F31.9 Bipolar disorder, unspecified; F17.200 Nicotine dependence, unspecified, uncomplicated; F12.90 Cannabis use, unspecified, uncomplicated; Z88.1 Allergy status to other antibiotic agents; W01.10XA Fall on same level from slipping, tripping and stumbling with subsequent striking against unspecified object, initial encounter
CPT/HCPCS: 70450; 72125; 99284

== ENCOUNTER → 2021-10-30 | Outpatient (CLI) | payer OTHER ==
--- NOTE | 2021-10-30 16:21 | XR ---
EXAMINATION TYPE: XR lumbar spine 2 or 3V DATE OF EXAM: 10/30/2021 COMPARISON: X-ray dated 06/09/2013 INDICATION: Low back pain. TECHNIQUE: 3 views of the lumbar spine. FINDINGS: Preserved lumbar lordosis. No significant anterolisthesis or retrolisthesis. No definite vertebral zana dy collapse or acute displaced fracture. Tiny multilevel opposing endplate osteophytosis. Preserved intervertebral disc spaces. Significant fecal loading of the visualized portion of the colon. Grossly unremarkable sacroiliac rishi nts. IMPRESSION: Mild bony degenerative changes of the lumbar spine as described above. Further MRI assessment can be considered if clinically required.
[2021-10-30 22:32] LABS: Basophils # (A) 0.03 X 10*3/uL (0.00-0.10); Basophils % (A) 0.5 %; Eosinophils # (A) 0.13 X 10*3/uL (0.04-0.35); Eosinophils % (A) 2.2 %; HCT 37.8 % (39.6-50.0); HGB 12.4 g/dL (13.0-17.0); Immature Grans, Automated 0.2 %; Lymphocytes # (A) 1.89 X 10*3/uL (0.90-5.00); Lymphocytes % (A) 31.8 %; MCH 29.8 pg (27.0-32.0); MCHC 32.8 g/dL (32.0-37.0); MCV 90.9 fL (80.0-97.0); Mean Platelet Volume 11.4 fL (9.5-12.2); Monocytes # (A) 0.57 X 10*3/uL (0.20-1.00); Monocytes % (A) 9.6 %; NRBC Per 100 WBC 0 /100 WBCS (0.0-0.0); Neutrophils # (A) 3.31 X 10*3/uL (1.80-7.70); Neutrophils % (A) 55.7 %; Platelet Count 144 X 10*3/uL (140-440); RBC 4.16 X 10*6/uL (4.40-5.60); RDW 14.1 % (11.5-14.5); WBC 5.94 X 10*3/uL (4.50-10.00)
--- NOTE | 2021-10-30 22:44 | XR ---
EXAMINATION TYPE: XR foot complete bilateral DATE OF EXAM: 10/30/2021 COMPARISON: X-ray dated 02/13/2021 INDICATION: Numbness in feet TECHNIQUE: 3 views of each foot FINDINGS: Diffuse osteopenia. Degenerative changes of the right first interphalangeal joint. Chronic fracture o f the head of the left first proximal phalanx. Left hallux valgus. Soft tissue swelling overlying the medial aspects of the first metatarsal heads more on the left side , bursitis cannot be excluded. Osteophytosis of the left first metatarsal head. No definite acute fracture line identified. IMPRESSION: Degenerative changes and chronic findings as described above.
[2021-10-30 23:11] LABS: ALT 11 U/L (10-49); AST 18 U/L (14-35); African American GFR (CKD) 76.7 (60.0-200.0); Albumin 4.3 g/dL (3.8-4.9); Albumin/Globulin Ratio 1.96 (1.60-3.17); Alkaline Phosphatase 53 U/L (41-126); BUN/Creat Ratio 13.28 Ratio (12.00-20.00); Blood Urea Nitrogen 17.4 mg/dL (9.0-27.0); Calcium 9.6 mg/dL (8.7-10.3); Carbon Dioxide 27.6 mmol/L (20.0-27.5); Chloride 103 mmol/L (96-109); Globulin 2.2 g/dL (1.6-3.3); Glucose 87 mg/dL (70-110); Non-African American GFR(CKD) 66.2 (60.0-200.0); Potassium 4.4 mmol/L (3.5-5.5); Sodium 140 mmol/L (135-145); Total Protein 6.5 g/dL (6.2-8.2)
[2021-10-30 23:33] LABS: Chol/HDL Ratio 2.52 Ratio
== END | disposition home or self-care (01) ==
LOC: RADXRMAIN 15:32
PROVIDERS: ATTEND Nurse Practitioner
DX: M47.816 Spondylosis without myelopathy or radiculopathy, lumbar region (principal); S92.411A Displaced fracture of proximal phalanx of right great toe, initial encounter for closed fracture
CPT/HCPCS: 72100; 80053; 80061; 82306; 82607; 83721; 83735; 84443; 85025

== ENCOUNTER 2021-11-29 12:25 | Emergency (ER) | payer OTHER ==
[2021-11-29 12:34] VITALS: TEMP 98
--- NOTE | 2021-11-29 12:51 | ED ---
General Adult HPI - General Chief complaint: Extremity Injury, Lower Stated complaint: feet swelling Time Seen by Provider: 11/29/21 12:30 Source: EMS Mode of arrival: EMS Limitations: no limitations - History of Present Illness Initial comments: 41-year-old male patient presents tearful by EMS. Sent by [facility] for evaluation of right ankle swelling that he noticed today. Denies any injury, denies any pain. Patient states he went to [facility] for withdrawal from his Suboxone which he has not had for one week. He is tearful because he was turned away to have evaluation of his right ankle swelling. Patient denies any chest pain or difficulty in breathing. No calf pain. Pulses are present. He states that he has had leg swelling in the past and with elevation the swelling goes down. He denies any pain. He states that he does have two plantar's warts on the bottom of his right foot and he has been seeing Dr. Bai podiatry for. Patient states that he does smoke 2-3 packs a day. -: days(s) (1) Location: right (ankle) Severity scale (1-10): 0 Associated Symptoms: other (Suboxone withdrawal) - Related Data Home Medications Medication Instructions Recorded Confirmed Omeprazole [PriLOSEC] 20 mg PO BID 09/02/17 07/14/21 Albuterol Sulfate [Proair Hfa] 2 puff INHALATION RT-Q4H PRN 07/14/21 07/14/21 Atorvastatin [Lipitor] 10 mg PO DAILY 07/14/21 07/14/21 Cholecalciferol [Vitamin D3 (125 125 mcg PO DAILY 07/14/21 07/14/21 Mcg = 5000 Iu)] Gabapentin [Neurontin] 300 mg PO Q8H 07/14/21 07/14/21 Montelukast [Singulair] 10 mg PO HS 07/14/21 07/14/21 Nicotine 21Mg/24Hr Patch [Habitrol] 1 patch TRANSDERM DAILY 07/14/21 07/14/21 Ondansetron [Zofran] 4 mg PO BID PRN 07/14/21 07/14/21 diphenhydrAMINE [Benadryl] 50 mg PO HS 07/14/21 07/14/21 oxyCODONE-APAP 7.5-325MG [Percocet 1 tab PO BID 07/14/21 07/14/21 7.5-325 mg] Allergies Allergy/AdvReac Type Severity Reaction Status Date / Time methylphenidate HCl Allergy Rash/Hives Verified 07/14/21 15:45 [From Ritalin] venom-honey bee Allergy Rash/Hives Verified 07/14/21 15:45 [bee venom (honey bee)] Review of Systems ROS Statement: Those systems with pertinent positive or pertinent negative responses have been documented in the HPI. ROS Other: All systems not noted in ROS Statement are negative. Past Medical History Past Medical History: Asthma, Pneumonia Additional Past Medical History / Comment(s): Herniated disc in back, chronic back pain. History of Any Multi-Drug Resistant Organisms: None Reported Past Surgical History: No Surgical Hx Reported Additional Past Surgical History / Comment(s): SURGERY ON URETHRAL OPENING A CHILD, back injections. Past Anesthesia/Blood Transfusion Reactions: No Reported Reaction Past Psychological History: ADD/ADHD, Anxiety, Bipolar Smoking Status: Current every day smoker Past Alcohol Use History: None Reported Past Drug Use History: Marijuana, Prescription Drug Abuse - Past Family History Father History Unknown: Yes mother Family Medical History: Diabetes Mellitus, Hypertension General Exam Limitations: no limitations General appearance: alert, in no apparent distress Head exam: Present: atraumatic, other (Abrasion to the top of his scalp) Eye exam: Present: normal appearance, EOMI. Absent: scleral icterus, conjunctival injection, periorbital swelling ENT exam: Present: mucous membranes moist Neck exam: Present: full ROM. Absent: tenderness, meningismus Respiratory exam: Present: normal lung sounds bilaterally. Absent: respiratory distress, accessory muscle use Cardiovascular Exam: Present: regular rate GI/Abdominal exam: Present: soft. Absent: distended, tenderness Extremities exam: Present: full ROM, normal capillary refill. Absent: tenderness, calf tenderness Right Lower Leg exam: Absent: tenderness, swelling, erythema Ankle exam: Present: swelling. Absent: tenderness Foot/Toe exam: Present: full ROM, swelling (Patient does have 2 plantar warts to his foot). Absent: tenderness Neurovascular tendon exam: Present: no vascular compromise. Absent: abnormal cap refill, extremity cold to touch, pallor, foot drop Gait: observed and normal Back exam: Present: full ROM. Absent: tenderness, CVA tenderness (R), CVA tenderness (L), rash noted Neurological exam: Present: alert, oriented X3, normal gait Psychiatric exam: Present: normal affect, normal mood Skin exam: Present: warm, dry, intact, normal color. Absent: cyanosis, diaphoretic, petechiae, pallor Course Vital Signs 11/29/21 12:28 Temperature 98 F Pulse Rate 71 Respiratory 24 Rate Blood Pressure 138/94 O2 Sat by Pulse 97 Oximetry EKG Findings - EKG Comments: EKG Findings:: Ventricular rate 61, WA interval .257, QRS 0.104, QTC 0.414 Medical Decision Making - Medical Decision Making Patient was seen with similar bilateral lower extremity swelling in July 2020, at that time he was treated with antibiotics for cellulitis. Patient states that he does have chronic leg swelling that resolves with elevation. He states that he has on his feet 10-12 hours a day. He denies any pain or discomfort, negative Homans sign. Positive pedal pulses. There are some pigmentation changes consistent with chronic venous insufficiency. There are some abrasions to bilateral lower extremities that the patient states from hitting the wood on his bed. He was referred to follow up with his primary care doctor. He'll be cleared for discharge so that he can return to [facility] for Suboxone withdrawal.. Disposition Clinical Impression: Swelling of right lower extremity Disposition: HOME SELF-CARE Condition: Good Instructions (If sedation given, give patient instructions): Swollen Ankle Joint (ED) Additional Instructions: You can try wearing compression socks and elevate legs. Increase exercise. Follow-up with your primary care doctor next week for continuation of care. Return to [facility] for withdrawal from Suboxone, they are willing to see you. Is patient prescribed a controlled substance at d/c from ED?: No Referrals: None,Stated [Primary Care Provider] - 1-2 days Time of Disposition: 12:59
[2021-11-29 13:07] LABS: Glucose,Whole Blood 84 mg/dL (70-110)
[2021-11-29 13:54] VITALS: BP 132/84; PULSE 72; RESP 18
== END 2021-11-29 13:55 | disposition home or self-care (01) ==
LOC: EC 12:25
DX: S80.812A Abrasion, left lower leg, initial encounter (principal); S80.811A Abrasion, right lower leg, initial encounter; S00.01XA Abrasion of scalp, initial encounter; M79.89 Other specified soft tissue disorders; B07.0 Plantar wart; F11.23 Opioid dependence with withdrawal; J45.909 Unspecified asthma, uncomplicated; F17.200 Nicotine dependence, unspecified, uncomplicated; Z79.51 Long term (current) use of inhaled steroids; Z88.9 Allergy status to unspecified drugs, medicaments and biological substances; Z91.030 Bee allergy status; W22.03XA Walked into furniture, initial encounter
CPT/HCPCS: 36415; 93005; 99284

== ENCOUNTER → 2022-01-10 | Outpatient (CLI) | payer OTHER ==
--- NOTE | 2022-01-10 14:54 | XR ---
EXAMINATION TYPE: XR forearm LT DATE OF EXAM: 01/10/2022 2:40 PM INDICATION: Patient age:Male; 41 years old; Reason for study: T14.8XXA Injury; [facility]. COMPARISON: None TECHNIQUE: The left forearm was examined in AP and lateral projections. FINDINGS: No acute osseous pathology or joint dislocations are seen. Subtle soft tissue prominence a long the distal radius posteriorly. No aggressive osseous lesion. No radiopaque foreign bodies. IMPRESSION: 1. No acute fracture. 2. Subtle soft tissue prominence along the distal radius which may represent patient's palpable abno rmality. This can be further evaluated with ultrasound as clinically indicated.
== END | disposition home or self-care (01) ==
LOC: RADXRMAIN 14:18
PROVIDERS: ATTEND Family Medicine
DX: T14.8XXA Other injury of unspecified body region, initial encounter (principal); X58.XXXA Exposure to other specified factors, initial encounter

== ENCOUNTER → 2022-01-31 | Outpatient (CLI) | payer OTHER ==
--- NOTE | 2022-01-31 19:46 | US ---
EXAMINATION TYPE: US extremity nonvasc mass LT DATE OF EXAM: 01/31/2022 COMPARISON: Radiograph 01/10/2022 CLINICAL HISTORY: 42-year-old male M79.602 PAIN IN LT ARM. Hearing Instrument Specialist notes: The patient had slammed left arm down on surface with persisting pain with soft tissue swelling within the left mid anterior forearm (slightly puffy and measuring about 6 cm in length), patient also stated vein felt abnormal at the left wrist. Additional focal "blue" area more distally. All three areas were scanned. FINDINGS: As below. IMPRESSION: Scanned over all three areas of the patient's stated concerns. 1. At the mid anterior left forearm, scanned over soft tissue swelling, no abnormality seen by ultra sound. 2. Scanned over the vein that felt different per patient at the wrist. At the area directed by the p atient, there was a superficial vein that doesn't fill or compress fully. Findings suggests short seg ment SVT. 3. Along the most distal "blue" area of concern, the radial artery travels superficially before divin g down again. This corresponds with the pt's area of concern.
== END | disposition home or self-care (01) ==
LOC: RADUSWWP 14:48
PROVIDERS: ATTEND Family Medicine
DX: M79.602 Pain in left arm (principal)

== ENCOUNTER → 2023-04-29 | Outpatient (CLI) | payer OTHER ==
[2023-04-29 16:38] LABS: Chol/HDL Ratio 2.46 Ratio
--- NOTE | 2023-05-05 23:47 | CT ---
EXAMINATION TYPE: CT angio chest CT DLP: 386.5 mGycm, Automated exposure control for dose reduction was used. DATE OF EXAM: 04/29/2023 10:08 AM COMPARISON: CT chest without contrast 09/03/2017 CLINICAL INDICATION:Male, 43 years old with history of I71.10 aneurysm; f/u thoracic aneurysm TECHNIQUE/CONTRAST: CTA scan of the thorax is performed without and with IV Contrast, patient injected with 100 mL of Iso meka 370, 3-D and MIP images were created on a separate workstation and submitted for review.. FINDINGS: Aorta: No evidence of intramural hematoma. A couple of radiodensities suggesting coarse calcification s are seen at the level of the proximal aorta, just beyond the level of the valve leaflets. There is some limitation by motion blurring; a mildly bulbous appearance of the proximal aorta just beyond the valve leaflets could be due to motion versus true mild dilatation. There is mild fusiform aneurysmal dilatation of the ascending aorta as large as 4.1 cm transverse which appears minimally larger abiel red to prior unenhanced CT in 2018. There is no evidence of dissection flap. Conventional 3 vessel br anch pattern from the arch without significant stenoses. Descending aorta measures 2.3 cm. Pulmonary arteries: Pulmonary arteries show grossly normal enhancement in the limitations of the exam . Pulmonary trunk measures 2.5 cm, within normal limits. Heart: The heart appears normal in size. No significant pericardial effusion or nodularity. Mediastinum: No enlarged mediastinal lymph nodes. The central airways are patent. The visualized thyr oid is grossly unremarkable. Lungs/pleura: No consolidation, pleural effusion, or pneumothorax. MSK: There are mild/moderate degenerative changes of the spine and generalized osteopenia. No clearly acute bony abnormalities. Chest wall: Mild bilateral gynecomastia. No enlarged axillary nodes. Included upper abdomen: No significant abnormality. IMPRESSION: 1. Slightly bulbous appearance of the proximal aorta just beyond the valve leaflets, could be relate d to motion versus true mild dilatation. 2. Fusiform ascending aortic aneurysm measuring up to 4.1 cm diameter. 3. No evidence of aortic dissection or significant atherosclerotic disease.
== END | disposition home or self-care (01) ==
LOC: RADCTMAIN 08:55
PROVIDERS: ATTEND Internal Medicine Interventional Cardiology
DX: I71.21 Aneurysm of the ascending aorta, without rupture (principal)
CPT/HCPCS: 80061; 84443; 82306; 83036; 71275; 36415; Q9967

== ENCOUNTER 2024-04-27 15:27 | Emergency (ER) | payer OTHER ==
--- NOTE | 2024-04-27 15:52 | ED ---
Arrhythmia/Palpitations HPI - General Stated Complaint: AMS Time Seen by Provider: 04/27/24 15:39 - History of Present Illness Initial Comments: This patient is a 44-year-old man who presents to have evaluation for an episode that occurred earlier today. The patient states that he was awakened from sleep with his heart racing, feeling sweaty and nauseated. The patient states that the symptoms reminded him of "precipitated withdrawal" that he has had before. He was concerned however because he was alone and did not want to stay at home should this be a heart problem. Patient relates he had taken his dose of Suboxone then he had gone to sleep. He awoke with the constellation of symptoms, called EMS and came here. Patient states that all the symptoms resolved after he was awake. He now feels at his baseline. MD Complaint: rapid heart beat -: minutes(s) Context: awoke with symptoms Associated Symptoms: nausea/vomiting, anxiety, diaphoresis - Related Data Home Medications Medication Instructions Recorded Confirmed Omeprazole [PriLOSEC] 20 mg PO BID 09/02/17 04/27/24 Albuterol Sulfate [Proair Hfa] 2 puff INHALATION RT-Q4H PRN 07/14/21 04/27/24 Atorvastatin [Lipitor] 10 mg PO DAILY 07/14/21 04/27/24 Cholecalciferol [Vitamin D3 (125 125 mcg PO DAILY 07/14/21 04/27/24 Mcg = 5000 Iu)] Montelukast [Singulair] 10 mg PO HS 07/14/21 04/27/24 Buprenorphine HCl/Naloxone HCl 2 film SL DAILY 04/27/24 04/27/24 [Suboxone 8 mg-2 mg Sl Film] Losartan [Cozaar] 25 mg PO DAILY 04/27/24 04/27/24 Metoprolol Succinate (ER) [Toprol 25 mg PO DAILY 04/27/24 04/27/24 Xl] Allergies Allergy/AdvReac Type Severity Reaction Status Date / Time methylphenidate HCl Allergy Rash/Hives Verified 04/27/24 17:27 [From Ritalin] venom-honey bee Allergy Rash/Hives Verified 04/27/24 17:27 [bee venom (honey bee)] Review of Systems ROS Statement: Those systems with pertinent positive or pertinent negative responses have been documented in the HPI. ROS Other: All systems not noted in ROS Statement are negative. Constitutional: Denies: fever, weakness Respiratory: Reports: dyspnea. Denies: cough, wheezes Cardiovascular: Reports: palpitations. Denies: chest pain, orthopnea, edema, syncope Gastrointestinal: Reports: nausea. Denies: abdominal pain, vomiting, diarrhea, melena, hematochezia Genitourinary: Denies: dysuria, hematuria Musculoskeletal: Denies: back pain Skin: Denies: rash Neurological: Denies: headache, weakness, numbness Psychiatric: Reports: anxiety Past Medical History Past Medical History: Asthma, Pneumonia Additional Past Medical History / Comment(s): Herniated disc in back, chronic back pain. History of Any Multi-Drug Resistant Organisms: None Reported Past Surgical History: No Surgical Hx Reported Additional Past Surgical History / Comment(s): SURGERY ON URETHRAL OPENING A CHILD, back injections. Past Anesthesia/Blood Transfusion Reactions: No Reported Reaction Past Psychological History: ADD/ADHD, Anxiety, Bipolar Smoking Status: Current every day smoker Past Alcohol Use History: None Reported Past Drug Use History: Marijuana, Prescription Drug Abuse - Past Family History Father History Unknown: Yes mother Family Medical History: Diabetes Mellitus, Hypertension General Exam General appearance: alert, in no apparent distress Head exam: Present: atraumatic, normocephalic Eye exam: Present: normal appearance. Absent: scleral icterus, conjunctival injection ENT exam: Present: normal oropharynx Neck exam: Present: normal inspection Respiratory exam: Present: normal lung sounds bilaterally. Absent: respiratory distress, wheezes, rales, rhonchi, stridor Cardiovascular Exam: Present: regular rate, normal rhythm, normal heart sounds. Absent: systolic murmur, diastolic murmur, rubs, gallop GI/Abdominal exam: Present: soft. Absent: distended, tenderness, guarding, rebound, rigid, mass Extremities exam: Present: normal inspection, normal capillary refill. Absent: pedal edema, calf tenderness Back exam: Present: normal inspection. Absent: CVA tenderness (R), CVA tenderness (L) Neurological exam: Present: alert Skin exam: Present: warm, dry, intact, normal color. Absent: rash Course Vital Signs 04/27/24 04/27/24 15:55 18:02 Temperature 98.0 F 98.0 F Pulse Rate 47 L 52 L Respiratory 16 16 Rate Blood Pressure 110/64 123/74 O2 Sat by Pulse 96 94 L Oximetry EKG Findings - EKG Results: EKG: interpreted by ERMD, sinus rhythm (With sinus arrhythmia), normal QRS EKG shows: bradycardia (Rate 45 bpm) - Blocks, Hancock, Hypertrophy, ST Abn: QRS axis and voltage: left axis deviation (-30 to -90) Medical Decision Making - Medical Decision Making The patient had chest x-ray that I interpreted as negative for acute infiltrate, negative for pneumothorax or congestive heart failure Was pt. sent in by a medical professional or institution (, PA, PANTS CUTTER, urgent care, hospital, or [facility]...) When possible be specific @ -[No] Did you speak to anyone other than the patient for history (EMS, parent, family, police, friend...)? What history was obtained from this source @ -[No] Did you review nursing and triage notes (agree or disagree)? Why? @ -[I reviewed and agree with nursing and triage notes] Were old charts reviewed (outside hosp., previous admission, EMS record, old EK G, old radiological studies, urgent care reports/EKG's, [facility] records)? Report findings @ -[No old charts were reviewed] Differential Diagnosis (chest pain, altered mental status, abdominal pain women, abdominal pain men, vaginal bleeding, weakness, fever, dyspnea, syncope, headache, dizziness, GI bleed, back pain, seizure, CVA, palpatations, mental health, musculoskeletal)? @ -[Differential Palpitations Ventricular arrhythmias, atrial arrhythmias, myocardial infarction, anemia, thyrotoxicosis, electrolyte imbalance, hypokalemia, pulmonary embolism, pulmonary disease, drugs, alcohol, anxiety, stress.... This is not meant to be an all-inclusive list. EKG interpreted by me (3pts min.). @ -[I interpreted as above X-rays interpreted by me (1pt min.). @ -[I interpreted as above CT interpreted by me (1pt min.). @ -[None done] U/S interpreted by me (1pt. min.). @ -[None done] What testing was considered but not performed or refused? (CT, X-rays, U/S, labs)? Why? @ -[None] What meds were considered but not given or refused? Why? @ -[None] Did you discuss the management of the patient with other professionals (professionals i.e. , PA, PANTS CUTTER, lab, RT, psych nurse, manager social media, document controller, teacher, command center officer, director case)? Give summary @ -[No] Was smoking cessation discussed for >3mins.? @ -[No] Was critical care preformed (if so, how long)? @ -[No] Were there social determinants of health that impacted care today? How? (Homelessness, low income, unemployed, alcoholism, drug addiction, transportation, low edu. Level, literacy, decrease access to med. care, senior living, rehab)? @ -[No] Was there de-escalation of care discussed even if they declined (Discuss DNR or withdrawal of care, Hospice)? DNR status @ -[No] What co-morbidities impacted this encounter? (DM, HTN, Smoking, COPD, CAD, Cancer, CVA, ARF, Chemo, Hep., AIDS, mental health diagnosis, sleep apnea, morbid obesity)? @ -[None] Was patient admitted / discharged? Hospital course, mention meds given and route, prescriptions, significant lab abnormalities, going to OR and other pertinent info. @ -[Patient is 44-year-old man who eloped constellation of symptoms after taking his Suboxone. The patient's symptoms have resolved and he does appear clinically well. Recommend sleep study if the patient has any further episodes. We discussed appropriate further care and follow-up as well as return p arameters. Undiagnosed new problem with uncertain prognosis? @ -[No] Drug Therapy requiring intensive monitoring for toxicity (Heparin, Nitro, Insulin, Cardizem)? @ -[No] Were any procedures done? @ -[No] Diagnosis/symptom? @ -[Acute palpitations Acute, or Chronic, or Acute on Chronic? @ -[Acute Uncomplicated (without systemic symptoms) or Complicated (systemic symptoms)? @ -[Uncomplicated Side effects of treatment? @ -[No] Exacerbation, Progression, or Severe Exacerbation? @ -[No] Poses a threat to life or bodily function? How? (Chest pain, [place], [place], pneumonia, PE, COPD, DKA, ARF, appy, cholecystitis, CVA, Diverticulitis, Homicidal, Suicidal, threat to staff... and all critical care pts) @ -[No] All treatments are based on ideal body weight as in ED triage - Lab Data Result diagrams: 04/27/24 16:22 04/27/24 16:22 Lab Results 04/27/24 04/27/24 04/27/24 Range/Units 16:22 16:22 16:22 WBC 6.1 (3.8-10.6) k/uL RBC 3.75 L (4.30-5.90) m/uL Hgb 11.9 L (13.0-17.5) gm/dL Hct 36.2 L (39.0-53.0) % MCV 96.6 (80.0-100.0) fL MCH 31.8 (25.0-35.0) pg MCHC 32.9 (31.0-37.0) g/dL RDW 13.7 (11.5-15.5) % Plt Count 181 (150-450) k/uL MPV 7.4 Neutrophils % 75 % Lymphocytes % 16 % Monocytes % 6 % Eosinophils % 2 % Basophils % 1 % Neutrophils # 4.6 (1.3-7.7) k/uL Lymphocytes # 1.0 (1.0-4.8) k/uL Monocytes # 0.4 (0-1.0) k/uL Eosinophils # 0.1 (0-0.7) k/uL Basophils # 0.0 (0-0.2) k/uL Sodium 138 (137-145) mmol/L Potassium 4.4 (3.5-5.1) mmol/L Chloride 104 (98-107) mmol/L Carbon Dioxide 32 H (22-30) mmol/L Anion Gap 2 mmol/L BUN 17 (9-20) mg/dL Creatinine 1.31 H (0.66-1.25) mg/dL Est GFR (CKD-EPI)AfAm 75 (>60 ml/min/1.73 sqM) Est GFR (CKD-EPI)NonAf 65 (>60 ml/min/1.73 sqM) Glucose 102 H (74-99) mg/dL Calcium 9.2 (8.4-10.2) mg/dL Magnesium 2.1 (1.6-2.3) mg/dL Total Bilirubin 1.0 (0.2-1.3) mg/dL AST 20 (17-59) U/L ALT 13 (4-49) U/L Alkaline Phosphatase 75 (38-126) U/L Troponin I <0.012 (0.000-0.034) ng/mL Total Protein 6.1 L (6.3-8.2) g/dL Albumin 4.1 (3.5-5.0) g/dL Disposition Clinical Impression: Palpitations Disposition: HOME SELF-CARE Condition: Good Instructions (If sedation given, give patient instructions): Heart Palpitations (ED) Is patient prescribed a controlled substance at d/c from ED?: No Referrals: Angela Kiser MD [Primary Care Provider] - 1-2 days
[2024-04-27 16:07] VITALS: RESP 16
[2024-04-27 16:32] LABS: Basophils % (A) 1 %; Eosinophils # (A) 0.1 k/uL (0-0.7); Eosinophils % (A) 2 %; HCT 36.2 % (39.0-53.0); HGB 11.9 gm/dL (13.0-17.5); Lymphocytes % (A) 16 %; MCH 31.8 pg (25.0-35.0); MCHC 32.9 g/dL (31.0-37.0); MCV 96.6 fL (80.0-100.0); Mean Platelet Volume 7.4; Monocytes # (A) 0.4 k/uL (0-1.0); Monocytes % (A) 6 %; Neutrophils # (A) 4.6 k/uL (1.3-7.7); Neutrophils % (A) 75 %; Platelet Count 181 k/uL (150-450); RBC 3.75 m/uL (4.30-5.90); RDW 13.7 % (11.5-15.5); WBC 6.1 k/uL (3.8-10.6)
--- NOTE | 2024-04-27 16:39 | XR ---
EXAMINATION TYPE: XR chest 2V DATE OF EXAM: 04/27/2024 4:32 PM COMPARISON: Prior chest radiograph 07/20/2020. CLINICAL INDICATION: Male, 44 years old with history of dysrhythmia; [facility] TECHNIQUE: XR chest 2V Frontal and lateral views of the chest. FINDINGS: Lungs/Pleura: There is no evidence of pleural effusion, focal consolidation, or pneumothorax. Pulmonary vascularity: Unremarkable. Heart/mediastinum: Cardiomediastinal silhouette is unremarkable. Musculoskeletal: No acute osseous pathology. Other findings: None IMPRESSION: No acute cardiopulmonary disease/process. [facility], , 04/27/2024 4:37 PM
[2024-04-27 16:44] LABS: ALT 13 U/L (4-49); AST 20 U/L (17-59); African American GFR (CKD) 75 (>60 ml/min/1.73 sqM); Albumin 4.1 g/dL (3.5-5.0); Alkaline Phosphatase 75 U/L (38-126); Anion Gap 2 mmol/L; Blood Urea Nitrogen 17 mg/dL (9-20); Calcium 9.2 mg/dL (8.4-10.2); Carbon Dioxide 32 mmol/L (22-30); Chloride 104 mmol/L (98-107); Glucose 102 mg/dL (74-99); Magnesium 2.1 mg/dL (1.6-2.3); Non-African American GFR(CKD) 65 (>60 ml/min/1.73 sqM); Potassium 4.4 mmol/L (3.5-5.1); Sodium 138 mmol/L (137-145); Total Protein 6.1 g/dL (6.3-8.2)
[2024-04-27 17:03] VITALS: TEMP 98
[2024-04-27 18:10] VITALS: BP 123/74; PULSE 52
== END 2024-04-27 18:13 | disposition home or self-care (01) ==
LOC: EC 15:27
DX: R00.2 Palpitations (principal); R00.1 Bradycardia, unspecified; F17.200 Nicotine dependence, unspecified, uncomplicated; Z91.030 Bee allergy status; Z88.8 Allergy status to other drugs, medicaments and biological substances
CPT/HCPCS: 36415; 71046; 80053; 83735; 84484; 85025; 93005; 99285

== ENCOUNTER 2024-05-21 11:18 | Inpatient (IN) | payer OTHER ==
[2024-05-21 11:55] LABS: Basophils % (A) 0 %; Eosinophils # (A) 0.1 k/uL (0-0.7); Eosinophils % (A) 1 %; HCT 39.1 % (39.0-53.0); HGB 12.8 gm/dL (13.0-17.5); Lymphocytes # (A) 0.9 k/uL (1.0-4.8); Lymphocytes % (A) 9 %; MCH 31.2 pg (25.0-35.0); MCHC 32.7 g/dL (31.0-37.0); MCV 95.4 fL (80.0-100.0); Mean Platelet Volume 8.2; Monocytes # (A) 0.9 k/uL (0-1.0); Monocytes % (A) 9 %; Neutrophils # (A) 7.6 k/uL (1.3-7.7); Neutrophils % (A) 79 %; Platelet Count 193 k/uL (150-450); RDW 12.9 % (11.5-15.5); WBC 9.6 k/uL (3.8-10.6)
[2024-05-21] MEDS: cefTRIAXone IN SWFI 1,000 MG/10 ML SYRINGE IVP STA (12:05)
[2024-05-21 12:06] LABS: ALT 15 U/L (4-49); African American GFR (CKD) >90 (>60 ml/min/1.73 sqM); Albumin 3.9 g/dL (3.5-5.0); Anion Gap 10 mmol/L; Blood Urea Nitrogen 18 mg/dL (9-20); Calcium 9.3 mg/dL (8.4-10.2); Carbon Dioxide 26 mmol/L (22-30); Chloride 100 mmol/L (98-107); Non-African American GFR(CKD) 82 (>60 ml/min/1.73 sqM); Potassium 4.1 mmol/L (3.5-5.1); Sodium 136 mmol/L (137-145); Total Bilirubin 1.6 mg/dL (0.2-1.3); Total Protein 6.4 g/dL (6.3-8.2)
[2024-05-21] MEDS: methylPREDNISolone SOD SUCCI 125 MG/2 ML VIAL IV STA (12:06)
[2024-05-21] MEDS: IBUPROFEN 600 MG TAB PO STA (12:07)
[2024-05-21] MEDS: ACETAMINOPHEN TAB 500 MG TAB PO STA (12:08)
[2024-05-21 12:12] LABS: INR 1.2 (<1.2); Partial Thromboplastin Time 26.9 sec (22.0-30.0); Prothrombin Time 12.8 sec (10.0-12.5)
--- NOTE | 2024-05-21 12:24 | ED ---
General Adult HPI - General Chief complaint: Shortness of Breath Stated complaint: DIF Time Seen by Provider: 05/21/24 11:30 Source: patient, RN notes reviewed, old records reviewed Mode of arrival: EMS Limitations: no limitations - History of Present Illness Initial comments: This is a 44-year-old male who presents to the emergency department complaining of difficulty breathing for the last 3 days. Patient states he has been coughing quite a bit as well. Patient denies any chest pain or palpitations. Patient does not know if he has a fever or not. Patient denies any abdominal pain. Patient denies any nausea vomiting diarrhea. Patient states he always has some swelling to the legs that is unchanged. - Related Data Home Medications Medication Instructions Recorded Confirmed Albuterol Sulfate [Proair Hfa] 1 puff INHALATION RT-Q4H PRN 07/14/21 05/21/24 Atorvastatin [Lipitor] 10 mg PO DAILY@0800 07/14/21 05/21/24 Cholecalciferol [Vitamin D3 (125 125 mcg PO DAILY@0800 07/14/21 05/21/24 Mcg = 5000 Iu)] Buprenorphine HCl/Naloxone HCl 1 film SL BID@0800,1600 04/27/24 05/21/24 [Suboxone 8 mg-2 mg Sl Film] Losartan [Cozaar] 25 mg PO DAILY@1700 04/27/24 05/21/24 Metoprolol Succinate (ER) [Toprol 25 mg PO DAILY@1700 04/27/24 05/21/24 Xl] Allergies Allergy/AdvReac Type Severity Reaction Status Date / Time methylphenidate HCl Allergy Rash/Hives Verified 05/21/24 13:56 [From Ritalin] venom-honey bee Allergy Rash/Hives Verified 05/21/24 13:56 [bee venom (honey bee)] Review of Systems ROS Statement: Those systems with pertinent positive or pertinent negative responses have been documented in the HPI. ROS Other: All systems not noted in ROS Statement are negative. Past Medical History Past Medical History: Asthma, Pneumonia Additional Past Medical History / Comment(s): Herniated disc in back, chronic back pain. History of Any Multi-Drug Resistant Organisms: None Reported Past Surgical History: No Surgical Hx Reported Additional Past Surgical History / Comment(s): SURGERY ON URETHRAL OPENING A CHILD, back injections. Past Anesthesia/Blood Transfusion Reactions: No Reported Reaction Past Psychological History: ADD/ADHD, Anxiety, Bipolar Smoking Status: Current every day smoker Past Alcohol Use History: None Reported Past Drug Use History: Marijuana, Prescription Drug Abuse - Past Family History Father History Unknown: Yes mother Family Medical History: Diabetes Mellitus, Hypertension General Exam - General Exam Comments Initial Comments: GENERAL: Patient is well-developed and well-nourished. Patient is nontoxic and well-h ydrated and is in mild distress. ENT: Neck is soft and supple. No significant lymphadenopathy is noted. Oropharynx is clear. Moist mucous membranes. Neck has full range of motion without eliciting any pain. EYES: The sclera were anicteric and conjunctiva were pink and moist. Extraocular mov ements were intact and pupils were equal round and reactive to light. Eyelids were unremarkable. PULMONARY: Patient has expiratory wheezing CARDIOVASCULAR: There is a regular rate and rhythm without any murmurs gallops or rubs. ABDOMEN: Soft and nontender with normal bowel sounds. SKIN: Skin is clear with no lesions or rashes and otherwise unremarkable. NEUROLOGIC: Patient is alert and oriented x3. Cranial nerves II through XII are grossly intact. Motor and sensory are also intact. Normal speech, volume and content. Symmetrical smile. MUSCULOSKELETAL: Normal extremities with adequate strength and full range of motion. 1+ edema LYMPHATICS: No significant lymphadenopathy is noted PSYCHIATRIC: Normal psychiatric evaluation. Limitations: no limitations Course Vital Signs 05/21/24 05/21/24 05/21/24 11:20 11:42 12:14 Temperature 101.7 F H Pulse Rate 92 90 68 Respiratory 18 16 16 Rate Blood Pressure 118/79 111/73 104/79 O2 Sat by Pulse 79 L 92 L 91 L Oximetry 05/21/24 05/21/24 05/21/24 12:26 12:43 12:53 Temperature Pulse Rate 92 80 Respiratory 17 Rate Blood Pressure O2 Sat by Pulse Oximetry 05/21/24 13:53 Temperature 99.3 F Pulse Rate 81 Respiratory 15 Rate Blood Pressure 107/59 O2 Sat by Pulse 90 L Oximetry Medical Decision Making - Medical Decision Making EKG is interpreted by myself. EKG shows 64 bpm sinus rhythm OH interval is 235 QRS is 104 QT interval 388 QTc is 397. Patient's EKG shows no ST segment elevation or depression Was pt. sent in by a medical professional or institution (, PA, BILINGUAL SALES ASSISTANT, urgent care, hospital, or halfway...) When possible be specific @ -No Did you speak to anyone other than the patient for history (EMS, parent, family, police, friend...)? What history was obtained from this source @ -No Did you review nursing and triage notes (agree or disagree)? Why? @ -I reviewed and agree with nursing and triage notes Were old charts reviewed (outside hosp., previous admission, EMS record, old EKG, old radiological studies, urgent care reports/EKG's, halfway records)? Report findings @ -No old charts were reviewed Differential Diagnosis? @ -Differential Dyspnea: Coronary syndrome, arrhythmia, tamponade, asthma, COPD, pulmonary embolism, pneumonia, pneumothorax, pulmonary effusion, anaphylaxis, diabetic ketoacidosis, flailed chest, pulmonary contusion, diaphragmatic rupture, anemia, neuromuscular, this is not meant to be an all-inclusive list. EKG interpreted by me (3pts min.). @ -As above X-rays interpreted by me (1pt min.). @ -X-ray shows pulmonary edema CT interpreted by me (1pt min.). @ -None done U/S interpreted by me (1pt. min.). @ -None done What testing was considered but not performed or refused? (CT, X-rays, U/S, labs)? Why? @ -None What meds were considered but not given or refused? Why? @ -None Did you discuss the management of the patient with other professionals (professionals i.e. DEBORAH Nicole, BILINGUAL SALES ASSISTANT, lab, RT, psych nurse, social and human services assistant, cardiac surgeon, teacher, chief mechanical officer, shoe caser)? Give summary @ -I spoke with Dr. Cope from [facility] and he agreed to admit the patient Was smoking cessation discussed for >3mins.? @ -No Was critical care preformed (if so, how long)? @ -35 minutes patient was oxygenating at 88% on room air prior to Lasix Were there social determinants of health that impacted care today? How? (Homelessness, low income, unemployed, alcoholism, drug addiction, transportation, low edu. Level, literacy, decrease access to med. care, half-way, r ehab)? @ -No Was there de-escalation of care discussed even if they declined (Discuss DNR or withdrawal of care, Hospice)? DNR status @ -No What co-morbidities impacted this encounter? (DM, HTN, Smoking, COPD, CAD, Cancer, CVA, ARF, Chemo, Hep., AIDS, mental health diagnosis, sleep apnea, morbid obesity)? @ -None Was patient admitted / discharged? Hospital course, mention meds given and route, prescriptions, significant lab abnormalities, going to OR and other pertinent info. @ -Patient's oxygenation was low patient was put on a few liters of oxygen. Patient's x-ray showed pulmonary edema start the patient on Lasix. Patient did have a temperature there was no obvious pneumonia. I am awaiting viral swab results. I spoke with [facility] hospitalist they agreed to admit the patient admit the patient wrote admitting orders Undiagnosed new problem with uncertain prognosis? @ -No Drug Therapy requiring intensive monitoring for toxicity (Heparin, Nitro, Insulin, Cardizem)? @ -No Were any procedures done? @ -No Diagnosis/symptom? @ -Acute pulmonary edema Acute, or Chronic, or Acute on Chronic? @ -Acute Uncomplicated (without systemic symptoms) or Complicated (systemic symptoms)? @ -Complicated Side effects of treatment? @ -No Exacerbation, Progression, or Severe Exacerbation? @ -No Poses a threat to life or bodily function? How? (Chest pain, [place], [place], pneumonia, PE, COPD, DKA, ARF, appy, cholecystitis, CVA, Diverticulitis, Homicidal, Suicidal, threat to staff... and all critical care pts) @ -Yes this can lead to hypoxia and endorgan dysfunction - Lab Data Result diagrams: 05/21/24 11:29 05/21/24 11:29 Lab Results 05/21/24 05/21/24 05/21/24 Range/Units 11:29 11:29 11:29 WBC 9.6 (3.8-10.6) k/uL RBC 4.10 L (4.30-5.90) m/uL Hgb 12.8 L (13.0-17.5) gm/dL Hct 39.1 (39.0-53.0) % MCV 95.4 (80.0-100.0) fL MCH 31.2 (25.0-35.0) pg MCHC 32.7 (31.0-37.0) g/dL RDW 12.9 (11.5-15.5) % Plt Count 193 (150-450) k/uL MPV 8.2 Neutrophils % 79 % Lymphocytes % 9 % Monocytes % 9 % Eosinophils % 1 % Basophils % 0 % Neutrophils # 7.6 (1.3-7.7) k/uL Lymphocytes # 0.9 L (1.0-4.8) k/uL Monocytes # 0.9 (0-1.0) k/uL Eosinophils # 0.1 (0-0.7) k/uL Basophils # 0.0 (0-0.2) k/uL PT 12.8 H (10.0-12.5) sec INR 1.2 H (<1.2) APTT 26.9 (22.0-30.0) sec Sodium 136 L (137-145) mmol/L Potassium 4.1 (3.5-5.1) mmol/L Chloride 100 (98-107) mmol/L Carbon Dioxide 26 (22-30) mmol/L Anion Gap 10 mmol/L BUN 18 (9-20) mg/dL Creatinine 1.08 (0.66-1.25) mg/dL Est GFR (CKD-EPI)AfAm >90 (>60 ml/min/1.73 sqM) Est GFR (CKD-EPI)NonAf 82 (>60 ml/min/1.73 sqM) Glucose 115 H (74-99) mg/dL Plasma Lactic Acid Bhavik (0.7-2.0) mmol/L Calcium 9.3 (8.4-10.2) mg/dL Magnesium 1.9 (1.6-2.3) mg/dL Total Bilirubin 1.6 H (0.2-1.3) mg/dL AST 23 (17-59) U/L ALT 15 (4-49) U/L Alkaline Phosphatase 53 (38-126) U/L Troponin I (0.000-0.034) ng/mL NT-Pro-B Natriuret Pep pg/mL Total Protein 6.4 (6.3-8.2) g/dL Albumin 3.9 (3.5-5.0) g/dL 05/21/24 05/21/24 05/21/24 Range/Units 11:29 11:29 14:03 WBC (3.8-10.6) k/uL RBC (4.30-5.90) m/uL Hgb (13.0-17.5) gm/dL Hct (39.0-53.0) % MCV (80.0-100.0) fL MCH (25.0-35.0) pg MCHC (31.0-37.0) g/dL RDW (11.5-15.5) % Plt Count (150-450) k/uL MPV Neutrophils % % Lymphocytes % % Monocytes % % Eosinophils % % Basophils % % Neutrophils # (1.3-7.7) k/uL Lymphocytes # (1.0-4.8) k/uL Monocytes # (0-1.0) k/uL Eosinophils # (0-0.7) k/uL Basophils # (0-0.2) k/uL PT (10.0-12.5) sec INR (<1.2) APTT (22.0-30.0) sec Sodium (137-145) mmol/L Potassium (3.5-5.1) mmol/L Chloride (98-107) mmol/L Carbon Dioxide (22-30) mmol/L Anion Gap mmol/L BUN (9-20) mg/dL Creatinine (0.66-1.25) mg/dL Est GFR (CKD-EPI)AfAm (>60 ml/min/1.73 sqM) Est GFR (CKD-EPI)NonAf (>60 ml/min/1.73 sqM) Glucose (74-99) mg/dL Plasma Lactic Acid Bhavik 1.6 (0.7-2.0) mmol/L Calcium (8.4-10.2) mg/dL Magnesium (1.6-2.3) mg/dL Total Bilirubin (0.2-1.3) mg/dL AST (17-59) U/L ALT (4-49) U/L Alkaline Phosphatase (38-126) U/L Troponin I 0.032 (0.000-0.034) ng/mL NT-Pro-B Natriuret Pep 2370 pg/mL Total Protein (6.3-8.2) g/dL Albumin (3.5-5.0) g/dL Disposition Clinical Impression: Acute pulmonary edema Disposition: ADMITTED IP TO THIS HOSP Referrals: Angela Kiser MD [Primary Care Provider] - 1-2 days Time of Disposition: 15:13
[2024-05-21] MEDS: ALBUTEROL NEBULIZED 2.5 MG/3 ML INHALATION STA (12:39)
--- NOTE | 2024-05-21 12:41 | XR ---
EXAMINATION TYPE: XR chest 2V DATE OF EXAM: 05/21/2024 12:36 PM COMPARISON: Chest x-ray April 27, 2024 CLINICAL INDICATION: Male, 44 years old with history of difficulty breathing, TECHNIQUE: Frontal and lateral views of the chest are obtained. FINDINGS: There are new perihilar increased opacities bilaterally. The cardiac silhouette size is w ithin normal limits. The osseous structures are intact. IMPRESSION: New bilateral perihilar acute infiltrates and/or edema. Correlate for fluid overload stat e versus infection. [facility], , 05/21/2024 12:39 PM
[2024-05-21] MEDS: IPRATROPIUM 0.5 MG/2.5 ML NEBU INHALATION STA (12:47)
[2024-05-21 12:50] LABS: AST 23 U/L (17-59); Alkaline Phosphatase 53 U/L (38-126); Glucose 115 mg/dL (74-99); Magnesium 1.9 mg/dL (1.6-2.3)
[2024-05-21] MEDS: FUROSEMIDE 10 MG/ML 4 ML VIAL IV STA (15:09)
[2024-05-21 15:23] LABS: Influenza A Not Detected (Not Detectd); Influenza B Not Detected (Not Detectd); RSV Not Detected (Not Detectd)
[2024-05-21] MEDS: FUROSEMIDE 10 MG/ML 4 ML VIAL IV SCH (22:31)
[2024-05-22] MEDS: MELATONIN 5 MG TABLET PO PRN (02:28)
[2024-05-22] MEDS ORDERED: NON FORMULARY DRUG (Buprenorphine Hcl/Naloxone Hcl [Suboxone 8 Mg-2 Mg Sl Film] 1 EACH Fil SUBLINGUAL SCH (05:00)
[2024-05-22] MEDS: NON FORMULARY DRUG (Buprenorphine Hcl/Naloxone Hcl [Suboxone 8 Mg-2 Mg Sl Film] 1 EACH Fil SUBLINGUAL SCH (05:03)
[2024-05-22] MEDS ORDERED: ALBUTEROL NEBULIZED 2.5 MG/3 ML INHALATION PRN (05:44)
[2024-05-22] MEDS: ONDANSETRON 4 MG/2 ML VIAL IVP PRN (08:48)
[2024-05-22] MEDS: ATORVASTATIN 10 MG TAB PO SCH (08:48)
[2024-05-22] MEDS: CHOLECALCIFEROL 125 MCG (5000 IU) TABLET PO SCH (08:48)
--- NOTE | 2024-05-22 12:13 | P.CRDCN ---
History of Present Illness Consult date: 05/22/24 Reason for Consult (text): Acute pulmonary edema History of present illness: This is a 44-year-old male patient of Dr. Powell with past medical history of valvular heart disease with known bicuspid aortic valve and aortic stenosis and regurgitation, dilated aortic root and ascending aorta as well as hypertension, dyslipidemia, tobacco use and dependence, marijuana use. We have been asked to evaluate the patient for acute pulmonary edema. Patient gives history that on Friday, he started having a cough with yellow sputum production. By Friday he was having some difficulty taking a deep breath but he was not that concerned. It continued to worsen on Friday and and Friday were significantly worse with cough, sputum production and shortness of breath could not catch his breath. Patient has been started on nebulizer treatments, IV Lasix. He states that he is feeling 100% better. His initial pulse ox was 79% and now he is at 96% on 4 L nasal cannula. Temperature max 101.7. Heart rate 50, blood pressure 132/75. -EKG: Sinus rhythm with sinus arrhythmia and first-degree AV block -Chest x-ray: New bilateral perihilar acute infiltrates and/or edema. -Laboratory studies: WBC 9.6, hemoglobin 12.8, troponin negative x 1. proBNP 2370. -Home cardiac medications: Atorvastatin 10 mg daily, losartan 25 mg daily, metoprolol succinate 25 mg daily -Echocardiogram performed 03/27/2024 in the office revealed normal EF, mild to moderate MR, mild to moderate TR, moderate AR, mild AAS, dilated aortic root at 4.1 cm and ascending aorta at 4.2 cm. Review Of Systems: At the time of my exam: CONSTITUTIONAL: Denies fever or chills. HEENT: Denies blurred vision, vision changes, or eye pain. Denies hemoptysis CARDIOVASCULAR: Denies chest pain. Denies orthopnea. Denies PND. Denies palpitations RESPIRATORY: Denies shortness of breath. GASTROINTESTINAL: Denies abdominal pain. Denies nausea or vomiting. HEMATOLOGIC: Denies bleeding disorders. GENITOURINARY: Denies any blood in urine. SKIN: Denies puritis. Denies rash. Physical examination: Gen: This is a 44-year-old male in no acute distress VS: reviewed HEENT: Head is atraumatic, normocephalic. Pupils equal, round. Sclerae is anicteric. NECK: Supple. No JVD. LUNGS: Bilateral expiratory wheeze. No intercostal retractions. HEART: Regular rate and rhythm. Systolic and diastolic murmur. ABDOMEN: Soft No tenderness. EXTREMITIES: No pedal edema. No calf tenderness. NEUROLOGICAL: Patient is awake, alert and oriented x3. Assessment: Acute hypoxic respiratory failure secondary to pneumonia No sign of pulmonary edema Bicuspid aortic valve with aortic stenosis and regurgitation, stable Dilated aortic root and ascending aorta, stable Hypertension Dyslipidemia Tobacco use and dependence Marijuana use Plan: Continue resume patient's home cardiac medications Discontinue Lasix No need to repeat echocardiogram as this was done in March Cardiology will sign off this case and follow on an as-needed basis. Please reconsult for any new concerns. Patient may follow-up in the office in one to 2 weeks. Thank you kindly for this consultation. Nurse practitioner note has been reviewed, I agree with documented findings and plan of care. Patient was seen and examined. Past Medical History Past Medical History: Asthma, Pneumonia Additional Past Medical History / Comment(s): Herniated disc in back, chronic back pain. History of Any Multi-Drug Resistant Organisms: None Reported Past Surgical History: No Surgical Hx Reported Additional Past Surgical History / Comment(s): SURGERY ON URETHRAL OPENING A CHILD, back injections. 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 HE GOES TO [facility]. PT DENIES BEING SUICIDAL, NO PLANS AND NO THOUGHTS. HE STATES HE HAS DEPRESSION BUT NOTHING SEVERE. Smoking Status: Current every day smoker Past Alcohol Use History: None Reported Additional Past Alcohol Use History / Comment(s): PT STARTED SMOKING IN 1989 AND IS A 2 [employer] SMOK[employer]. Past Drug Use History: Marijuana, Prescription Drug Abuse Additional Drug Use History / Comment(s): In past used prescripation drugs that he bought off the street once he ran out of his [place]. Now he states he uses his own prescription norco. Pt states he used to snort heroin, but has not done so in 4 yrs. - Past Family History Father History Unknown: Yes mother Family Medical History: Diabetes Mellitus, Hypertension Medications and Allergies Home Medications Medication Instructions Recorded Confirmed Type Albuterol Sulfate [Proair Hfa] 1 puff INHALATION RT-Q4H PRN 07/14/21 05/21/24 History Atorvastatin [Lipitor] 10 mg PO DAILY@0800 07/14/21 05/21/24 History Cholecalciferol [Vitamin D3 (125 125 mcg PO DAILY@0800 07/14/21 05/21/24 History Mcg = 5000 Iu)] Buprenorphine HCl/Naloxone HCl 1 film SL BID@0800,1600 04/27/24 05/21/24 History [Suboxone 8 mg-2 mg Sl Film] Losartan [Cozaar] 25 mg PO DAILY@1700 04/27/24 05/21/24 History Metoprolol Succinate (ER) [Toprol 25 mg PO DAILY@1700 04/27/24 05/21/24 History Xl] Allergies Allergy/AdvReac Type Severity Reaction Status Date / Time egg Allergy Rash/Hives Verified 05/22/24 05:08 methylphenidate HCl Allergy Rash/Hives Verified 05/21/24 13:56 [From Ritalin] venom-honey bee Allergy Rash/Hives Verified 05/21/24 13:56 [bee venom (honey bee)] Physical Exam Vitals: Vital Signs Temp Pulse Pulse Resp BP BP Pulse Ox 05/22/24 09:39 96 05/22/24 07:21 98.0 F 50 L 16 132/75 99 05/22/24 03:23 97.6 F 58 L 112/68 99 05/21/24 21:01 71 18 106/69 97 05/21/24 19:59 74 18 85/59 97 05/21/24 18:34 98.9 F 77 19 116/71 93 L 05/21/24 17:51 71 22 92 L 05/21/24 16:40 68 20 111/70 93 L 05/21/24 16:20 19 05/21/24 15:19 99.0 F 74 16 101/64 90 L 05/21/24 13:53 99.3 F 81 15 107/59 90 L 05/21/24 12:53 80 05/21/24 12:43 92 05/21/24 12:26 17 05/21/24 12:14 68 16 104/79 91 L 05/21/24 11:42 101.7 F H 90 16 111/73 92 L 05/21/24 11:20 92 18 118/79 79 L Intake and Output 05/21/24 05/22/24 05/22/24 22:59 06:59 14:59 Intake Total 777 1080 Balance 777 1080 Intake: Oral 777 1080 Other: # Voids 5 Weight 72.575 kg 74.5 kg Results 05/21/24 11:29 05/21/24 11:29 Cardiac Enzymes 05/21/24 05/21/24 Range/Units 11:29 11:29 AST 23 (17-59) U/L Troponin I 0.032 (0.000-0.034) ng/mL Coagulation 05/21/24 Range/Units 11:29 PT 12.8 H (10.0-12.5) sec APTT 26.9 (22.0-30.0) sec CBC 05/21/24 Range/Units 11:29 WBC 9.6 (3.8-10.6) k/uL RBC 4.10 L (4.30-5.90) m/uL Hgb 12.8 L (13.0-17.5) gm/dL Hct 39.1 (39.0-53.0) % Plt Count 193 (150-450) k/uL Comprehensive Metabolic Panel 05/21/24 Range/Units 11:29 Sodium 136 L (137-145) mmol/L Potassium 4.1 (3.5-5.1) mmol/L Chloride 100 (98-107) mmol/L Carbon Dioxide 26 (22-30) mmol/L BUN 18 (9-20) mg/dL Creatinine 1.08 (0.66-1.25) mg/dL Glucose 115 H (74-99) mg/dL Calcium 9.3 (8.4-10.2) mg/dL AST 23 (17-59) U/L ALT 15 (4-49) U/L Alkaline Phosphatase 53 (38-126) U/L Total Protein 6.4 (6.3-8.2) g/dL Albumin 3.9 (3.5-5.0) g/dL Current Medications Generic Name Dose Route Start Last Admin Trade Name Freq PRN Reason Stop Dose Admin Albuterol Sulfate 2.5 mg 05/22/24 05:44 Albuterol Nebulized 2.5 Mg/3 Ml INHALATION RT-Q4H PRN Shortness Of Breath Atorvastatin Calcium 10 mg 05/22/24 09:00 05/22/24 08:48 Atorvastatin 10 Mg Tab PO 10 mg DAILY ZENIA Administration Cholecalciferol 125 mcg 05/22/24 09:00 05/22/24 08:48 Cholecalciferol 125 Mcg (5000 Iu) Tablet PO 125 mcg DAILY ZENIA Administration Furosemide 40 mg 05/21/24 22:00 05/22/24 05:03 Furosemide 10 Mg/Ml 4 Ml Vial IV 40 mg Q8H ZENIA Administration Losartan Potassium 25 mg 05/22/24 17:00 Losartan 25 Mg Tab PO DAILY@1700 [facility] Melatonin 5 mg 05/22/24 02:18 05/22/24 02:28 Melatonin 5 Mg Tablet PO 5 mg HS PRN Administration Insomnia Metoprolol Succinate 25 mg 05/22/24 17:00 Metoprolol Succinate (Er) 25 Mg Tab.Er.24h PO DAILY@1700 [facility] Nitroglycerin 1 inch 05/22/24 18:00 Nitroglycerin Oint 1 Inch/Gm Packet TOPICAL QID [facility] Non-Formulary Medication 1 film 05/22/24 05:00 05/22/24 05:03 Buprenorphine Hcl/Naloxone Hcl [Suboxone 8 Mg-2 Mg Sl Film] SUBLINGUAL 1 film BID@0500,1600 [facility] Administration Ondansetron HCl 4 mg 05/22/24 08:34 05/22/24 08:48 Ondansetron 4 Mg/2 Ml Vial IVP 4 mg Q6HR PRN Administration Nausea And Vomiting Intake and Output 05/21/24 05/22/24 05/22/24 22:59 06:59 14:59 Intake Total 777 1080 Balance 777 1080 Intake: Oral 777 0227 Other: # Voids 5 Weight 72.575 kg 74.5 kg 05/21/24 11:29 05/21/24 11:29
[2024-05-22 12:49] VITALS: BMI 22.8
--- NOTE | 2024-05-22 13:54 | P.HPIM ---
History of Present Illness H&P Date: 05/22/24 Chief Complaint: Acute pulmonary edema Patient is a 44-year-old male with history of asthma and pneumonia presented to the emergency department with difficulty breathing for the past 3 days. Patient reported using marijuana over the past weekend and was out with a group of friends. Patient started to notice shortness of breath, coughing, sputum production about 3 days ago and symptoms have slowly gotten worse which made the patient to come to the ED for evaluation. Patient was seen at bedside today. Reports difficulty breathing but has gotten better since he got admitted. He also reported yellow sputum production. Did report some chills and fever over the past few days. Also reported coughing, runny nose, sore throat. Denies any chest pain, nausea, vomiting, belly pain, lower extremity swelling, tingling or numbness in upper or lower extremities. ED documentation reviewed. In the ED patient was treated with Suboxone, Lasix 40 mg IV every 8 hours, Lasix 40 mg IV x 1, ibuprofen 600 mg p.o. x 1, acetaminophen 1000 mg p.o. x 1, Rocephin 1000 mg IV x 2, Solu-Medrol 125 mg IV x 1, Ventolin 5 mg x 1, Atrovent 0.5 mg x 1 Vitals on admission temperature 98, pulse rate 50, respiratory rate 16, blood pressure 132/75, O2 sat 99% on nasal cannula at 6 L/min EKG independently interpreted as sinus rhythm with sinus arrhythmia with first- degree AV block with a ventricular rate of 64 bpm, moderate ST depression, QTc interval of 397 ms. CXR shows new bilateral perihilar acute infiltrates and/or edema. Correlate for fluid overload state versus infection. Labs on admission show WBC 9.6, hemoglobin 12.8, hematocrit 39.1, platelets 193, PT 12.8, PTT 26.9, INR 1.2, sodium 136, potassium 4.1, chloride 100, carbon dioxide 26, BUN 18, creatinine 1.08, glucose 115, total bili 1.6, BNP 2370, troponin 0.032 Respiratory panel negative for influenza type A and B, RSV, COVID-19. Review of systems: Pertinent positives and negatives as discussed in HPI, a complete review of systems was performed and all other systems are negative. PMH: History of asthma and pneumonia PSH: Back injections FMH: Mother has a history of diabetes and hypertension Allergies: Headache, methylphenidate, venom honeybee Social history: Tobacco: Current everyday smoker Alcohol: None reported Recreational drugs: Marijuana, prescription drug abuse Travel: No travel history Sick contacts: No sick contacts Physical examination: Vital signs reviewed General: nontoxic, no distress, appears at stated age Derm: warm, dry, intact Head: atraumatic, normocephalic, symmetric Eyes: EOMI, anicteric sclera Mouth: no lip lesion, mucus membranes moist Cardiovascular: S1 S2 reg, no murmur Lungs: CTA bilateral, no rhonchi, no rales, no accessory muscle use Abdominal: soft, non-tender to palpation Extremities: No cyanosis, clubbing, or pedal edema. Neuro: Alert, Oriented, Gross neurological examination did not reveal any focal deficits. Psych: well appearing, appropriate affect Assessment/Plan: Patient is a 44-year-old male with history of asthma and pneumonia presented to the emergency department with difficulty breathing for the past 3 days. Patient will be admitted to internal medicine service. Active: #. Rule out acute congestive heart failure #. Pulmonary edema likely secondary to atypical pneumonia Chest x-ray showed new bilateral perihilar acute infiltrates and/or edema. Correlate for fluid overload state versus infection. BNP 2370 Troponin 0.032 Previous echo was done on 05/14/2017 with LVEF between 55 to 60% Echocardiogram was performed on 03/27/2024 Consult cardiology #. Hyponatremia Sodium 136 Monitor morning BMP Chronic: #. Hypertension Restart metoprolol succinate 25 mg daily and losartan 25 mg daily #. Hyperlipidemia Restart Lipitor 10 mg daily F: No restrictions E: Replete as needed N: Heart healthy diet A: EMS DVT prophylaxis: Lovenox 40 mg subcu daily The patient is admitted with an anticipated less than 2 midnight stay for evaluation of pulmonary edema CODE STATUS: Full code Discussed with: Patient Anticipated discharge place: Home Past Medical History Past Medical History: Asthma, Pneumonia Additional Past Medical History / Comment(s): Herniated disc in back, chronic back pain. History of Any Multi-Drug Resistant Organisms: None Reported Past Surgical History: No Surgical Hx Reported Additional Past Surgical History / Comment(s): SURGERY ON URETHRAL OPENING A CHILD, back injections. 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 HE GOES TO [facility]. PT DENIES BEING SUICIDAL, NO PLANS AND NO THOUGHTS. HE STATES HE HAS DEPRESSION BUT NOTHING SEVERE. Smoking Status: Current every day smoker Past Alcohol Use History: None Reported Additional Past Alcohol Use History / Comment(s): PT STARTED SMOKING IN 1989 AND IS A 2 [employer] S[employer]. Past Drug Use History: Marijuana, Prescription Drug Abuse Additional Drug Use History / Comment(s): In past used prescripation drugs that he bought off the street once he ran out of his [place]. Now he states he uses his own prescription norco. Pt states he used to snort heroin, but has not done so in 4 yrs. - Past Family History Father History Unknown: Yes mother Family Medical History: Diabetes Mellitus, Hypertension Medications and Allergies Home Medications Medication Instructions Recorded Confirmed Type Albuterol Sulfate [Proair Hfa] 1 puff INHALATION RT-Q4H PRN 07/14/21 05/21/24 History Atorvastatin [Lipitor] 10 mg PO DAILY@0800 07/14/21 05/21/24 History Cholecalciferol [Vitamin D3 (125 125 mcg PO DAILY@0800 07/14/21 05/21/24 History Mcg = 5000 Iu)] Buprenorphine HCl/Naloxone HCl 1 film SL BID@0800,1600 04/27/24 05/21/24 History [Suboxone 8 mg-2 mg Sl Film] Losartan [Cozaar] 25 mg PO DAILY@1700 04/27/24 05/21/24 History Metoprolol Succinate (ER) [Toprol 25 mg PO DAILY@1700 04/27/24 05/21/24 History Xl] Allergies Allergy/AdvReac Type Severity Reaction Status Date / Time egg Allergy Rash/Hives Verified 05/22/24 05:08 methylphenidate HCl Allergy Rash/Hives Verified 05/21/24 13:56 [From Ritalin] venom-honey bee Allergy Rash/Hives Verified 05/21/24 13:56 [bee venom (honey bee)] Physical Exam Vitals: Vital Signs Temp Pulse Pulse Resp BP BP Pulse Ox 05/22/24 07:21 98.0 F 50 L 16 132/75 99 05/22/24 03:23 97.6 F 58 L 112/68 99 05/21/24 21:01 71 18 106/69 97 05/21/24 19:59 74 18 85/59 97 05/21/24 18:34 98.9 F 77 19 116/71 93 L 05/21/24 17:51 71 22 92 L 05/21/24 16:40 68 20 111/70 93 L 05/21/24 16:20 19 05/21/24 15:19 99.0 F 74 16 101/64 90 L 05/21/24 13:53 99.3 F 81 15 107/59 90 L 05/21/24 12:53 80 05/21/24 12:43 92 05/21/24 12:26 17 05/21/24 12:14 68 16 104/79 91 L 05/21/24 11:42 101.7 F H 90 16 111/73 92 L 05/21/24 11:20 92 18 118/79 79 L Intake and Output 05/21/24 05/22/24 05/22/24 22:59 06:59 14:59 Intake Total 777 1080 Balance 777 1080 Intake: Oral 777 1080 Other: # Voids 5 Weight 72.575 kg 74.5 kg Results CBC & Chem 7: 05/21/24 11:29 05/21/24 11:29 Labs: Abnormal Lab Results - Last 24 Hours (Table) 05/21/24 05/21/24 05/21/24 Range/Units 11:29 11:29 11:29 RBC 4.10 L (4.30-5.90) m/uL Hgb 12.8 L (13.0-17.5) gm/dL Lymphocytes # 0.9 L (1.0-4.8) k/uL PT 12.8 H (10.0-12.5) sec INR 1.2 H (<1.2) Sodium 136 L (137-145) mmol/L Glucose 115 H (74-99) mg/dL Total Bilirubin 1.6 H (0.2-1.3) mg/dL Thrombosis Risk Factor Assmnt - Choose All That Apply Any of the Below Risk Factors Present?: Yes Each Factor Represents 1 point: Age 41-60 years Other Risk Factors: No Other congenital or acquired thrombophilia - If yes, enter type in comment: No Thrombosis Risk Factor Assessment Total Risk Factor Score: 1 Thrombosis Risk Factor Assessment Level: Low Risk
[2024-05-22] MEDS: NITROGLYCERIN OINT 1 INCH/GM PACKET TOPICAL SCH (14:02)
[2024-05-22] MEDS: METOPROLOL SUCCINATE (ER) 25 MG TAB.ER.24H PO SCH (16:53)
[2024-05-22] MEDS: LOSARTAN 25 MG TAB PO SCH (16:53)
[2024-05-22] MEDS: SENNOSIDES-DOCUSATE SODIUM 1 EACH TAB PO SCH (16:54)
[2024-05-22] MEDS: guaiFENesin-DM 100-10MG/5ML 10 ML CUP PO PRN (17:13)
[2024-05-23] MEDS: ENOXAPARIN 40 MG/0.4 ML SYRINGE SQ SCH (08:07)
[2024-05-23 09:27] LABS: Basophils # (A) 0.03 X 10*3/uL (0.00-0.10); Basophils % (A) 0.2 %; Eosinophils # (A) 0.03 X 10*3/uL (0.04-0.35); Eosinophils % (A) 0.2 %; HGB 12.4 g/dL (13.0-17.0); Lymphocytes # (A) 0.99 X 10*3/uL (0.90-5.00); Lymphocytes % (A) 8.2 %; MCHC 33.5 g/dL (32.0-37.0); MCV 92.5 FL (80.0-97.0); Mean Platelet Volume 11.9 FL (9.5-12.2); Monocytes % (A) 9.2 %; NRBC Per 100 WBC 0 X 10*3/uL (0.00-0.01); Neutrophils # (A) 9.81 X 10*3/uL (1.80-7.70); Neutrophils % (A) 81.7 %; Platelet Count 203 X 10*3/uL (140-440); RDW 13.4 % (11.5-14.5); WBC 12.02 X 10*3/uL (4.50-10.00)
[2024-05-23 09:44] LABS: BUN/Creat Ratio 21.71 Ratio (12.00-20.00); Blood Urea Nitrogen 36.9 mg/dL (9.0-27.0); Calcium 9.4 mg/dL (8.7-10.3); Carbon Dioxide 31.1 mmol/L (21.6-31.8); Chloride 97 mmol/L (96-109); Glucose 128 mg/dL (70-110); Potassium 4.4 mmol/L (3.5-5.5); Sodium 139 mmol/L (135-145)
[2024-05-23] MEDS ORDERED: ALPRAZolam 0.5 MG TAB PO PRN (12:32)
--- NOTE | 2024-05-23 12:43 | P.PN ---
Subjective Patient is a 44-year-old male with history of asthma and pneumonia presented to the emergency department with difficulty breathing for the past 3 days. Patient reported using marijuana over the past weekend and was out with a group of friends. Patient started to notice shortness of breath, coughing, sputum production about 3 days ago and symptoms have slowly gotten worse which made the patient to come to the ED for evaluation. Patient was seen at bedside today. Reports difficulty breathing but has gotten better since he got admitted. He also reported yellow sputum production. Did report some chills and fever over the past few days. Also reported coughing, runny nose, sore throat. Denies any chest pain, nausea, vomiting, belly pain, lower extremity swelling, tingling or numbness in upper or lower extremities. ED documentation reviewed. In the ED patient was treated with Suboxone, Lasix 40 mg IV every 8 hours, Lasix 40 mg IV x 1, ibuprofen 600 mg p.o. x 1, acetaminophen 1000 mg p.o. x 1, Rocephin 1000 mg IV x 2, Solu-Medrol 125 mg IV x 1, Ventolin 5 mg x 1, Atrovent 0.5 mg x 1 Vitals on admission temperature 98, pulse rate 50, respiratory rate 16, blood pressure 132/75, O2 sat 99% on nasal cannula at 6 L/min EKG independently interpreted as sinus rhythm with sinus arrhythmia with first- degree AV block with a ventricular rate of 64 bpm, moderate ST depression, QTc interval of 397 ms. CXR shows new bilateral perihilar acute infiltrates and/or edema. Correlate for fluid overload state versus infection. Labs on admission show WBC 9.6, hemoglobin 12.8, hematocrit 39.1, platelets 193, PT 12.8, PTT 26.9, INR 1.2, sodium 136, potassium 4.1, chloride 100, carbon dioxide 26, BUN 18, creatinine 1.08, glucose 115, total bili 1.6, BNP 2370, troponin 0.032 Respiratory panel negative for influenza type A and B, RSV, COVID-19. 05/23 This is a pleasant 44 years old male who presents because of nausea headache and shortness of breath. Patient was seen by psychiatrist on 09/02/2017 and diagnosed with opioid use disorder, severe antisocial personality disorder and polypharmacy. Patient was diagnosed with acute CHF with proBNP is 2370. As per cardiology no pulmonary edema but pneumonia.. Lasix was discontinued by cardiology team will sign of the case. Pro- Calcitonin is negative at 0.30 Today he is saturating 95% on 2 L oxygen and rest of vitals stable He was anxious to go home. He has mild leukocytosis of 12,000 Creatinine went up from 1.0-1.7, baseline is 1.0-1.3 Last echocardiogram in the system from 05/14/2017 showing ejection fraction 55 to 60% Review of systems CONSTITUTIONAL: No fever, no malaise, no fatigue. HEENT: No recent visual problems or hearing problems. Denied any sore throat. CARDIOVASCULAR: No orthopnea, PND, no palpitations, no syncope. GENITOURINARY: Denies any burning micturition, frequency, or urgency. MUSCULOSKELETAL/RHEUMATOLOGICAL: Denies any joint pain, swelling, or any muscle pain. ENDOCRINE: Denies any polyuria or polydipsia. Active Medications Generic Name Dose Route Start Last Admin Trade Name Freq PRN Reason Stop Dose Admin Albuterol Sulfate 2.5 mg 05/22/24 05:44 Albuterol Nebulized 2.5 Mg/3 Ml INHALATION RT-Q4H PRN Shortness Of Breath Alprazolam 0.5 mg 05/23/24 12:42 Alprazolam 0.5 Mg Tab PO TID PRN Anxiety Atorvastatin Calcium 10 mg 05/22/24 09:00 05/23/24 08:07 Atorvastatin 10 Mg Tab PO 10 mg DAILY ZENIA Administration Cholecalciferol 125 mcg 05/22/24 09:00 05/23/24 08:07 Cholecalciferol 125 Mcg (5000 Iu) Tablet PO 125 mcg DAILY ZENIA Administration Enoxaparin Sodium 30 mg 05/24/24 09:00 Enoxaparin 30 Mg/0.3 Ml Syringe SQ DAILY ZENIA Famotidine 20 mg 05/24/24 09:00 Famotidine 20 Mg/2 Ml Vial IV DAILY ZENIA Guaifenesin/Dextromethorphan 5 ml 05/22/24 17:00 05/22/24 17:13 Guaifenesin-Dm 100-10mg/5ml 10 Ml Cup PO 5 ml Q6HR PRN Administration Cough Melatonin 5 mg 05/22/24 02:18 05/22/24 20:37 Melatonin 5 Mg Tablet PO 5 mg HS PRN Administration Insomnia Metoprolol Succinate 25 mg 05/22/24 17:00 05/22/24 16:53 Metoprolol Succinate (Er) 25 Mg Tab.Er.24h PO 25 mg DAILY@1700 [facility] Administration Nitroglycerin 1 inch 05/22/24 18:00 05/23/24 11:08 Nitroglycerin Oint 1 Inch/Gm Packet TOPICAL Not Given QID [facility] Non-Formulary Medication 1 film 05/22/24 05:00 05/23/24 04:39 Buprenorphine Hcl/Naloxone Hcl [Suboxone 8 Mg-2 Mg Sl Film] SUBLINGUAL 1 film BID@0500,1600 [facility] Administration Ondansetron HCl 4 mg 05/22/24 08:34 05/23/24 02:57 Ondansetron 4 Mg/2 Ml Vial IVP 4 mg Q6HR PRN Administration Nausea And Vomiting Senna/Docusate Sodium 1 each 05/22/24 21:00 05/23/24 08:06 Sennosides-Docusate Sodium 1 Each Tab PO Not Given BID [facility] Objective - Vital Signs Vital signs: Vital Signs Temp 98.3 F 05/23/24 07:06 Pulse 98 05/23/24 07:06 Resp 17 05/23/24 07:06 BP 122/80 05/23/24 07:06 Pulse Ox 95 05/23/24 07:06 FiO2 Intake & Output 05/22/24 05/23/24 05/23/24 18:59 06:59 18:59 Weight 74.5 kg 74.5 kg Other: Voiding Method Toilet # Voids 3 2 # Bowel Movements 0 - Exam GENERAL: The patient is alert and oriented x3, not in any acute distress. Well developed, well nourished. HEENT: Pupils are round and equally reacting to light. EOMI. No scleral icterus. No conjunctival pallor. Normocephalic, atraumatic. No pharyngeal erythema. No thyromegaly. CARDIOVASCULAR: S1 and S2 present. No murmurs, rubs, or gallops. -PULMONARY: Chest is clear to auscultation, no wheezing , bilateral basal crepitation ABDOMEN: Soft, nontender, nondistended, normoactive bowel sounds. No palpable organomegaly. MUSCULOSKELETAL: No joint swelling or deformity. -EXTREMITIES: No cyanosis, clubbing, 2+ bilateral pitting leg edema. NEUROLOGICAL: Gross neurological examination did not reveal any focal deficits. SKIN: No rashes. no petechiae. - Labs CBC & Chem 7: 05/23/24 02:55 05/23/24 02:55 Labs: Abnormal Lab Results - Last 24 Hours (Table) 05/23/24 05/23/24 Range/Units 02:55 02:55 WBC 12.02 H (4.50-10.00) X 10*3/uL RBC 4.00 L (4.40-5.60) X 10*6/uL Hgb 12.4 L (13.0-17.0) g/dL Hct 37.0 L (39.6-50.0) % Immature Gran # 0.06 H (0.00-0.04) X 10*3/uL Neutrophils # 9.81 H (1.80-7.70) X 10*3/uL Monocytes # 1.10 H (0.20-1.00) X 10*3/uL Eosinophils # 0.03 L (0.04-0.35) X 10*3/uL BUN 36.9 H (9.0-27.0) mg/dL Creatinine 1.7 H (0.6-1.5) mg/dL Est GFR (CKD-EPI) 50 L (>=60) BUN/Creatinine Ratio 21.71 H (12.00-20.00) Ratio Glucose 128 H (70-110) mg/dL Microbiology - Last 24 Hours (Table) 05/21/24 11:59 Blood Culture - Preliminary Blood Assessment and Plan Assessment: Acute kidney injury on CKD stage III Acute CHF exacerbation, unknown e ejection fraction. Probable diastolic based on old echocardiogram Opioid use disorder on Suboxone, patient has a public guardian Hypertension Hyperlipidemia Plan: Hold losartan Check bladder scan Check renal ultrasound Consult nephrology team Lasix was put on hold by cardiology and sign of the case as they do not think it is due to CHF Xanax as needed for anxiety. Short course Labs and medication were reviewed.. Continue same treatment. Continue with symptomatic treatment. Resume home medication. Monitor labs and vitals. DVT and GI prophylaxis. Further recommendations as per clinical course of the patient DVT prophylaxis: Subcutaneous Lovenox GI Prophylaxis: Pepcid PT/OT: Pending Prognosis is guarded
[2024-05-23] MEDS: ALPRAZolam 0.5 MG TAB PO PRN (12:44)
[2024-05-23 15:10] LABS: Appearance,Urine Clear (Clear); Bilirubin,Urine Negative (Negative); Blood,Urine Negative (Negative); Color,Urine Colorless; Glucose,Urine (UA) Negative (Negative); Ketones,Urine Negative (Negative); Leukocyte Esterase,Urine Negative (Negative); Nitrite,Urine Negative (Negative); Protein,Urine Negative (Negative); Specific Gravity,Urine 1.015 (1.001-1.035); Urobilinogen,Urine <2.0 mg/dL (<2.0)
--- NOTE | 2024-05-23 15:23 | US ---
EXAMINATION TYPE: US renals and bladder DATE OF EXAM: 05/23/2024 COMPARISON: NONE CLINICAL INDICATION: Male, 44 years old with history of aixa; AIXA TECHNIQUE: Grayscale imaging of the bilateral kidneys and urinary bladder: FINDINGS: EXAM MEASUREMENTS: Right Kidney: 9.8 x 4.9 x 4.2 cm Left Kidney: 9.2 x 3.9 x 4.8 cm Right Kidney: No hydronephrosis or masses seen Left Kidney: No hydronephrosis or masses seen - left side partially obscured by bowel gas Bladder: not distended There is no evidence for hydronephrosis at this point in time. No nephrolithiasis is seen. No cliff s are identified. The urinary bladder is anechoic. IMPRESSION: No evidence for acute process. No obstructive uropathy or calculi is visualized. [facility], , 05/23/2024 3:21 PM
[2024-05-23] MEDS ORDERED: ALPRAZolam 0.25 MG TAB PO PRN (17:47)
[2024-05-24 07:18] VITALS: BP 138/85; PULSE 55; RESP 17; TEMP 97.6
[2024-05-24] MEDS: FAMOTIDINE 20 MG/2 ML VIAL IV SCH (08:59)
[2024-05-24] MEDS: ENOXAPARIN 30 MG/0.3 ML SYRINGE SQ SCH (08:59)
[2024-05-24 09:09] LABS: BUN/Creat Ratio 23.69 Ratio (12.00-20.00); Blood Urea Nitrogen 30.8 mg/dL (9.0-27.0); Calcium 9.2 mg/dL (8.7-10.3); Carbon Dioxide 28.7 mmol/L (21.6-31.8); Chloride 99 mmol/L (96-109); Glucose 117 mg/dL (70-110); Potassium 4.4 mmol/L (3.5-5.5); Sodium 140 mmol/L (135-145)
[2024-05-24 09:29] LABS: HCT 39.5 % (39.6-50.0); HGB 12.5 g/dL (13.0-17.0); MCH 30.4 pg (27.0-32.0); MCHC 31.6 g/dL (32.0-37.0); MCV 96.1 FL (80.0-97.0); Mean Platelet Volume 11.4 FL (9.5-12.2); NRBC Per 100 WBC 0 X 10*3/uL (0.00-0.01); Platelet Count 214 X 10*3/uL (140-440); RBC 4.11 X 10*6/uL (4.40-5.60); RDW 13.6 % (11.5-14.5); WBC 7.99 X 10*3/uL (4.50-10.00)
[2024-05-24 09:30] LABS: Basophils # (A) 0.02 X 10*3/uL (0.00-0.10); Basophils % (A) 0.3 %; Eosinophils # (A) 0.03 X 10*3/uL (0.04-0.35); Eosinophils % (A) 0.4 %; Lymphocytes # (A) 1.68 X 10*3/uL (0.90-5.00); Monocytes # (A) 0.81 X 10*3/uL (0.20-1.00); Monocytes % (A) 10.1 %; Neutrophils # (A) 5.42 X 10*3/uL (1.80-7.70); Neutrophils % (A) 67.8 %
--- NOTE | 2024-05-24 11:04 | P.NPCON ---
History of Present Illness - Reason for Consult acute renal failure - History of Present Illness Reason for consultation: Acute kidney injury History of present illness: Patient is a 44-year-old male seen in renal consultation for acute kidney injury. Creatinine peaked at 1.7 this admission and is 1.3 today. Patient came to the hospital on May 21, 2024 due to shortness of breath going on for about 4 to 5 days duration. He admits to a mild cough. Currently he is on room air and states he feels perfectly fine. He does admit to smoking almost 3 packs/day of cigarettes. He also smokes marijuana. Denies use of IV drug abuse or alcohol use. Has been voiding. No gross hematuria or dysuria. Denies edema in the lower extremities. No gross hematuria or dysuria. Denies regular use of nonsteroidals. Denies history of diabetes or coronary artery disease. He does take losartan outpatient which is currently held. Patient states he is also on Suboxone due to history of IV drug abuse. Vital signs are stable. General: No acute distress. HEENT: Head exam is unremarkable. LUNGS: No audible rhonchi or wheezes. HEART: Rate and Rhythm are regular. ABDOMEN: Nontender. EXTREMITITES: No edema. Past Medical History Past Medical History: Asthma, Pneumonia Additional Past Medical History / Comment(s): Herniated disc in back, chronic back pain. History of Any Multi-Drug Resistant Organisms: None Reported Past Surgical History: No Surgical Hx Reported Additional Past Surgical History / Comment(s): SURGERY ON URETHRAL OPENING A CHILD, back injections. 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 [facility]. PT DENIES BEING SUICIDAL, NO PLANS AND NO THOUGHTS. HE STATES HE HAS DEPRESSION BUT NOTHING SEVERE. Smoking Status: Current every day smoker Past Alcohol Use History: None Reported Additional Past Alcohol Use History / Comment(s): PT STARTED SMOKING IN 1989 AND IS A 2 [employer]. Past Drug Use History: Marijuana, Prescription Drug Abuse Additional Drug Use History / Comment(s): In past used prescripation drugs that he bought off the street once he ran out of his [place]. Now he states he uses his own prescription norco. Pt states he used to snort heroin, but has not done so in 4 yrs. - Past Family History Father History Unknown: Yes mother Family Medical History: Diabetes Mellitus, Hypertension Medications and Allergies Home Medications Medication Instructions Recorded Confirmed Type Albuterol Sulfate [Proair Hfa] 1 puff INHALATION RT-Q4H PRN 07/14/21 05/21/24 History Atorvastatin [Lipitor] 10 mg PO DAILY@0800 07/14/21 05/21/24 History Cholecalciferol [Vitamin D3 (125 125 mcg PO DAILY@0800 07/14/21 05/21/24 History Mcg = 5000 Iu)] Buprenorphine HCl/Naloxone HCl 1 film SL BID@0800,1600 04/27/24 05/21/24 History [Suboxone 8 mg-2 mg Sl Film] Losartan [Cozaar] 25 mg PO DAILY@1700 04/27/24 05/21/24 History Metoprolol Succinate (ER) [Toprol 25 mg PO DAILY@1700 04/27/24 05/21/24 History Xl] Allergies Allergy/AdvReac Type Severity Reaction Status Date / Time egg Allergy Rash/Hives Verified 05/22/24 05:08 methylphenidate HCl Allergy Rash/Hives Verified 05/21/24 13:56 [From Ritalin] venom-honey bee Allergy Rash/Hives Verified 05/21/24 13:56 [bee venom (honey bee)] Physical Exam Vitals: Vital Signs Temp Pulse Resp BP Pulse Ox 05/24/24 09:04 55 L 17 05/24/24 07:17 97.6 F 55 L 17 138/85 98 05/24/24 04:38 68 122/75 05/23/24 20:00 98.4 F 55 L 16 104/56 97 05/23/24 14:11 98.6 F 61 18 115/71 95 Intake and Output 05/23/24 05/24/24 05/24/24 22:59 06:59 14:59 Intake Total 1360 1620 Balance 1360 1620 Intake: Oral 1360 1620 Other: Voiding Method Toilet Toilet # Voids 5 Results - Lab Results Most recent lab results Calcium 9.2 mg/dL (8.7-10.3) 05/24/24 03:10 Magnesium 1.9 mg/dL (1.6-2.3) 05/21/24 11:29 05/24/24 03:10 05/24/24 03:10 Assessment and Plan Plan: Assessment: 1. Acute kidney injury secondary to vasomotor nephropathy secondary to hypovolemia further worsened with the use of angiotensin receptor rody and diuretics. Creatinine peaked at 1.7 and is 1.3 today. UA benign. No hyd ronephrosis noted on kidney ultrasound. 2. Tobacco abuse. 3. Aortic stenosis and regurgitation. Cardiology following. 4. Benign hypertension. Stable. Plan: Continue to hold diuretics. Avoid nephrotoxins. Follow-up outpatient 1 week postdischarge. Thank you for the consultation. I will continue to follow the patient with you during his hospital stay.
--- NOTE | 2024-05-24 13:51 | P.DS ---
Providers Date of admission: 05/21/24 15:15 Expected date of discharge: 05/24/24 Attending physician: Quan Meredith MD Consults: 05/21/24 15:22 Consult Physician Routine Consulting Provider: Cardiology Sam Consult Reason/Comments: acute pulmonary edema Do you want consulting provider notified?: Yes 05/23/24 12:34 Consult Physician Routine Consulting Provider: Sakshi Rodas Consult Reason/Comments: angelito Do you want consulting provider notified?: Yes Primary care physician: [facility] Course: Hospital course: Patient is a 44-year-old male with history of asthma and pneumonia presented to the emergency department with difficulty breathing for the past 3 days. Patient reported using marijuana over the past weekend and was out with a group of friends. He started noticing shortness of breath, coughing, sputum production for the past 3 days and symptoms have slowly gotten worse which made the patient to come to the ED for evaluation. Patient was seen at bedside today. Initial chest x-ray shows new bilateral perihilar acute infiltrates and/or edema. Correlate for fluid overload state versus infection. BNP was elevated at 2370. Cardiology was consulted and they recommended outpatient follow-up in 1 to 2 weeks post discharge. Patient was admitted for atypical pneumonia. Patient developed acute kidney injury on 05/23/2024 and as a result nephrology was consulted. Renal ultrasound was ordered and showed no evidence for acute process, no obstructive uropathy or calculi is visualized. Nephrology recommended to follow-up outpatient 1 week postdischarge. Patient was seen on 05/24/2024. Reports no acute complaints at this time. Patient is stable to be discharged back home. Azithromycin 500 mg daily for 5 days will be prescribed. Patient is recommended to follow-up with cardiology and nephrology in 1 week and primary care physician in 1 to 2 days after discharge. Physical examination at discharge: GENERAL: This is a 44-year-old in no apparent distress at the time of examination. Pleasant and cooperative. HEENT: Head is atraumatic, normocephalic. Pupils are equal, round, and reactive to light. Sclerae anicteric. Conjunctivae are clear. Mucus membranes of the mouth are moist. Neck is supple. RESPIRATORY: Clear to auscultation. No wheezes, rales, or rhonchi. No use of accessory muscles. Patient maintaining oxygen saturation greater than 92%. No chest wall tenderness is noted on palpation or with deep breathing. CARDIOVASCULAR: Regular rate and rhythm. S1 and S2 noted. No systolic or diastolic murmur auscultated. No JVD noted. No S3 or S4 noted. GASTROINTESTINAL: No distention noted. Abdomen soft and round. Normal active bowel sounds auscultated x 4 quadrants. No pain or tenderness noted upon palp ation. INTEGUMENTARY: No cyanosis. No jaundice. No rashes noted. No cellulitis noted. EXTREMITIES: 2+ peripheral pulses. No evidence of peripheral edema. No calf tenderness noted. NEUROLOGIC: Cranial nerves II-XII intact. PSYCHIATRIC: Awake, alert, and oriented X 3. Appropriate affect. Intact judgement and insight. Plan - Discharge Summary Discharge Rx Participant: No New Discharge Prescriptions: New Azithromycin [Zithromax] 500 mg PO DAILY 5 Days #5 tab No Action Albuterol Sulfate [Proair Hfa] 1 puff INHALATION RT-Q4H PRN PRN Reason: Shortness Of Breath Cholecalciferol [Vitamin D3 (125 Mcg = 5000 Iu)] 125 mcg PO DAILY@0800 Atorvastatin [Lipitor] 10 mg PO DAILY@0800 Losartan [Cozaar] 25 mg PO DAILY@1700 Buprenorphine HCl/Naloxone HCl [Suboxone 8 mg-2 mg Sl Film] 1 film SL BID@0800,1600 Metoprolol Succinate (ER) [Toprol Xl] 25 mg PO DAILY@1700 Discharge Medication List Albuterol Sulfate [Proair Hfa] 1 puff INHALATION RT-Q4H PRN 07/14/21 [History] Atorvastatin [Lipitor] 10 mg PO DAILY@0800 07/14/21 [History] Cholecalciferol [Vitamin D3 (125 Mcg = 5000 Iu)] 125 mcg PO DAILY@0800 07/14/21 [History] Buprenorphine HCl/Naloxone HCl [Suboxone 8 mg-2 mg Sl Film] 1 film SL BID@0800,1600 04/27/24 [History] Losartan [Cozaar] 25 mg PO DAILY@1700 04/27/24 [History] Metoprolol Succinate (ER) [Toprol Xl] 25 mg PO DAILY@1700 04/27/24 [History] Azithromycin [Zithromax] 500 mg PO DAILY 5 Days #5 tab 05/24/24 [Rx] Follow up Appointment(s)/Referral(s): Curt Naylor DO [STAFF PHYSICIAN] - 1 Week Angela Kiser MD [Primary Care Provider] - 1-2 days Elijah Swift DO [STAFF PHYSICIAN] - 1 Week Discharge Disposition: HOME SELF-CARE
[2024-05-25] MEDS ORDERED: ENOXAPARIN 40 MG/0.4 ML SYRINGE SQ SCH (09:00)
--- NOTE | 2024-05-25 16:17 | CDI ---
Documentation Clarification Form Date: 05/25/2024 04:04:17 PM From: Magi Lara Phone: Admit Date: 05/21/2024 03:15:00 PM Patient Name: Miles Ruby Visit Number: [id number] Discharge Date: 05/24/2024 03:21:00 PM ATTENTION: The Clinical Documentation Specialists (CDI) and [facility] Coding Staff appreciate your assistance in clarifying documentation. Please respond to the clarification below the line at the bottom and electronically sign. The CDI & [facility] Coding staff will review the response and follow-up if needed. Please note: Queries are made part of the Legal Health Record. If you have any questions, please contact the author of this message via ITS. Doctor/Provider: Curt Naylor [AcuteCHFexacerbation, is documented in pn on 05/23/2024 which may lack sufficient clinical evidence/support in the medical record. Additional clarification is requested. History/Risk Factors: Patient is a 44-year-old male with history ofasthmaandpneumoniapresented to the emergency department with difficulty breathing for the past 3 days. Clinical Indicators: In h/p -Vitals on admission temperature 98, pulse rate 50, respiratory rate 16, blood [id number]/75, O2 sat 99% on nasal cannula at 6 L/min EKG independently interpreted as sinusrhythmwithsinus arrhythmiawith first- degreeAV blockwith a ventricular rate of 64 bpm, moderate STdepression, QTc interval of 397 ms. CXRshows new bilateral perihilar acuteinfiltratesand/oredema. Correlate for fluid overloadstateversusinfection. Labs on admission show WBC 9. 6, hemoglobin 12. 8, hematocrit 39. 1, platelets 193, PT12. 8, PTT 26. 9, INR 1. 2, sodium 136, potassium 4. 1, chloride 100, carbon dioxide 26, BUN 18, creatinine 1. 08, glucose 115, total bili 1. 6, BNP 2370, troponin 0. 032 ON 05/22 H/P -Rule outacutecongestive heart failure #. Pulmonary edemalikely secondary toatypical pneumonia Chest x-rayshowed new bilateral perihilar acuteinfiltratesand/oredema. Correlate forfluid overloadstateversusinfection. BNP 2370 Troponin 0. 032 Previous echo was done on 05/14/2017 with LVEF between 55 to 60% Echocardiogramwas performed on 03/27/2024 Cardiology consult on 05/22 -No sign ofpulmonary edema Bicuspid aortic valvewithaortic stenosisandregurgitation, stable dilatedaortic root and ascending aorta, stable Pn on 05/23-AcuteCHFexacerbation, unknown e ejection fraction. Probablediastolic based on oldechocardiogram Treatment: Continue resume patient's home cardiac medications Discontinue Lasix Noneed to repeatechocardiogramas this was done in March Please clarify if [AcuteCHFexacerbation is a valid diagnosis? [ X ] No, [AcuteCHFexacerbation] is ruled out [ ] Yes, [AcuteCHFexacerbation] is present as evidence by (additional clinical support): [ ] Other (please specify diagnosis) [ ] Unable to determine (Template Last Revised: October 2023) MTDD
== END 2024-05-24 15:21 | disposition home or self-care (01) | DRG 139 ==
LOC: EC 11:18 → 4SSUR 15:15
PROVIDERS: ADMIT Internal Medicine; ATTEND Internal Medicine
DX: J18.9 Pneumonia, unspecified organism (principal); J45.909 Unspecified asthma, uncomplicated; N18.30 Chronic kidney disease, stage 3 unspecified; N17.0 Acute kidney failure with tubular necrosis; F17.210 Nicotine dependence, cigarettes, uncomplicated; F90.9 Attention-deficit hyperactivity disorder, unspecified type; F31.9 Bipolar disorder, unspecified; F41.9 Anxiety disorder, unspecified; E78.5 Hyperlipidemia, unspecified; I50.33 Acute on chronic diastolic (congestive) heart failure; J96.01 Acute respiratory failure with hypoxia; I35.0 Nonrheumatic aortic (valve) stenosis; I77.810 Thoracic aortic ectasia; I13.0 Hypertensive heart and chronic kidney disease with heart failure and stage 1 through stage 4 chronic kidney disease, or unspecified chronic kidney disease; E87.1 Hypo-osmolality and hyponatremia; Q23.81 Bicuspid aortic valve; Z79.899 Other long term (current) drug therapy; Z88.8 Allergy status to other drugs, medicaments and biological substances; Z91.030 Bee allergy status
CPT/HCPCS: 36415; 71046; 76770; 80048; 80053; 81003; 83605; 83735; 83880; 84145; 84484; 85025; 85610; 85730; 87040; 87636; 93005; 94640; 96374; 96375; 99291

== ENCOUNTER → 2024-07-14 | Outpatient (CLI) | payer OTHER ==
--- NOTE | 2024-07-14 12:35 | CT ---
EXAMINATION TYPE: CT chest wo con CT DLP: 173.7 mGycm, Automated exposure control for dose reduction was used. DATE OF EXAM: 07/14/2024 11:40 AM COMPARISON: CTA chest 04/29/2023, CT chest 09/03/2017 CLINICAL INDICATION:Male, 44 years old with history of I71.20 THORACIC AORTIC ANEURYSM, WITHOUT RUPTU RE,; PHH, thoracic aneurysm TECHNIQUE: Multiple axial images were obtained through the chest without IV contrast. Lack of IV or o ral contrast limits evaluation of solid and hollow organ viscera. . MIP image was performed on a [employer] workstation. Coronal and sagittal reformats reviewed. FINDINGS: LUNGS/ PLEURA: The lung parenchyma appears unremarkable. No suspicious pulmonary nodules or masses. AIRWAY: Patent and unremarkable.. HEART: Size within normal limits.No pericardial effusion Mild coronary artery calcifications present. MEDIASTINUM: No gross evidence of adenopathy. VASCULATURE: Conventional three-vessel aortic arch. The aortic root measures up to 3.6 cm. Stable an eurysmal dilatation of the ascending thoracic aorta measuring up to 4.0 cm. The descending thoracic a john measures up to 2.3 cm. MUSCULOSKELETAL: No acute osseous abnormalities. Multilevel small Schmorl's nodes. SOFT TISSUES/LYMPH NODES: Unremarkable. LOWER NECK: No significant findings. UPPER ABDOMEN: Small hiatal hernia suggested. IMPRESSION: Stable mild aneurysmal dilatation of the ascending thoracic aorta measuring up to 4.0 cm. [facility], , 07/14/2024 12:33 PM
== END | disposition home or self-care (01) ==
LOC: RADCTMAIN 07-12 16:47
PROVIDERS: ATTEND Surgery
DX: I71.21 Aneurysm of the ascending aorta, without rupture (principal)
CPT/HCPCS: 71250

== ENCOUNTER → 2024-09-15 | Outpatient (CLI) | payer OTHER ==
[2024-09-15 19:10] LABS: BUN/Creat Ratio 15.36 Ratio (12.00-20.00); Blood Urea Nitrogen 21.5 mg/dL (9.0-27.0); Calcium 9.5 mg/dL (8.7-10.3); Carbon Dioxide 27.2 mmol/L (21.6-31.8); Chloride 98 mmol/L (96-109); Glucose 94 mg/dL (70-110); Potassium 4.2 mmol/L (3.5-5.5); Sodium 135 mmol/L (135-145)
== END | disposition home or self-care (01) ==
LOC: LABWHC1 12:44
PROVIDERS: ATTEND Internal Medicine Interventional Cardiology
DX: N18.9 Chronic kidney disease, unspecified (principal)
CPT/HCPCS: 36415; 80048